=== PATIENT | male | born 1955 | race Caucasian/White ===

== ENCOUNTER → 2017-06-15 | Day surgery (SDC) | payer BC ==
[2017-06-03 13:23] VITALS: BMI 24.0
[~2017-06-15] VITALS: Ht 172.7 cm; Wt 72.7 kg
[~2017-06-15] MED LIST: FLUT50SP45 NAE; LIDOCAINE HCL 2% 2 ML VIAL (20MG/ML) ONE; PROPOFOL IV EMULSION 10 MG/ML 20 ML VIAL IV ONE
[2017-06-15 11:14] VITALS: Ht 172.7 cm; Wt 72.7 kg
--- NOTE | 2017-06-15 11:40 | Endo History and Physical ---
History & Physical Date of Service: Jun 15, 2017. Chief Complaint: SCREENING FOR COLON CANCER AND DYSPHAGIA Referring Physician: DR RAMBO ALCALA History of Present Illness 61 yo CM who presents for EGD secondary to dysphagia and screening colonoscopy. Past Surgical History Hx Cardiac Surgery: No Hx Internal Defibrillator: No Hx Pacemaker: No Hx Abdominal Surgery: No Hx of Implantable Prosthesis: No Hx Post-Op Nausea and Vomiting: No Hx Cancer Surgery: No Hx Thoracic Surgery: No Hx Orthopedic: Yes (LEFT ANKLE FX REPAIR, RT/LEFT KNEE SURGERY, PARTIAL FINGER AMPUTATION) Hx Urinary Tract Surgery: Yes (CYSTOCOPY AND STONE REMOVAL, LITHOTRIPSY) Family History None Social History Smoking Status: Never Smoker Hx Substance Use: No Hx Alcohol Use: Yes (8-10 BEERS PER WEEK) Allergies Coded Allergies: Neomycin (Verified Allergy, Unknown, rash from topical ointment, 06/03/17) Current Medications Reported Home Medications Medications Dose Route/Sig Max Daily Dose Days Date Category Allergy Nasal [place] 24 Ho (Fluticasone Propionate (Nasal)) 50 Mcg/Act Spr 1 [place] TODD DAILY PRN 06/03/17 Reported Vital Signs Weight (Kilograms): 72.73 Height (Feet): 5 Height (Inches): 8 Date Time Temp Pulse Resp B/P (MAP) Pulse Ox O2 Delivery O2 Flow Rate FiO2 06/15/17 11:19 37.2 67 18 170/95 (120) 95 Room Air Physical Exam General Appearance: WD/WN, no apparent distress Respiratory/Chest: Auscultation: breath sounds normal Cardiovascular: Heart Auscultation: RRR Abdomen: Bowel Sounds: normal Inspection & Palpation: soft, non-distended, no tenderness, guarding & rebound Assessment and Plan Assessment: 61 yo CM who presents for EGD secondary to dysphagia and screening colonoscopy. Plan: Proceed with EGD and colonoscopy.
--- NOTE | 2017-06-15 12:31 | Discharge Instructions ---
Endoscopy Patient Instructions Date / Procedure(s) Performed Jun 15, 2017. Colonoscopy, EGD Allergy Information Coded Allergies: Neomycin (Verified Allergy, Unknown, rash from topical ointment, 06/03/17) Discharge Date / Findings Jun 15, 2017. EGD: Esophageal brushings Colonoscopy: Diverticulosis, Internal hemorrhoids Medication Instructions OK to resume all medications today as prescribed Provider Instructions Activity Restrictions - No exercising or heavy lifting for 24 hours. - Do not drink alcohol the day of the procedure. - Do not drive a car or operate machinery until the day after the procedure. - Do not make any important decisions or sign important papers in 24 hours after the procedure. Following Day: - Return to full activity which may include returning to work/school. Diet Start your diet with liquids and light foods (jello, soup, juice, toast). Then eat your usual diet if not nauseated. Treatment For Common After Affects For mild abdominal pain, bloating, or excessive gas: - Rest - Eat lightly - Lie on right side Follow-Up Information Follow-up with DR RAMBO ALCALA as scheduled Anesthesia Information What You Should Know You have had a procedure that required some medicine to reduce anxiety and discomfort. This treatment is called moderate sedation. After receiving the treatment, you may be sleepy, but you will be able to breathe on your own. The effects of the treatment may last for several hours. Follow these instructions along with Activity/Diet recommendations noted above: * Do NOT do anything where dizziness or clumsiness would be dangerous. * Rest quietly at home today, then you can be up and about tomorrow. * Have a responsible person stay with you the rest of today. * You may have had an I.V. today. If so, you may take the dressing off later today. Recommendations Call your doctor if: * Trouble breathing * Continuous vomiting for more than 24 hours * Temperature above 101 degrees * Severe abdominal pain or bloating * Pain not relieved by pain medicine ordered * There is increased drainage or redness from any incision * A large amount of rectal bleeding greater than 2-3 tablespoons. (If you had a polyp/s removed or have hemorrhoids, a small amount of blood - from the rectum is to be expected.) * You have any unanswered questions or concerns. IN THE EVENT OF A SERIOUS EMERGENCY, GO TO THE NEAREST EMERGENCY ROOM Your discharge instructions were prepared by provider Ranjan Puckett. Patient Instructions Signature Page Damian Gee Patient (or Guardian) Signature/Date: I have read and understand the instructions given to me by my caregivers. Caregiver/RN/Doctor Signature/Date: The above-named patient and/or guardian has received patient instructions on this date. + Original Patient Signature Page (only) stays with chart. Please make copy for patient.
--- NOTE | 2017-06-15 12:41 | GI REPORT ---
Procedure Date: 06/15/2017 11:36 AM Procedure: Upper GI endoscopy Indications: Dysphagia Medicines: Monitored Anesthesia Care Complications: No immediate complications. Estimated Blood Loss: Estimated blood loss: none. Procedure: Pre-Anesthesia Assessment: - Prior to the procedure, a History and Physical was performed, and patient medications and allergies were reviewed. The patient's tolerance of previous anesthesia was also reviewed. The risks and benefits of the procedure and the sedation options and risks were discussed with the patient. All questions were answered, and informed consent was obtained. Prior Anticoagulants: The patient has taken no previous anticoagulant or antiplatelet agents. ASA Grade Assessment: II - A patient with mild systemic disease. After reviewing the risks and benefits, the patient was deemed in satisfactory condition to undergo the procedure. After obtaining informed consent, the endoscope was passed under direct vision. Throughout the procedure, the patient's blood pressure, pulse, and oxygen saturations were monitored continuously. The scope was introduced through the mouth, and advanced to the second part of duodenum. The upper GI endoscopy was accomplished without difficulty. The patient tolerated the procedure well. Findings: Patchy candidiasis was found in the middle third of the esophagus and in the lower third of the esophagus. Cells for cytology were obtained by brushing. The entire examined stomach was normal. The examined duodenum was normal. Impression: - Monilial esophagitis. Cells for cytology obtained. - Normal stomach. - Normal examined duodenum. Recommendation: - Resume previous diet. - Continue present medications. - Await pathology results from brushings. - Return to primary care physician as previously scheduled. Ranjan Puckett DO 06/15/2017 12:40:19 PM This report has been signed electronically. Note Initiated On: 06/15/2017 11:36 AM I attest to the content of the Intraoperative Record and orders documented therein, exceptions below
--- NOTE | 2017-06-15 12:42 | GI REPORT ---
Procedure Date: 06/15/2017 11:56 AM Procedure: Colonoscopy Indications: Screening for colorectal malignant neoplasm Medicines: Monitored Anesthesia Care Complications: No immediate complications. Estimated Blood Loss: Estimated blood loss: none. Procedure: Pre-Anesthesia Assessment: - Prior to the procedure, a History and Physical was performed, and patient medications and allergies were reviewed. The patient's tolerance of previous anesthesia was also reviewed. The risks and benefits of the procedure and the sedation options and risks were discussed with the patient. All questions were answered, and informed consent was obtained. Prior Anticoagulants: The patient has taken no previous anticoagulant or antiplatelet agents. ASA Grade Assessment: II - A patient with mild systemic disease. After reviewing the risks and benefits, the patient was deemed in satisfactory condition to undergo the procedure. After I obtained informed consent, the scope was passed under direct vision. Throughout the procedure, the patient's blood pressure, pulse, and oxygen saturations were monitored continuously. The On-site loaner was introduced through the anus and advanced to the terminal ileum. The colonoscopy was performed without difficulty. The patient tolerated the procedure well. The quality of the bowel preparation was good. The terminal ileum, ileocecal valve, appendiceal orifice, and rectum were photographed. Findings: The perianal and digital rectal examinations were normal. Multiple small-mouthed diverticula were found in the sigmoid colon. Non-bleeding internal hemorrhoids were found during retroflexion. The hemorrhoids were small. Impression: - Diverticulosis in the sigmoid colon. - Non-bleeding internal hemorrhoids. - No specimens collected. Recommendation: - Resume previous diet. - Continue present medications. - Repeat colonoscopy in 10 years for surveillance. - Return to primary care physician as previously scheduled. Ranjan Puckett, 06/15/2017 12:41:51 PM This report has been signed electronically. Note Initiated On: 06/15/2017 11:56 AM I attest to the content of the Intraoperative Record and orders documented therein, exceptions below
[2017-06-15 12:45] VITALS: BP 135/80; PULSE 56; O2SAT 96
--- NOTE | 2017-06-15 13:54 | Anesthesiology Progress Note ---
Anesthesia Post Op Note Date & Time Jun 15, 2017 at 13:54 Vital Signs Pain Intensity: 0 Vital Signs Past 12 Hours Date Time Temp Pulse Resp B/P (MAP) Pulse Ox O2 Delivery O2 Flow Rate FiO2 06/15/17 12:45 56 16 135/80 (98) 96 Room Air 06/15/17 12:30 55 16 138/84 (102) 95 Room Air 06/15/17 12:15 63 16 115/65 (82) 96 Room Air 06/15/17 11:19 37.2 67 18 170/95 (120) 95 Room Air Notes Mental Status: alert / awake / arousable, participated in evaluation Pt Amnestic to Procedure: Yes Nausea / Vomiting: adequately controlled Pain: adequately controlled Airway Patency, RR, SpO2: stable & adequate BP & HR: stable & adequate Hydration State: stable & adequate Anesthetic Complications: no major complications apparent
== END | disposition home or self-care (01) ==
LOC: C.GI 10:41
PROVIDERS: ATTEND Internal Medicine
DX: R13.10 Dysphagia, unspecified (principal); Z12.11 Encounter for screening for malignant neoplasm of colon; K57.30 Diverticulosis of large intestine without perforation or abscess without bleeding; K64.8 Other hemorrhoids; Z88.1 Allergy status to other antibiotic agents; I10 Essential (primary) hypertension; E78.5 Hyperlipidemia, unspecified; Z86.711 Personal history of pulmonary embolism; M19.90 Unspecified osteoarthritis, unspecified site; Z87.442 Personal history of urinary calculi

== ENCOUNTER → 2017-06-22 | Outpatient (CLI) | payer BC ==
[~2017-06-22] MED LIST changes: -LIDOCAINE HCL 2% 2 ML VIAL (20MG/ML) ONE; -PROPOFOL IV EMULSION 10 MG/ML 20 ML VIAL IV ONE
[2017-06-22 10:22] LABS: HEMATOCRIT 43.9 % (42-52); MEAN CELL VOLUME 96.1 fL (80-100); MEAN CORPUSCULAR HEMOGLOBIN 32.8 pg (25-34); MEAN CORPUSCULAR HGB CONC 34.2 g/dl (32-36); MEAN PLATELET VOLUME 12.1 fL (7.4-10.4); PLATELET COUNT 220 K/uL (130-400); RED CELL DISTRIBUTION WIDTH CV 12.5 % (11.5-14.5); RED CELL DISTRIBUTION WIDTH SD 43.7 fL (36.4-46.3); WHITE BLOOD COUNT 5.18 K/uL (4.8-10.8)
--- NOTE | 2017-06-22 10:23 | DIAGNOSTIC IMAGING REPORT ---
[facility]UB CLINICAL HISTORY: ABD PAIN pain. COMPARISON STUDY: No previous studies for comparison. FINDINGS: The soft tissues, psoas shadows, renal outlines and intestinal gas pattern appear normal. There is no evidence for bowel obstruction. No abnormal abdominal calcifications are seen. IMPRESSION: Normal study. The above report was generated using voice recognition software. It may contain grammatical, syntax or spelling errors. Electronically signed by: Khoi More M.D. 06/22/2017 10:22 AM Dictated Date/Time: 06/22/2017 10:21 AM
[2017-06-22 10:35] LABS: HEMOGLOBIN A1C 5.3 % (4.5-5.6)
[2017-06-22 12:54] LABS: ALBUMIN 3.5 gm/dl (3.4-5.0); ALT/SGPT 22 U/L (12-78); AST/SGOT 23 U/L (15-37); BLOOD UREA NITROGEN 17 mg/dl (7-18); CALCIUM 8.6 mg/dl (8.5-10.1); CARBON DIOXIDE 24 mmol/L (21-32); CREATININE 0.84 mg/dl (0.60-1.40); GLUCOSE 91 mg/dl (70-99); POTASSIUM 4.2 mmol/L (3.5-5.1); SODIUM 138 mmol/L (136-145)
[2017-06-22 12:58] LABS: ALKALINE PHOSPHATASE 50 U/L (45-117); CHOLESTEROL 176 mg/dl (0-200); LDL CHOLESTEROL CALCULATED 81 mg/dl; TOTAL PROTEIN 6.9 gm/dl (6.4-8.2)
== END | disposition home or self-care (01) ==
LOC: C.RAD 09:14
PROVIDERS: ATTEND Family Medicine
DX: E66.3 Overweight (principal); R10.9 Unspecified abdominal pain; B37.81 Candidal esophagitis

== ENCOUNTER 2023-12-06 20:22 | Observation (INO) ==
[2023-12-06] MEDS: SODIUM CHLORIDE 0.9% 1,000 ML IV ONE ×2 (20:39→21:24)
[2023-12-06 20:51] LABS: iSTAT Creatinine 1.5 mg/dl (0.6-1.3); iSTAT Ionized Calcium 1.24 mmol/l (1.12-1.32); iSTAT Potassium 4.5 mmol/L (3.3-5.0)
--- NOTE | 2023-12-06 20:52 | Emergency Department Note ---
Impression & Plan Acute alteration in mental status, Acute hypotension, Junctional bradycardia, HERSON (acute kidney injury) ED Provider Note NAME: JASWINDER GARNETT AGE: 68 SEX: M : 1955 ARRIVES VIA: Walk-In INFORMANT: Patient, the patient's significant other ED PROVIDER(S): Maximo Stelee DO CHIEF COMPLAINT: Weakness HPI: The patient is a 68-year-old male who presented to the emergency department for possible strokelike symptoms. The patient was at dinner with his significant other when he started feeling very warm and flushed. He started speaking but not making sense. She was concerned and brought him directly to the emergency department. There is no reported trauma. The patient is denying any abdominal pain but does complain of nausea. He is also been complaining of headaches over the course of last few weeks. This is different from him. He has been taking significant amounts of ibuprofen but he denies having any black or tarry stools. The patient denies having any vomiting. He denies having any chest pain. ROS: See above HPI for pertinent positives & negatives. A total of 10 systems reviewed and were otherwise negative. PAST MEDICAL HISTORY: See Below PAST SURGICAL HISTORY: See Below FAMILY HISTORY: See Below SOCIAL HISTORY: See Below HOME MEDICATIONS: See Below ALLERGIES: See Below VITALS: See Below PHYSICAL EXAMINATION: GENERAL: The is listless and slow to respond to questions. EYES: The conjunctivae are clear. The pupils are round and reactive. EARS, NOSE, MOUTH AND THROAT: The nose is without any evidence of any deformity. NECK: The neck is nontender and supple. RESPIRATORY: Normal respiratory effort is noted there is no evidence of wheezing rhonchi or rales CARDIOVASCULAR: Regular rate and rhythm noted there no murmurs rubs or gallops normal S1 normal S2. GASTROINTESTINAL: The abdomen is soft. The him and is distended with diffuse tenderness to palpation. There is no guarding rigidity. MUSCULOSKELETAL/EXTREMITIES: There is no evidence of gross deformity full range of motion is noted in the hips and shoulders. SKIN: Skin was cool and diaphoretic. There is no pedal edema. NEUROLOGIC: Patient is awake to verbal stimuli. He was oriented to person place and situation. Strength was symmetric but diminished. MEDICAL DECISION MAKING: The patient is a 68-year-old male who presented to the emergency department for an evaluation of altered mental status. The patient was at dinner with his significant other. He started acting inappropriately. She is a medical provider and was concerned he may be suffering from a stroke. The patient became very diaphoretic. He was having trouble ambulating. The patient arrived via triage. He was brought directly back to a resuscitation room. He was found to be hypotensive. The patient was also found to be bradycardic. His initial monitor appeared to be consistent with a junctional rhythm. The patient was immediately treated with IV fluids as well as IV antibiotics for possible sepsis. On reevaluation his heart rate had gone to a sinus rhythm. Blood pressure continue to augment after IV fluid hydration. I discussed the patient's laboratory and radiographic studies with him and his significant other. He did not appear to have any acute area of hemorrhage. Rectal exam revealed heme-negative stool. The patient was significantly improved on reevaluation and and I am wondering if this could be secondary to a cardiac dysrhythmia especially given the bradycardia noted on initial presentation. [facility] agreed to evaluate the patient in the emergency department for further management and disposition. Triage Nursing notes reviewed. Prior medical records reviewed Vital Signs: reviewed and remarkable for initial hypotension. Differential diagnosis: Vasovagal event, dehydration, infection, hypoglycemia, electrolyte abnormalities, cardiac sources, intracerebral event, pulmonary embolism, seizure, toxicologic, neurologic, as well as other pathologies. ER treatment provided: See below Diagnostics interpreted by me: ECG: EKG was obtained in the emergency department. My interpretation is bradycardia at 43 bpm. Mostly this was sinus but there was runs of junctional bradycardia. There is no acute ST segment abnormalities noted. There were no PVCs noted. This was compared to a tracing from May 01, 2023. The previous tracing did show sinus rhythm within normal rate. EKG was obtained in the emergency department. My interpretation is normal sinus rhythm at 63 bpm. There is no ectopy. There is no acute ST segment abnormalities noted. This compares similar to the EKG that was from May 01, 2023. Cardiac Monitoring: An order was placed for continuous cardiac monitoring. The monitor shows a rate of 65 bpm with sinus rhythm. Laboratory studies: As stated above and show below. Imaging studies: See below. Radiographic imaging was reviewed by myself Consultation(s): I discussed this case with Dr. Hernandez who is on-call for the [place] hospitalist group. ED COURSE: Procedures: none Critical Care: I have personally spent greater than 35 minutes of critical care time in the direct management of this patient. This includes bedside care, interpretation of diagnostic studies, and testing, discussion with consultants, patient, and family members, and other required patient management activities. This 35 minutes is in excess of all separately billable procedures. Past Med/Surg History Problem List (Updated 12/07/23 @ 01:27 by Maximo Steele DO) HERSON (acute kidney injury) (Acute) Junctional bradycardia (Acute) Acute hypotension (Acute) Acute alteration in mental status (Acute) Erectile dysfunction due to psychophysiologic disorder Hyperlipidemia ADHD GERD (gastroesophageal reflux disease) HTN (hypertension) (Acute) Medical History No pertinent family history Surgical History No pertinent past surgical history Family History Father Myocardial infarction Diabetes Hypertension Brother Prostate cancer Denies family history of Ovarian cancer Breast cancer Colorectal cancer Social History Smoking Status: Never smoker Second Hand Exposure: Yes; Hx Alcohol Use: No Hx Substance Use: No Preferred Language: Czech Visual Impairment: Limited Hearing Ability: Normal Beliefs That Will Affect Care: None marital status: Current Living Situation: Family current occupational status: retired Feels Safe at Home: Yes Childhood Exposure to Second-Hand Smoke: Yes Dental Care, Regularly: Yes Physical Activity Frequency: Daily Seatbelt Use: always Sunscreen Use: No Allergies Allergies Allergy/AdvReac Type Severity Reaction Status Date / Time neomycin Allergy Unknown rash from Verified 12/06/23 23:53 topical ointment Penicillins Allergy Rash Verified 12/06/23 23:53 Home Meds Home Medications Medication Instructions Recorded Confirmed cholecalciferol (vitamin D3) 25 25 mcg PO DAILY 12/06/23 12/06/23 mcg (1,000 unit) tablet (Vitamin D3) coQ10 (ubiquinol) 100 mg capsule 0 mg PO DAILY 12/06/23 12/06/23 dextroamphetamine-amphetamine ER 20 mg PO QAM 12/06/23 12/06/23 20 mg 24hr capsule,extend release irbesartan 300 mg tablet 300 mg PO DAILY 12/06/23 12/06/23 pantoprazole 40 mg tablet,delayed 40 mg PO DAILY 12/06/23 12/06/23 release rosuvastatin 10 mg tablet 10 mg PO HS 12/06/23 12/06/23 sildenafil 50 mg tablet 50 mg PO DAILY PRN .erectile 12/06/23 12/06/23 disfunction Results & Data (ED) Vital Signs Vital Signs - 24 hr 12/06/23 20:24 12/06/23 20:30 12/06/23 20:39 Temperature 36.7 C Temperature Source Temporal Artery Scan Pulse Rate 61 Pulse Rate [Apical] 49 L Pulse Rate from SpO2 Sensor Respiratory Rate 19 Respiratory Effort / Characteristics Respiratory Depth Respiratory Pattern Blood Pressure Blood Pressure [Right Arm] 83/51 L 79/56 L Blood Pressure Mean Blood Pressure Mean [Right Arm] 61 63 Blood Pressure Position [Right Arm] Pulse Oximetry 94 Oxygen Delivery Method Room Air Sepsis Recent Fever Within 48 Hours No Sepsis New/Unexplained Change in Mental Status N/A Sepsis Action Taken by Nursing No Action Required 12/06/23 20:40 12/06/23 20:41 12/06/23 20:45 Temperature Temperature Source Pulse Rate 50 L Pulse Rate [Apical] 59 L Pulse Rate from SpO2 Sensor Respiratory Rate Respiratory Effort / Characteristics Respiratory Depth Respiratory Pattern Blood Pressure Blood Pressure [Right Arm] 123/74 Blood Pressure Mean Blood Pressure Mean [Right Arm] 90 Blood Pressure Position [Right Arm] Pulse Oximetry 92 Oxygen Delivery Method Room Air Sepsis Recent Fever Within 48 Hours Sepsis New/Unexplained Change in Mental Status Sepsis Action Taken by Nursing 12/06/23 21:09 12/06/23 21:09 12/06/23 21:10 Temperature Temperature Source Pulse Rate 57 L Pulse Rate [Apical] Pulse Rate from SpO2 Sensor 59 L Respiratory Rate 20 Respiratory Effort / Characteristics Respiratory Depth Respiratory Pattern Blood Pressure 119/68 119/68 121/67 Blood Pressure [Right Arm] Blood Pressure Mean 86 85 88 Blood Pressure Mean [Right Arm] Blood Pressure Position [Right Arm] Pulse Oximetry 95 Oxygen Delivery Method Sepsis Recent Fever Within 48 Hours Sepsis New/Unexplained Change in Mental Status Sepsis Action Taken by Nursing 12/06/23 21:15 12/06/23 21:30 12/06/23 21:45 Temperature Temperature Source Pulse Rate 61 Pulse Rate [Apical] 62 62 Pulse Rate from SpO2 Sensor Respiratory Rate 24 20 Respiratory Effort / Characteristics Respiratory Depth Respiratory Pattern Blood Pressure 127/77 Blood Pressure [Right Arm] 125/72 116/67 Blood Pressure Mean 87 Blood Pressure Mean [Right Arm] 89 83 Blood Pressure Position [Right Arm] Semi-fowlers Pulse Oximetry 95 94 Oxygen Delivery Method Room Air Sepsis Recent Fever Within 48 Hours Sepsis New/Unexplained Change in Mental Status Sepsis Action Taken by Nursing 12/06/23 22:00 12/06/23 22:15 12/06/23 22:30 Temperature Temperature Source Pulse Rate Pulse Rate [Apical] 59 L 67 60 Pulse Rate from SpO2 Sensor Respiratory Rate 17 14 16 Respiratory Effort / Characteristics Non-Labored Spontaneous Respiratory Depth Normal Respiratory Pattern Regular Blood Pressure Blood Pressure [Right Arm] 108/62 107/71 108/73 Blood Pressure Mean Blood Pressure Mean [Right Arm] 77 83 84 Blood Pressure Position [Right Arm] Semi-fowlers Semi-fowlers Pulse Oximetry 94 97 94 Oxygen Delivery Method Room Air Room Air Room Air Sepsis Recent Fever Within 48 Hours Sepsis New/Unexplained Change in Mental Status Sepsis Action Taken by Nursing 12/06/23 22:45 12/06/23 23:43 Temperature Temperature Source Pulse Rate Pulse Rate [Apical] 67 60 Pulse Rate from SpO2 Sensor Respiratory Rate 19 19 Respiratory Effort / Characteristics Respiratory Depth Respiratory Pattern Blood Pressure Blood Pressure [Right Arm] 108/61 122/74 Blood Pressure Mean Blood Pressure Mean [Right Arm] 76 90 Blood Pressure Position [Right Arm] Semi-fowlers Pulse Oximetry 93 95 Oxygen Delivery Method Room Air Room Air Sepsis Recent Fever Within 48 Hours Sepsis New/Unexplained Change in Mental Status Sepsis Action Taken by [facility] Medications Current Medication List: was personally reviewed by me Laboratory Data Attestation: I reviewed the patient's lab results. 12/06/23 20:34 12/06/23 20:34 Lab Results 12/06/23 12/06/23 12/06/23 Range/Units 20:28 20:34 20:38 WBC 7.60 (4.8-10.8) K/ul RBC 4.78 (4.70-6.10) M/uL Hgb 15.8 (14.0-18.0) g/dl POC Hgb 15.0 (14.0-18.0) g/dl Hct 45.6 (42.0-52.0) % POC Hct 44 (42-52) % MCV 95.4 (80.0-100.0) fL MCH 33.1 (25.0-34.0) pg MCHC 34.6 (32.0-36.0) g/dL RDW Std Deviation 42.5 (36.4-46.3) fL RDW Coeff of Jaren 12.1 (11.5-14.5) % Plt Count 280 (130-400) K/uL MPV 11.7 (9.4-12.4) fL Immature Gran % (Auto) 0.3 % Neut % (Auto) 51.6 % Lymph % (Auto) 32.8 % Moca % (Auto) 11.7 % Eos % (Auto) 2.8 % Baso % (Auto) 0.8 % Neut # (Auto) 3.93 (1.40-6.50) K/uL Lymph # (Auto) 2.49 (1.20-3.40) K/uL Moca # (Auto) 0.89 H (0.11-0.59) K/uL Eos # (Auto) 0.21 (0.00-0.50) K/uL Baso # (Auto) 0.06 (0.00-0.20) K/uL Immature Gran # (Auto) 0.02 (0.01-0.20) K/uL PT 10.3 (9.0-12.0) Seconds INR 0.9 (0.9-1.1) APTT 22 (21-31) Seconds PTT Ratio 0.8 VBG pH (7.36-7.41) VBG pCO2 (38-50) mmHg VBG pO2 mmHg VBG HCO3 mmol/L VBG O2 Saturation % VBG Base Excess mEq/L POC Sodium 139 (135-144) mmol/L Sodium 139 (136-145) mmol/L POC Potassium 4.5 (3.3-5.0) mmol/L Potassium 4.6 (3.5-5.1) mmol/L POC Chloride 106 (101-112) mmol/L Chloride 105 (98-107) mmol/L Carbon Dioxide 24 (21-32) mmol/L POC Total CO2 22 L (24-31) mmol/L Anion Gap 10 (3-11) POC Anion Gap 17.0 (16-25) mmol/L POC BUN 23 H (7-18) mg/dl BUN 25 H (6-23) mg/dl Creatinine 1.41 H (0.6-1.4) mg/dl POC Creatinine 1.5 H (0.6-1.3) mg/dl Est Cr Clr Drug Dosing 55.2 ml/min Est GFR ( Amer) 59.3 ml/min Est GFR (Non-Af Amer) 51.2 ml/min BUN/Creatinine Ratio 17.7 (10-20) Glucose 94 (70-99(Fasting)) mg/dl POC Glucose 90 (70-99) mg/dl POC Glucose (other) 94 (70-99) mg/dl Lactate 2.4 H* (0.4-2.0) mmol/L Calcium 10.2 (8.6-10.3) mg/dl POC Ioniz Calcium [place] 1.24 (1.12-1.32) mmol/l Magnesium 2.2 (1.7-2.4) mg/dl Total Bilirubin 0.3 (0.2-1.0) mg/dl Direct Bilirubin TNP AST 28 (13-39) U/L ALT 18 (7-52) U/L Alkaline Phosphatase 62 (34-104) U/L Troponin I High Sens 11.4 (0-20) pg/ml Total Protein 7.6 (6.0-8.3) gm/dl Albumin 4.7 (3.4-5.0) gm/dl Procalcitonin 0.06 (0-0.5) ng/ml Random Cortisol mcg/dl Ethyl Alcohol mg/dL (<10.0) mg/dl Blood Type Antibody Screen 12/06/23 12/06/23 Range/Units 21:38 22:18 WBC (4.8-10.8) K/ul RBC (4.70-6.10) M/uL Hgb (14.0-18.0) g/dl POC Hgb (14.0-18.0) g/dl Hct (42.0-52.0) % POC Hct (42-52) % MCV (80.0-100.0) fL MCH (25.0-34.0) pg MCHC (32.0-36.0) g/dL RDW Std Deviation (36.4-46.3) fL RDW Coeff of Jaren (11.5-14.5) % Plt Count (130-400) K/uL MPV (9.4-12.4) fL Immature Gran % (Auto) % Neut % (Auto) % Lymph % (Auto) % Moca % (Auto) % Eos % (Auto) % Baso % (Auto) % Neut # (Auto) (1.40-6.50) K/uL Lymph # (Auto) (1.20-3.40) K/uL Moca # (Auto) (0.11-0.59) K/uL Eos # (Auto) (0.00-0.50) K/uL Baso # (Auto) (0.00-0.20) K/uL Immature Gran # (Auto) (0.01-0.20) K/uL PT (9.0-12.0) Seconds INR (0.9-1.1) APTT (21-31) Seconds PTT Ratio VBG pH 7.32 L (7.36-7.41) VBG pCO2 48 (38-50) mmHg VBG pO2 44 mmHg VBG HCO3 25 mmol/L VBG O2 Saturation 70.0 % VBG Base Excess -1.8 mEq/L POC Sodium (135-144) mmol/L Sodium (136-145) mmol/L POC Potassium (3.3-5.0) mmol/L Potassium (3.5-5.1) mmol/L POC Chloride (101-112) mmol/L Chloride (98-107) mmol/L Carbon Dioxide (21-32) mmol/L POC Total CO2 (24-31) mmol/L Anion Gap (3-11) POC Anion Gap (16-25) mmol/L POC BUN (7-18) mg/dl BUN (6-23) mg/dl Creatinine (0.6-1.4) mg/dl POC Creatinine (0.6-1.3) mg/dl Est Cr Clr Drug Dosing ml/min Est GFR ( Amer) ml/min Est GFR (Non-Af Amer) ml/min BUN/Creatinine Ratio (10-20) Glucose (70-99(Fasting)) mg/dl POC Glucose (70-99) mg/dl POC Glucose (other) (70-99) mg/dl Lactate 1.4 (0.4-2.0) mmol/L Calcium (8.6-10.3) mg/dl POC Ioniz Calcium Carolina (1.12-1.32) mmol/l Magnesium (1.7-2.4) mg/dl Total Bilirubin (0.2-1.0) mg/dl Direct Bilirubin AST (13-39) U/L ALT (7-52) U/L Alkaline Phosphatase (34-104) U/L Troponin I High Sens (0-20) pg/ml Total Protein (6.0-8.3) gm/dl Albumin (3.4-5.0) gm/dl Procalcitonin (0-0.5) ng/ml Random Cortisol 20.23 mcg/dl Ethyl Alcohol mg/dL < 10.0 (<10.0) mg/dl Blood Type A Positive Antibody Screen NEGATIVE Administered Medications Discontinued Medications Sodium Chloride (Nss) 1,000 mls @ 999 mls/hr IV .Q1H1M ONE Stop: 12/06/23 21:34 Last Infusion: 12/06/23 21:40 Dose: Infused Documented By: Admin: 12/06/23 20:39 Dose: 999 mls/hr Documented By: BRUNO Ceftriaxone Sodium (Rocephin) 2,000 mg in 50 mls @ 100 mls/hr IV NOW STA Stop: 12/06/23 21:03 Last Infusion: 12/06/23 22:05 Dose: Infused Documented By: Admin: 12/06/23 21:35 Dose: 100 mls/hr Documented By: BRUNO Pantoprazole Sodium 40 mg/ (Syringe) 10 mls @ 5 mls/min IV NOW ONE Stop: 12/06/23 20:36 Last Admin: 12/06/23 22:01 Dose: 5 mls/min Documented By: BRUNO Famotidine (Pepcid 20mg Iv Push) 20 mg in 5 mls @ 2.5 mls/min IV NOW STA Stop: 12/06/23 20:36 Last Admin: 12/06/23 21:27 Dose: 2.5 mls/min Documented By: BRUNO Sodium Chloride (Nss) 1,000 mls @ 999 mls/hr IV .Q1H1M ONE Stop: 12/06/23 21:40 Last Infusion: 12/06/23 22:20 Dose: Infused Documented By: Admin: 12/06/23 21:24 Dose: 999 mls/hr Documented By: BRUNO Thiamine HCl 200 mg/ Sodium (Chloride) 52 mls @ 210 mls/hr IV NOW STA Stop: 12/06/23 20:58 Last Infusion: 12/06/23 22:24 Dose: Infused Documented By: Admin: 12/06/23 22:03 Dose: 210 mls/hr Documented By: BRUNO Ioversol (Optiray 320 125ml) 115 ml IV ONCE ONE Stop: 12/06/23 21:04 Last Admin: 12/06/23 21:03 Dose: 115 ml Documented By: JOE Imaging Data Attestation: I personally reviewed and interpreted this imaging study as follows: My Impression: 1 view chest x-ray was obtained in the emergency department. My interpretation is no free air or definite infiltrate, final report below. CT of the brain was obtained in the emergency department. My interpretation is no intracranial hemorrhage or mass effect, final report below. CT of the chest was obtained in the emergency department. My interpretation is no free air or signs of infiltrate, final report below. CT of the abdomen and pelvis was obtained in the emergency department. My interpretation is no free air or signs of bowel obstruction, there was enlargement of the gastric shadow, final report below. Radiologist's Impression: Abdomen/Pelvis CT 12/06/23 20:43 Exam(s): CT ABDOMEN + PELVIS With Contrast IV Amt: 115 ml opti 320 EXAM: CT Abdomen and Pelvis With Intravenous Contrast CLINICAL HISTORY: low BP. TECHNIQUE: Axial computed tomography images of the abdomen and pelvis with intravenous contrast. CTDI is 27.86 mGy and DLP is 1387.11 mGy-cm. Automated exposure control was utilized for the study. A dose lowering technique was utilized adhering to the principles of ALARA. CONTRAST: Patient received 115 ml opti 320 of IV contrast COMPARISON: No relevant prior studies available. FINDINGS: Lung bases: For findings regarding the lung bases, please see the CTA report of the chest performed concurrently. No consolidation. ABDOMEN: Liver: Unremarkable. No mass. Gallbladder and bile ducts: Unremarkable. No calcified stones. No ductal dilation. Pancreas: Unremarkable. No mass. No ductal dilation. Spleen: Unremarkable. No splenomegaly. Adrenals: Unremarkable. No mass. Kidneys and ureters: Kidneys demonstrate normal enhancement. No hydronephrosis or nephrolithiasis. Cortical cysts are noted laterally and posteriorly involving the left mid to inferior pole with the largest cyst laterally measuring 3.1 x 3.8 cm. No definite internal solid components or complex features. No follow-up required. Stomach and bowel: Stomach is moderately to nearly completely distended with retained oral contents. No gastric mucosal thickening noted. No evidence for bowel obstruction. No definite asymmetric bowel mucosal abnormality. Retained fecal appearing material in nondilated distal small bowel loops noted in the pelvis. Mild stool burden. Diverticulosis noted involving the sigmoid colon. No obvious diverticulitis, accounting for limitations with mild respiratory artifact. PELVIS: Appendix: A normal caliber appendix is noted in the right lower quadrant. Bladder: Unremarkable. No mass. Reproductive: Unremarkable as visualized. ABDOMEN and PELVIS: Intraperitoneal space: Unremarkable. No free air. No significant fluid collection. Bones/joints: No acute fracture. No dislocation. Soft tissues: Unremarkable. Vasculature: Atherosclerotic calcification involving the aorta. No dissection or aneurysm. Atherosclerotic changes also noted involving the iliac arteries. Lymph nodes: Unremarkable. No enlarged lymph nodes. IMPRESSION: 1. No evidence for bowel obstruction. No definite asymmetric bowel mucosal abnormality. Retained fecal appearing material in nondilated distal small bowel loops noted in the pelvis is a nonspecific finding and is presumed normal variation. Mild enteritis with delayed transit through the small bowel is also a consideration. 2. Mild stool burden. Diverticulosis noted involving the sigmoid colon. No obvious diverticulitis, accounting for limitations with mild respiratory artifact. No free intraperitoneal fluid or pneumoperitoneum. Incidental normal caliber appendix. 3. Atherosclerotic calcification of the abdominal aorta. No dissection, significant aneurysm or acute retroperitoneal abnormality. 4. No acute osseous abnormality. Electronically signed by: Slim Dc MD 12/06/23 22:14 PM Chest CTA 12/06/23 20:43 Exam(s): CTA CHEST EXAM: CT Angiography Chest With Intravenous Contrast CLINICAL HISTORY: Evaluate for PE. TECHNIQUE: Axial computed tomographic angiography images of the chest with intravenous contrast. CTDI is 27.86 mGy and DLP is 1387.11 mGy-cm. Automated exposure control was utilized for the study. A dose lowering technique was utilized adhering to the principles of ALARA. MIP reconstructed images were created and reviewed. COMPARISON: CTA chest dated 10/16/2010 FINDINGS: Pulmonary arteries: Unremarkable. No pulmonary embolism. Aorta: The thoracic aorta is elongated and somewhat tortuous but is normal in caliber without evidence for aneurysm. No dissection. Lungs: No focal consolidation. No mass. Minimal dependent subsegmental atelectatic changes in the posterior lower lobes. Pleural space: Unremarkable. No significant effusion. No pneumothorax. Heart: The cardiac chambers are upper normal limits, stable from the previous examination. Mild prominence of the right ventricle is stable in appearance. Bones/joints: Multilevel degenerative changes involving the thoracic spine. Chronic anterior wedging noted involving T6-T8 levels. Multilevel degenerative changes with anterior hypertrophic osteophytes. No dislocation. Soft tissues: Unremarkable. Lymph nodes: Unremarkable. No enlarged lymph nodes. IMPRESSION: No pulmonary embolism. Electronically signed by: Slim Dc MD 12/06/23 22:[address] 12/06/23 20:43 Exam(s): CT HEAD Without Contrast EXAM: CT Head Without Intravenous Contrast CLINICAL HISTORY: low bp. TECHNIQUE: Axial computed tomography images of the head/brain without intravenous contrast. CTDI is 27.86 mGy and DLP is 1387.11 mGy-cm. Automated exposure control was utilized for the study. A dose lowering technique was utilized adhering to the principles of ALARA. COMPARISON: No relevant prior studies available. FINDINGS: Brain: No intracranial hemorrhage. No significant mass effect. No evidence for cortical infarct. Minimal periventricular deep white matter hypodense changes noted bilaterally. Ventricles: No midline shift or ventriculomegaly. Bones/joints: Unremarkable. No acute fracture. Soft tissues: Unremarkable. Sinuses: Unremarkable as visualized. No acute sinusitis. Mastoid air cells: Unremarkable as visualized. No mastoid effusion. IMPRESSION: No acute intracranial process identified. Electronically signed by: Slim Dc MD 12/06/23 22:39 PM Head CTA 12/06/23 20:43 Exam(s): CTA HEAD With Contrast IV Amt: 115 ml opti 320 EXAM: CT Angiography Head With Intravenous Contrast CLINICAL HISTORY: low BP. TECHNIQUE: Axial computed tomographic angiography images of the head with intravenous contrast. CTDI is 27.86 mGy and DLP is 1387.11 mGy-cm. Automated exposure control was utilized for the study. A dose lowering technique was utilized adhering to the principles of ALARA. MIP reconstructed images were created and reviewed. CONTRAST: Patient received 115 ml opti 320 of IV contrast COMPARISON: Noncontrast exam performed earlier FINDINGS: Right internal carotid artery: No acute findings. Intracranial segment is patent with no significant stenosis. No aneurysm. Right anterior cerebral artery: Unremarkable. No occlusion or significant stenosis. No aneurysm. Right middle cerebral artery: Unremarkable. No occlusion or significant stenosis. No aneurysm. Right posterior cerebral artery: Unremarkable. No occlusion or significant stenosis. No aneurysm. Right vertebral artery: Unremarkable as visualized. Left internal carotid artery: Moderate atherosclerotic calcification involving the mid to distal left cavernous internal carotid artery segment. No definite stenosis. The petrous and supraclinoid segments are patent. No aneurysm. Left anterior cerebral artery: Unremarkable. No occlusion or significant stenosis. No aneurysm. Left middle cerebral artery: Unremarkable. No occlusion or significant stenosis. No aneurysm. Left posterior cerebral artery: Unremarkable. No occlusion or significant stenosis. No aneurysm. Left vertebral artery: Unremarkable as visualized. Basilar artery: Unremarkable. No occlusion or significant stenosis. No aneurysm. Dural sinuses/cerebral veins: The dural sinuses are unremarkable. Brain: No abnormal parenchymal enhancement identified. IMPRESSION: Negative intracranial CTA examination. Electronically signed by: Slim Dc MD 12/06/23 22:48 PM Neck CTA 12/06/23 20:43 Exam(s): CTA NECK With Contrast IV Amt: 115 ml opti 320 EXAM: CT Angiography Neck With Intravenous Contrast CLINICAL HISTORY: low BP. TECHNIQUE: Routine carotid CT angiography protocol was performed with intravenous contrast. NASCET criteria using the distal ICAs for comparison were used for evaluation of stenoses. CTDI is 27.86 mGy and DLP is 1387.11 mGy-cm (single acquisition head and neck). Automated exposure control was utilized for the study. A dose lowering technique was utilized adhering to the principles of ALARA. MIP reconstructed images were created and reviewed. CONTRAST: Patient received 115 ml opti 320 of IV contrast (single dose for head and neck) COMPARISON: None. FINDINGS: VASCULATURE: Right common carotid artery: Mild intimal hyperplasia involving the right common carotid artery without significant narrowing. No dissection. Right internal carotid artery: Partially calcified atheromatous changes noted involving the proximal right internal carotid artery, extending to the carotid bifurcation. There is no significant narrowing by NASCET criteria. The distal right internal carotid artery is tortuous but is widely patent. No dissection. Right external carotid artery: Unremarkable. No occlusion. Right vertebral artery: Unremarkable. No occlusion or significant stenosis. No dissection. Left common carotid artery: Mild intimal hyperplasia involving the distal left common carotid artery without significant stenosis. No dissection. Left internal carotid artery: Partially calcified atherosclerotic disease involving the proximal left internal carotid artery, extending to the carotid bifurcation. No significant narrowing by NASCET criteria. The mid to distal left internal carotid artery is tortuous but is patent. No dissection. Left external carotid artery: Unremarkable. No occlusion. Left vertebral artery: Unremarkable. No occlusion or significant stenosis. No dissection. Brachiocephalic and subclavian arteries: There is a type II branching pattern of the proximal great vessels without significant ostial stenosis. Aorta: The aortic arch is tortuous but is patent without aneurysm or dissection. NECK: Bones/joints: Unremarkable. No acute fracture. Soft tissues: Unremarkable. Lung apices: Clear. CAROTID STENOSIS REFERENCE USING NASCET CRITERIA: % ICA stenosis = (1 - narrowest ICA diameter/diameter of distal cervical ICA) x 100. Mild - <50% stenosis. Moderate - 50-69% stenosis. Severe - 70-94% stenosis. Near occlusion - 95-99% stenosis. Occluded - 100% stenosis. IMPRESSION: 1. Atherosclerotic disease involving the carotid bifurcations without significant stenosis bilaterally. The common carotid and internal carotid arteries are otherwise patent. 2. The vertebral arteries are patent bilaterally without stenosis or occlusion. Electronically signed by: Slim Dc MD 12/06/23 23:02 PM Discharge Plan Visit Data Chief Complaint: TIA Symptoms Stated Complaint: NUMB FINGERS, SWEATS, DIZZY, HEADACHE, VISUAL DIST ED Provider: Maximo Steele Discharge Problem: Acute alteration in mental status, Acute hypotension, Junctional bradycardia, HERSON (acute kidney injury) Patient Disposition: Admitted As Inpatient Discharge Instructions Interventions: ED Discharge Assessment Last Done: 12/07/23 01:05
[2023-12-06] MEDS: OPTIRAY 320 125ml IV ONE (21:03)
[2023-12-06 21:20] LABS: Alanine Aminotransferase 18 U/L (7-52); Albumin Level 4.7 gm/dl (3.4-5.0); Alkaline Phosphatase 62 U/L (34-104); Anion Gap 10 (3-11); Aspartate Aminotransferase 28 U/L (13-39); BUN Creatinine Ratio 17.7 (10-20); Bilirubin,Total 0.3 mg/dl (0.2-1.0); Blood Urea Nitrogen 25 mg/dl (6-23); Calcium 10.2 mg/dl (8.6-10.3); Carbon Dioxide 24 mmol/L (21-32); Chloride 105 mmol/L (98-107); Creatinine Clr Calc Pharmacy 55.2 ml/min; Est GFR (African American) 59.3 ml/min; Est GFR (Non-African American) 51.2 ml/min; Glucose 94 mg/dl (70-99(Fasting)); Magnesium 2.2 mg/dl (1.7-2.4); Potassium 4.6 mmol/L (3.5-5.1); Sodium 139 mmol/L (136-145); Total Protein 7.6 gm/dl (6.0-8.3)
[2023-12-06 21:22] LABS: Basophils # (auto) 0.06 K/uL (0.00-0.20); Basophils % (auto) 0.8 %; Eosinophils # (auto) 0.21 K/uL (0.00-0.50); Eosinophils % (auto) 2.8 %; Hematocrit (blood only) 45.6 % (42.0-52.0); Hemoglobin 15.8 g/dl (14.0-18.0); Immature Granulocytes # (auto) 0.02 K/uL (0.01-0.20); Immature Granulocytes % (auto) 0.3 %; Lymphocytes # (auto) 2.49 K/uL (1.20-3.40); Lymphocytes % (auto) 32.8 %; Mean Corpuscular Hemoglobin 33.1 pg (25.0-34.0); Mean Corpuscular Hgb Conc 34.6 g/dL (32.0-36.0); Mean Corpuscular Volume 95.4 fL (80.0-100.0); Mean Platelet Volume 11.7 fL (9.4-12.4); Monocytes # (auto) 0.89 K/uL (0.11-0.59); Monocytes % (auto) 11.7 %; Neutrophils # (auto) 3.93 K/uL (1.40-6.50); Neutrophils % (auto) 51.6 %; Platelet Count 280 K/uL (130-400); RDW Coefficient of Variation 12.1 % (11.5-14.5); RDW Standard Deviation 42.5 fL (36.4-46.3); Red Blood Count 4.78 M/uL (4.70-6.10)
[2023-12-06] MEDS: FAMOTIDINE 20MG IV PUSH 20 MG/5 ML SYR IV STA (21:27)
[2023-12-06 21:28] LABS: INR 0.9 (0.9-1.1); Partial Thromboplastin Ratio 0.8; Partial Thromboplastin Time 22 Seconds (21-31); Prothrombin Time 10.3 Seconds (9.0-12.0)
[2023-12-06] MEDS: cefTRIAXone SODIUM 2,000 MG/50 ML BAG IV STA (21:35)
[2023-12-06 21:40] LABS: Troponin I High Sensitivity 11.4 pg/ml (0-20)
[2023-12-06 21:57] LABS: Base Excess VBG -1.8 mEq/L; HCO3 VBG 25 mmol/L; PCO2 VBG 48 mmHg (38-50); PO2 VBG 44 mmHg; pH VBG 7.32 (7.36-7.41)
[2023-12-06] MEDS: PANTOprazole 40 MG in SYRINGE 0 ML IV ONE (22:01)
[2023-12-06] MEDS: THIAMINE HCL 200 MG in SODIUM CHLORIDE 0.9% 50 ML IV STA (22:03)
--- NOTE | 2023-12-06 22:15 | CT Scan Report ---
Exam(s): CT ABDOMEN + PELVIS With Contrast IV Amt: 115 ml opti 320 EXAM: CT Abdomen and Pelvis With Intravenous Contrast CLINICAL HISTORY: low BP. TECHNIQUE: Axial computed tomography images of the abdomen and pelvis with intravenous contrast. CTDI is 27.86 mGy and DLP is 1387.11 mGy-cm. Automated exposure control was utilized for the study. A dose lowering technique was utilized adhering to the principles of ALARA. CONTRAST: Patient received 115 ml opti 320 of IV contrast COMPARISON: No relevant prior studies available. FINDINGS: Lung bases: For findings regarding the lung bases, please see the CTA report of the chest performed concurrently. No consolidation. ABDOMEN: Liver: Unremarkable. No mass. Gallbladder and bile ducts: Unremarkable. No calcified stones. No ductal dilation. Pancreas: Unremarkable. No mass. No ductal dilation. Spleen: Unremarkable. No splenomegaly. Adrenals: Unremarkable. No mass. Kidneys and ureters: Kidneys demonstrate normal enhancement. No hydronephrosis or nephrolithiasis. Cortical cysts are noted laterally and posteriorly involving the left mid to inferior pole with the largest cyst laterally measuring 3.1 x 3.8 cm. No definite internal solid components or complex features. No follow-up required. Stomach and bowel: Stomach is moderately to nearly completely distended with retained oral contents. No gastric mucosal thickening noted. No evidence for bowel obstruction. No definite asymmetric bowel mucosal abnormality. Retained fecal appearing material in nondilated distal small bowel loops noted in the pelvis. Mild stool burden. Diverticulosis noted involving the sigmoid colon. No obvious diverticulitis, accounting for limitations with mild respiratory artifact. PELVIS: Appendix: A normal caliber appendix is noted in the right lower quadrant. Bladder: Unremarkable. No mass. Reproductive: Unremarkable as visualized. ABDOMEN and PELVIS: Intraperitoneal space: Unremarkable. No free air. No significant fluid collection. Bones/joints: No acute fracture. No dislocation. Soft tissues: Unremarkable. Vasculature: Atherosclerotic calcification involving the aorta. No dissection or aneurysm. Atherosclerotic changes also noted involving the iliac arteries. Lymph nodes: Unremarkable. No enlarged lymph nodes. IMPRESSION: 1. No evidence for bowel obstruction. No definite asymmetric bowel mucosal abnormality. Retained fecal appearing material in nondilated distal small bowel loops noted in the pelvis is a nonspecific finding and is presumed normal variation. Mild enteritis with delayed transit through the small bowel is also a consideration. 2. Mild stool burden. Diverticulosis noted involving the sigmoid colon. No obvious diverticulitis, accounting for limitations with mild respiratory artifact. No free intraperitoneal fluid or pneumoperitoneum. Incidental normal caliber appendix. 3. Atherosclerotic calcification of the abdominal aorta. No dissection, significant aneurysm or acute retroperitoneal abnormality. 4. No acute osseous abnormality. Electronically signed by: Slim Dc MD 12/06/23 22:14 PM
--- NOTE | 2023-12-06 22:18 | CT Scan Report ---
Exam(s): CTA CHEST EXAM: CT Angiography Chest With Intravenous Contrast CLINICAL HISTORY: Evaluate for PE. TECHNIQUE: Axial computed tomographic angiography images of the chest with intravenous contrast. CTDI is 27.86 mGy and DLP is 1387.11 mGy-cm. Automated exposure control was utilized for the study. A dose lowering technique was utilized adhering to the principles of ALARA. MIP reconstructed images were created and reviewed. COMPARISON: CTA chest dated 10/16/2010 FINDINGS: Pulmonary arteries: Unremarkable. No pulmonary embolism. Aorta: The thoracic aorta is elongated and somewhat tortuous but is normal in caliber without evidence for aneurysm. No dissection. Lungs: No focal consolidation. No mass. Minimal dependent subsegmental atelectatic changes in the posterior lower lobes. Pleural space: Unremarkable. No significant effusion. No pneumothorax. Heart: The cardiac chambers are upper normal limits, stable from the previous examination. Mild prominence of the right ventricle is stable in appearance. Bones/joints: Multilevel degenerative changes involving the thoracic spine. Chronic anterior wedging noted involving T6-T8 levels. Multilevel degenerative changes with anterior hypertrophic osteophytes. No dislocation. Soft tissues: Unremarkable. Lymph nodes: Unremarkable. No enlarged lymph nodes. IMPRESSION: No pulmonary embolism. Electronically signed by: Slim Dc MD 12/06/23 22:17 PM
--- NOTE | 2023-12-06 22:39 | CT Scan Report ---
Exam(s): CT HEAD Without Contrast EXAM: CT Head Without Intravenous Contrast CLINICAL HISTORY: low bp. TECHNIQUE: Axial computed tomography images of the head/brain without intravenous contrast. CTDI is 27.86 mGy and DLP is 1387.11 mGy-cm. Automated exposure control was utilized for the study. A dose lowering technique was utilized adhering to the principles of ALARA. COMPARISON: No relevant prior studies available. FINDINGS: Brain: No intracranial hemorrhage. No significant mass effect. No evidence for cortical infarct. Minimal periventricular deep white matter hypodense changes noted bilaterally. Ventricles: No midline shift or ventriculomegaly. Bones/joints: Unremarkable. No acute fracture. Soft tissues: Unremarkable. Sinuses: Unremarkable as visualized. No acute sinusitis. Mastoid air cells: Unremarkable as visualized. No mastoid effusion. IMPRESSION: No acute intracranial process identified. Electronically signed by: Slim Dc MD 12/06/23 22:39 PM
--- NOTE | 2023-12-06 22:49 | CT Scan Report ---
Exam(s): CTA HEAD With Contrast IV Amt: 115 ml opti 320 EXAM: CT Angiography Head With Intravenous Contrast CLINICAL HISTORY: low BP. TECHNIQUE: Axial computed tomographic angiography images of the head with intravenous contrast. CTDI is 27.86 mGy and DLP is 1387.11 mGy-cm. Automated exposure control was utilized for the study. A dose lowering technique was utilized adhering to the principles of ALARA. MIP reconstructed images were created and reviewed. CONTRAST: Patient received 115 ml opti 320 of IV contrast COMPARISON: Noncontrast exam performed earlier FINDINGS: Right internal carotid artery: No acute findings. Intracranial segment is patent with no significant stenosis. No aneurysm. Right anterior cerebral artery: Unremarkable. No occlusion or significant stenosis. No aneurysm. Right middle cerebral artery: Unremarkable. No occlusion or significant stenosis. No aneurysm. Right posterior cerebral artery: Unremarkable. No occlusion or significant stenosis. No aneurysm. Right vertebral artery: Unremarkable as visualized. Left internal carotid artery: Moderate atherosclerotic calcification involving the mid to distal left cavernous internal carotid artery segment. No definite stenosis. The petrous and supraclinoid segments are patent. No aneurysm. Left anterior cerebral artery: Unremarkable. No occlusion or significant stenosis. No aneurysm. Left middle cerebral artery: Unremarkable. No occlusion or significant stenosis. No aneurysm. Left posterior cerebral artery: Unremarkable. No occlusion or significant stenosis. No aneurysm. Left vertebral artery: Unremarkable as visualized. Basilar artery: Unremarkable. No occlusion or significant stenosis. No aneurysm. Dural sinuses/cerebral veins: The dural sinuses are unremarkable. Brain: No abnormal parenchymal enhancement identified. IMPRESSION: Negative intracranial CTA examination. Electronically signed by: Slim Dc MD 12/06/23 22:48 PM
--- NOTE | 2023-12-06 23:03 | CT Scan Report ---
Exam(s): CTA NECK With Contrast IV Amt: 115 ml opti 320 EXAM: CT Angiography Neck With Intravenous Contrast CLINICAL HISTORY: low BP. TECHNIQUE: Routine carotid CT angiography protocol was performed with intravenous contrast. NASCET criteria using the distal ICAs for comparison were used for evaluation of stenoses. CTDI is 27.86 mGy and DLP is 1387.11 mGy-cm (single acquisition head and neck). Automated exposure control was utilized for the study. A dose lowering technique was utilized adhering to the principles of ALARA. MIP reconstructed images were created and reviewed. CONTRAST: Patient received 115 ml opti 320 of IV contrast (single dose for head and neck) COMPARISON: None. FINDINGS: VASCULATURE: Right common carotid artery: Mild intimal hyperplasia involving the right common carotid artery without significant narrowing. No dissection. Right internal carotid artery: Partially calcified atheromatous changes noted involving the proximal right internal carotid artery, extending to the carotid bifurcation. There is no significant narrowing by NASCET criteria. The distal right internal carotid artery is tortuous but is widely patent. No dissection. Right external carotid artery: Unremarkable. No occlusion. Right vertebral artery: Unremarkable. No occlusion or significant stenosis. No dissection. Left common carotid artery: Mild intimal hyperplasia involving the distal left common carotid artery without significant stenosis. No dissection. Left internal carotid artery: Partially calcified atherosclerotic disease involving the proximal left internal carotid artery, extending to the carotid bifurcation. No significant narrowing by NASCET criteria. The mid to distal left internal carotid artery is tortuous but is patent. No dissection. Left external carotid artery: Unremarkable. No occlusion. Left vertebral artery: Unremarkable. No occlusion or significant stenosis. No dissection. Brachiocephalic and subclavian arteries: There is a type II branching pattern of the proximal great vessels without significant ostial stenosis. Aorta: The aortic arch is tortuous but is patent without aneurysm or dissection. NECK: Bones/joints: Unremarkable. No acute fracture. Soft tissues: Unremarkable. Lung apices: Clear. CAROTID STENOSIS REFERENCE USING NASCET CRITERIA: % ICA stenosis = (1 - narrowest ICA diameter/diameter of distal cervical ICA) x 100. Mild - <50% stenosis. Moderate - 50-69% stenosis. Severe - 70-94% stenosis. Near occlusion - 95-99% stenosis. Occluded - 100% stenosis. IMPRESSION: 1. Atherosclerotic disease involving the carotid bifurcations without significant stenosis bilaterally. The common carotid and internal carotid arteries are otherwise patent. 2. The vertebral arteries are patent bilaterally without stenosis or occlusion. Electronically signed by: Slim Dc MD 12/06/23 23:02 PM
--- NOTE | 2023-12-07 00:13 | History & Physical Report ---
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 Patient with episode of dizziness, hypotension and bradycardia. Symptomatic with dizziness and near syncope, visual changes Had mild elevation of lactate initially at 2.4 which normalized to 1.4 following IVF. BP and HR improved after IVF -Admit to medical with telemetry -Trend troponin -Consider Cardiology consultation -May benefit from outpatient event monitoring (2) Acute hypotension: Plan: Resolved following IVF Continue to monitor Plan Hyperlipidemia - chronic. stabe -Continue Crestor GERD - chronic. stable -Continue Protonix Hypertension - chronic. stable -Continue Losartan - will hold if Cr worsens ADHD - chronic. stable -Continue Dextroamphetamine F/E/N - Saline lock. Electrolytes WNL. AHA diet as tolerated Ppx - low risk for DVT Code - Full Dispo - Admit to medical with telemetry History of Present Illness Chief Complaint: dizziness Primary Care Provider: Rai Hadley Damian Gee is a 68yo male with history of GERD and HTN presenting with episode of diaphoresis and dizziness. Patient had been in his usual state of health. He was out to dinner this evening with his when he started feeling ill. He had fairly sudden onset of profuse diaphoresis, dizziness and lightheadedness. He was speaking but not making sense. He reports that he had some visual disturbance as well - things appeared to be blurry. He felt very weak and lethargic. He reports that his was having a difficult time palpating a pulse so she brought him to the ER. Hypotensive on arrival with BP of 79/56. Bradycardic with HR in the 30-40's initially - questionable junctional rhythm on monitor and initial EKG. Patient reports symptoms have been improving since receiving IVF. He denies fever, chills, chest pain, palpitations, cough, SOB, abdominal pain, nausea, vomiting or diarrhea. ER Course: NSS x 2L Pepcid Ceftriaxone Protonix Thiamine Allergies Allergy/AdvReac Type Severity Reaction Status Date / Time neomycin Allergy Unknown rash from Verified 12/06/23 23:53 topical ointment Penicillins Allergy Rash Verified 12/06/23 23:53 Home Medications Medication Instructions Recorded Confirmed Type cholecalciferol (vitamin D3) 25 25 mcg PO DAILY 12/06/23 12/06/23 History mcg (1,000 unit) tablet (Vitamin D3) coQ10 (ubiquinol) 100 mg capsule 0 mg PO DAILY 12/06/23 12/06/23 History dextroamphetamine-amphetamine ER 20 mg PO QAM 12/06/23 12/06/23 History 20 mg 24hr capsule,extend release irbesartan 300 mg tablet 300 mg PO DAILY 12/06/23 12/06/23 History pantoprazole 40 mg tablet,delayed 40 mg PO DAILY 12/06/23 12/06/23 History release rosuvastatin 10 mg tablet 10 mg PO HS 12/06/23 12/06/23 History sildenafil 50 mg tablet 50 mg PO DAILY PRN .erectile 12/06/23 12/06/23 History disfunction Past Med/Surg History Problem List HERSON (acute kidney injury) (Acute) Junctional bradycardia (Acute) Acute hypotension (Acute) Acute alteration in mental status (Acute) Erectile dysfunction due to psychophysiologic disorder Hyperlipidemia ADHD GERD (gastroesophageal reflux disease) HTN (hypertension) (Acute) Medical History No pertinent family history Surgical History No pertinent past surgical history Family History Father Myocardial infarction Diabetes Hypertension Brother Prostate cancer Denies family history of Ovarian cancer Breast cancer Colorectal cancer Social History Smoking Status: Never smoker Second Hand Exposure: Yes; Hx Alcohol Use: No Hx Substance Use: No Preferred Language: Ghanaian Visual Impairment: Limited Hearing Ability: Normal Beliefs That Will Affect Care: None marital status: Current Living Situation: Family current occupational status: retired Feels Safe at Home: Yes Childhood Exposure to Second-Hand Smoke: Yes Dental Care, Regularly: Yes Physical Activity Frequency: Daily Seatbelt Use: always Sunscreen Use: No Review of Systems Review of Systems: All systems reviewed & are unremarkable except as noted in HPI & below Physical Exam Physical Exam: General: patient resting comfortably, NAD, non-toxic in appearance, AA&O x 4 Skin: warm, dry, intact, no rashes or lesions HEENT: NC/AT, PERRL, EOMI, anicteric sclera, conjunctiva without injection, external ear normal to inspection and nontender, nares patent, moist mucus membranes, dentition intact, no oropharyngeal lesions, neck supple, trachea midline, no LAD, no thyromegaly, no JVD Heart: +S1/S2, regular, no m/r/g Lungs: equal air entry bilaterally, no rales/rhonchi/wheezes Abd: +BS, soft, NT/ND, no masses/organomegaly/ascites Ext: warm, 2+ pulses in UE/LE bilaterally, no clubbing/cyanosis or edema Neuro: nonfocal, patient AA&O x 4, speech intact, no facial droop, moving all extremities on command with equal strength 5/5 Results & Data Results & Data Vital Signs (Past 12 Hours) Vital Signs Temp Pulse Pulse Resp BP BP Pulse Ox 12/06/23 23:43 60 19 122/74 95 12/06/23 22:45 67 19 108/61 93 12/06/23 22:30 60 16 108/73 94 12/06/23 22:15 67 14 107/71 97 12/06/23 22:00 59 L 17 108/62 94 12/06/23 21:45 62 20 116/67 94 12/06/23 21:30 62 24 125/72 95 12/06/23 21:15 61 127/77 12/06/23 21:10 121/67 12/06/23 21:09 57 L 20 119/68 95 12/06/23 21:09 119/68 12/06/23 20:45 59 L 123/74 12/06/23 20:41 50 L 12/06/23 20:40 92 12/06/23 20:39 49 L 79/56 L 12/06/23 20:30 83/51 L 12/06/23 20:24 36.7 C 61 19 94 O2 Del Method 12/06/23 23:43 Room Air 12/06/23 22:45 Room Air 12/06/23 22:30 Room Air 12/06/23 22:15 Room Air 12/06/23 22:00 Room Air 12/06/23 21:45 12/06/23 21:30 Room Air 12/06/23 21:15 12/06/23 21:10 12/06/23 21:09 12/06/23 21:09 12/06/23 20:45 12/06/23 20:41 12/06/23 20:40 Room Air 12/06/23 20:39 12/06/23 20:30 12/06/23 20:24 Room Air Laboratory Results Laboratory Results WBC 7.60 K/ul (4.8-10.8) 12/06/23 20:34 RBC 4.78 M/uL (4.70-6.10) 12/06/23 20:34 Hgb 15.8 g/dl (14.0-18.0) 12/06/23 20:34 POC Hgb 15.0 g/dl (14.0-18.0) 12/06/23 20:38 Hct 45.6 % (42.0-52.0) 12/06/23 20:34 POC Hct 44 % (42-52) 12/06/23 20:38 MCV 95.4 fL (80.0-100.0) 12/06/23 20:34 MCH 33.1 pg (25.0-34.0) 12/06/23 20:34 MCHC 34.6 g/dL (32.0-36.0) 12/06/23 20:34 RDW Std Deviation 42.5 fL (36.4-46.3) 12/06/23 20:34 RDW Coeff of Jaren 12.1 % (11.5-14.5) 12/06/23 20:34 Plt Count 280 K/uL (130-400) 12/06/23 20:34 MPV 11.7 fL (9.4-12.4) 12/06/23 20:34 Immature Gran % (Auto) 0.3 % 12/06/23 20:34 Neut % (Auto) 51.6 % 12/06/23 20:34 Lymph % (Auto) 32.8 % 12/06/23 20:34 Price % (Auto) 11.7 % 12/06/23 20:34 Eos % (Auto) 2.8 % 12/06/23 20:34 Baso % (Auto) 0.8 % 12/06/23 20:34 Neut # (Auto) 3.93 K/uL (1.40-6.50) 12/06/23 20:34 Lymph # (Auto) 2.49 K/uL (1.20-3.40) 12/06/23 20:34 Price # (Auto) 0.89 K/uL (0.11-0.59) H 12/06/23 20:34 Eos # (Auto) 0.21 K/uL (0.00-0.50) 12/06/23 20:34 Baso # (Auto) 0.06 K/uL (0.00-0.20) 12/06/23 20:34 Immature Gran # (Auto) 0.02 K/uL (0.01-0.20) 12/06/23 20:34 PT 10.3 Seconds (9.0-12.0) 12/06/23 20:34 INR 0.9 (0.9-1.1) 12/06/23 20:34 APTT 22 Seconds (21-31) 12/06/23 20:34 PTT Ratio 0.8 12/06/23 20:34 VBG pH 7.32 (7.36-7.41) L 12/06/23 21:38 VBG pCO2 48 mmHg (38-50) 12/06/23 21:38 VBG pO2 44 mmHg 12/06/23 21:38 VBG HCO3 25 mmol/L 12/06/23 21:38 VBG O2 Saturation 70.0 % 12/06/23 21:38 VBG Base Excess -1.8 mEq/L 12/06/23 21:38 POC Sodium 139 mmol/L (135-144) 12/06/23 20:38 Sodium 139 mmol/L (136-145) 12/06/23 20:34 POC Potassium 4.5 mmol/L (3.3-5.0) 12/06/23 20:38 Potassium 4.6 mmol/L (3.5-5.1) 12/06/23 20:34 POC Chloride 106 mmol/L (101-112) 12/06/23 20:38 Chloride 105 mmol/L (98-107) 12/06/23 20:34 Carbon Dioxide 24 mmol/L (21-32) 12/06/23 20:34 POC Total CO2 22 mmol/L (24-31) L 12/06/23 20:38 Anion Gap 10 (3-11) 12/06/23 20:34 POC Anion Gap 17.0 mmol/L (16-25) 12/06/23 20:38 POC BUN 23 mg/dl (7-18) H 12/06/23 20:38 BUN 25 mg/dl (6-23) H 12/06/23 20:34 Creatinine 1.41 mg/dl (0.6-1.4) H 12/06/23 20:34 POC Creatinine 1.5 mg/dl (0.6-1.3) H 12/06/23 20:38 Est Cr Clr Drug Dosing 55.2 ml/min 12/06/23 20:34 Est GFR ( Amer) 59.3 ml/min 12/06/23 20:34 Est GFR (Non-Af Amer) 51.2 ml/min 12/06/23 20:34 BUN/Creatinine Ratio 17.7 (10-20) 12/06/23 20:34 Glucose 94 mg/dl (70-99(Fasting)) 12/06/23 20:34 POC Glucose 90 mg/dl (70-99) 12/06/23 20:28 POC Glucose (other) 94 mg/dl (70-99) 12/06/23 20:38 Lactate 1.4 mmol/L (0.4-2.0) 12/06/23 22:18 Calcium 10.2 mg/dl (8.6-10.3) 12/06/23 20:34 POC Ioniz Calcium [place] 1.24 mmol/l (1.12-1.32) 12/06/23 20:38 Magnesium 2.2 mg/dl (1.7-2.4) 12/06/23 20:34 Total Bilirubin 0.3 mg/dl (0.2-1.0) 12/06/23 20:34 Direct Bilirubin TNP 12/06/23 20:34 AST 28 U/L (13-39) 12/06/23 20:34 ALT 18 U/L (7-52) 12/06/23 20:34 Alkaline Phosphatase 62 U/L (34-104) 12/06/23 20:34 Troponin I High Sens 8.0 pg/ml (0-20) 12/07/23 04:33 Total Protein 7.6 gm/dl (6.0-8.3) 12/06/23 20:34 Albumin 4.7 gm/dl (3.4-5.0) 12/06/23 20:34 Procalcitonin 0.06 ng/ml (0-0.5) 12/06/23 20:34 Random Cortisol 20.23 mcg/dl 12/06/23 21:38 Ethyl Alcohol mg/dL < 10.0 mg/dl (<10.0) 12/06/23 21:38 Blood Type A Positive 12/06/23 21:38 Antibody Screen NEGATIVE 12/06/23 21:38 Impressions Abdomen/Pelvis CT 12/06/23 20:43 Exam(s): CT ABDOMEN + PELVIS With Contrast IV Amt: 115 ml opti 320 EXAM: CT Abdomen and Pelvis With Intravenous Contrast CLINICAL HISTORY: low BP. TECHNIQUE: Axial computed tomography images of the abdomen and pelvis with intravenous contrast. CTDI is 27.86 mGy and DLP is 1387.11 mGy-cm. Automated exposure control was utilized for the study. A dose lowering technique was utilized adhering to the principles of ALARA. CONTRAST: Patient received 115 ml opti 320 of IV contrast COMPARISON: No relevant prior studies available. FINDINGS: Lung bases: For findings regarding the lung bases, please see the CTA report of the chest performed concurrently. No consolidation. ABDOMEN: Liver: Unremarkable. No mass. Gallbladder and bile ducts: Unremarkable. No calcified stones. No ductal dilation. Pancreas: Unremarkable. No mass. No ductal dilation. Spleen: Unremarkable. No splenomegaly. Adrenals: Unremarkable. No mass. Kidneys and ureters: Kidneys demonstrate normal enhancement. No hydronephrosis or nephrolithiasis. Cortical cysts are noted laterally and posteriorly involving the left mid to inferior pole with the largest cyst laterally measuring 3.1 x 3.8 cm. No definite internal solid components or complex features. No follow-up required. Stomach and bowel: Stomach is moderately to nearly completely distended with retained oral contents. No gastric mucosal thickening noted. No evidence for bowel obstruction. No definite asymmetric bowel mucosal abnormality. Retained fecal appearing material in nondilated distal small bowel loops noted in the pelvis. Mild stool burden. Diverticulosis noted involving the sigmoid colon. No obvious diverticulitis, accounting for limitations with mild respiratory artifact. PELVIS: Appendix: A normal caliber appendix is noted in the right lower quadrant. Bladder: Unremarkable. No mass. Reproductive: Unremarkable as visualized. ABDOMEN and PELVIS: Intraperitoneal space: Unremarkable. No free air. No significant fluid collection. Bones/joints: No acute fracture. No dislocation. Soft tissues: Unremarkable. Vasculature: Atherosclerotic calcification involving the aorta. No dissection or aneurysm. Atherosclerotic changes also noted involving the iliac arteries. Lymph nodes: Unremarkable. No enlarged lymph nodes. IMPRESSION: 1. No evidence for bowel obstruction. No definite asymmetric bowel mucosal abnormality. Retained fecal appearing material in nondilated distal small bowel loops noted in the pelvis is a nonspecific finding and is presumed normal variation. Mild enteritis with delayed transit through the small bowel is also a consideration. 2. Mild stool burden. Diverticulosis noted involving the sigmoid colon. No obvious diverticulitis, accounting for limitations with mild respiratory artifact. No free intraperitoneal fluid or pneumoperitoneum. Incidental normal caliber appendix. 3. Atherosclerotic calcification of the abdominal aorta. No dissection, significant aneurysm or acute retroperitoneal abnormality. 4. No acute osseous abnormality. Electronically signed by: Slim Dc MD 12/06/23 22:14 PM Chest CTA 12/06/23 20:43 Exam(s): CTA CHEST EXAM: CT Angiography Chest With Intravenous Contrast CLINICAL HISTORY: Evaluate for PE. TECHNIQUE: Axial computed tomographic angiography images of the chest with intravenous contrast. CTDI is 27.86 mGy and DLP is 1387.11 mGy-cm. Automated exposure control was utilized for the study. A dose lowering technique was utilized adhering to the principles of ALARA. MIP reconstructed images were created and reviewed. COMPARISON: CTA chest dated 10/16/2010 FINDINGS: Pulmonary arteries: Unremarkable. No pulmonary embolism. Aorta: The thoracic aorta is elongated and somewhat tortuous but is normal in caliber without evidence for aneurysm. No dissection. Lungs: No focal consolidation. No mass. Minimal dependent subsegmental atelectatic changes in the posterior lower lobes. Pleural space: Unremarkable. No significant effusion. No pneumothorax. Heart: The cardiac chambers are upper normal limits, stable from the previous examination. Mild prominence of the right ventricle is stable in appearance. Bones/joints: Multilevel degenerative changes involving the thoracic spine. Chronic anterior wedging noted involving T6-T8 levels. Multilevel degenerative changes with anterior hypertrophic osteophytes. No dislocation. Soft tissues: Unremarkable. Lymph nodes: Unremarkable. No enlarged lymph nodes. IMPRESSION: No pulmonary embolism. Electronically signed by: Slim Dc MD 12/06/23 22:[address] 12/06/23 20:43 Exam(s): CT HEAD Without Contrast EXAM: CT Head Without Intravenous Contrast CLINICAL HISTORY: low bp. TECHNIQUE: Axial computed tomography images of the head/brain without intravenous contrast. CTDI is 27.86 mGy and DLP is 1387.11 mGy-cm. Automated exposure control was utilized for the study. A dose lowering technique was utilized adhering to the principles of ALARA. COMPARISON: No relevant prior studies available. FINDINGS: Brain: No intracranial hemorrhage. No significant mass effect. No evidence for cortical infarct. Minimal periventricular deep white matter hypodense changes noted bilaterally. Ventricles: No midline shift or ventriculomegaly. Bones/joints: Unremarkable. No acute fracture. Soft tissues: Unremarkable. Sinuses: Unremarkable as visualized. No acute sinusitis. Mastoid air cells: Unremarkable as visualized. No mastoid effusion. IMPRESSION: No acute intracranial process identified. Electronically signed by: Slim Dc MD 12/06/23 22:39 PM Head CTA 12/06/23 20:43 Exam(s): CTA HEAD With Contrast IV Amt: 115 ml opti 320 EXAM: CT Angiography Head With Intravenous Contrast CLINICAL HISTORY: low BP. TECHNIQUE: Axial computed tomographic angiography images of the head with intravenous contrast. CTDI is 27.86 mGy and DLP is 1387.11 mGy-cm. Automated exposure control was utilized for the study. A dose lowering technique was utilized adhering to the principles of ALARA. MIP reconstructed images were created and reviewed. CONTRAST: Patient received 115 ml opti 320 of IV contrast COMPARISON: Noncontrast exam performed earlier FINDINGS: Right internal carotid artery: No acute findings. Intracranial segment is patent with no significant stenosis. No aneurysm. Right anterior cerebral artery: Unremarkable. No occlusion or significant stenosis. No aneurysm. Right middle cerebral artery: Unremarkable. No occlusion or significant stenosis. No aneurysm. Right posterior cerebral artery: Unremarkable. No occlusion or significant stenosis. No aneurysm. Right vertebral artery: Unremarkable as visualized. Left internal carotid artery: Moderate atherosclerotic calcification involving the mid to distal left cavernous internal carotid artery segment. No definite stenosis. The petrous and supraclinoid segments are patent. No aneurysm. Left anterior cerebral artery: Unremarkable. No occlusion or significant stenosis. No aneurysm. Left middle cerebral artery: Unremarkable. No occlusion or significant stenosis. No aneurysm. Left posterior cerebral artery: Unremarkable. No occlusion or significant stenosis. No aneurysm. Left vertebral artery: Unremarkable as visualized. Basilar artery: Unremarkable. No occlusion or significant stenosis. No aneurysm. Dural sinuses/cerebral veins: The dural sinuses are unremarkable. Brain: No abnormal parenchymal enhancement identified. IMPRESSION: Negative intracranial CTA examination. Electronically signed by: Slim Dc MD 12/06/23 22:48 PM Neck CTA 12/06/23 20:43 Exam(s): CTA NECK With Contrast IV Amt: 115 ml opti 320 EXAM: CT Angiography Neck With Intravenous Contrast CLINICAL HISTORY: low BP. TECHNIQUE: Routine carotid CT angiography protocol was performed with intravenous contrast. NASCET criteria using the distal ICAs for comparison were used for evaluation of stenoses. CTDI is 27.86 mGy and DLP is 1387.11 mGy-cm (single acquisition head and neck). Automated exposure control was utilized for the study. A dose lowering technique was utilized adhering to the principles of ALARA. MIP reconstructed images were created and reviewed. CONTRAST: Patient received 115 ml opti 320 of IV contrast (single dose for head and neck) COMPARISON: None. FINDINGS: VASCULATURE: Right common carotid artery: Mild intimal hyperplasia involving the right common carotid artery without significant narrowing. No dissection. Right internal carotid artery: Partially calcified atheromatous changes noted involving the proximal right internal carotid artery, extending to the carotid bifurcation. There is no significant narrowing by NASCET criteria. The distal right internal carotid artery is tortuous but is widely patent. No dissection. Right external carotid artery: Unremarkable. No occlusion. Right vertebral artery: Unremarkable. No occlusion or significant stenosis. No dissection. Left common carotid artery: Mild intimal hyperplasia involving the distal left common carotid artery without significant stenosis. No dissection. Left internal carotid artery: Partially calcified atherosclerotic disease involving the proximal left internal carotid artery, extending to the carotid bifurcation. No significant narrowing by NASCET criteria. The mid to distal left internal carotid artery is tortuous but is patent. No dissection. Left external carotid artery: Unremarkable. No occlusion. Left vertebral artery: Unremarkable. No occlusion or significant stenosis. No dissection. Brachiocephalic and subclavian arteries: There is a type II branching pattern of the proximal great vessels without significant ostial stenosis. Aorta: The aortic arch is tortuous but is patent without aneurysm or dissection. NECK: Bones/joints: Unremarkable. No acute fracture. Soft tissues: Unremarkable. Lung apices: Clear. CAROTID STENOSIS REFERENCE USING NASCET CRITERIA: % ICA stenosis = (1 - narrowest ICA diameter/diameter of distal cervical ICA) x 100. Mild - <50% stenosis. Moderate - 50-69% stenosis. Severe - 70-94% stenosis. Near occlusion - 95-99% stenosis. Occluded - 100% stenosis. IMPRESSION: 1. Atherosclerotic disease involving the carotid bifurcations without significant stenosis bilaterally. The common carotid and internal carotid arteries are otherwise patent. 2. The vertebral arteries are patent bilaterally without stenosis or occlusion. Electronically signed by: Slim Dc MD 12/06/23 23:02 PM ECG Additional Comments: Initial EKG with bradycardia, HR=43, sinus beats with ?junctional beats Code Status & VTE Plan VTE Prophylaxis Plan VTE Prophylaxis will be ordered: Yes PG Care Time/CCT Total # of Minutes Spent Total Time Spent with Patient: Total time spent is greater than 50% in coordination of care (as documented) at patient's floor/unit and/or counseling patient: Coding Level of Care Code 54082 INT INP/OBS CARE 2/55MIN Diagnoses Junctional bradycardia R00.1 Acute hypotension I95.9
[2023-12-07] MEDS ORDERED: POLYETHYLENE (MIRALAX) 17 GM PACK PO PRN (01:06)
[2023-12-07] MEDS ORDERED: ONDANSETRON INJ 2 MG/ML 2 ML VIAL IV PRN (01:06)
[2023-12-07] MEDS ORDERED: ACETAMINOPHEN 325 MG TAB PO PRN (01:06)
[2023-12-07] MEDS: ENOXAPARIN INJ 40 MG/0.4 ML SYR SQ SCH (06:11)
[2023-12-07 06:43] LABS: Appearance Urine Clear (Clear); Bilirubin Urine Negative (Negative); Blood Urine Negative (Negative); Color Urine Dark Yellow; Glucose Urine UA Negative (Negative); Ketones Urine Negative (Negative); Leukocyte Esterase Urine Negative (Negative); Nitrite Urine Negative (Negative); Protein Urine Negative (Negative); Specific Gravity Urine > 1.045 (1.000-1.030); Urobilinogen Urine Negative (Negative); pH Urine 5.5 (4.5-7.5)
--- NOTE | 2023-12-07 08:06 | XRay Report ---
SINGLE VIEW CHEST CLINICAL HISTORY: Sepsis FINDINGS: 2 AP, portable, upright chest radiographs are compared to study dated 03/10/2022. The exami nation is degraded by portable technique and apical lordotic positioning. The heart is enlarged. The pulmonary vasculature is noncongested. The lungs and pleural spaces are clear. No pneumothorax is see n. The skeletal structures are osteopenic. There are chronic/healed left-sided rib fractures. IMPRESSION: Cardiomegaly with no active disease in the chest. ACT 112: Negative or not required by law. Electronically signed by: Korey Tse M.D. 12/07/2023 8:04 AM
[2023-12-07] MEDS: DEXTROAMPHETAMINE/AMPHETAMINE ER 10 MG CAP PO SCH (08:13)
[2023-12-07] MEDS: LOSARTAN POTASSIUM 50 MG TAB PO SCH (08:13)
[2023-12-07] MEDS: PANTOprazole 40 MG TAB PO SCH (08:13)
[2023-12-07] MEDS: DOCUSATE SODIUM/SENNA 50/8.6MG TAB PO SCH (08:13)
--- NOTE | 2023-12-07 09:06 | Hospitalist Progress Note ---
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 Patient with episode of dizziness, hypotension and bradycardia. Symptomatic with dizziness and near syncope, visual changes had resolved but family provided information these have been preceding hospitalization for days to weeks Patient underwent treadmill echocardiography where he had marked changes and including a run of V. tach Cardiology consultation and referral for heart catheterization revealed a large first diagonal with ostial stenosis Started on aspirin continues on Crestor likely will be on guideline based medical therapy could include metoprolol and continue losartan Dual antiplatelet therapy will be at the discretion of cardiology for choice of additional agent to aspirin - Plan Hyperlipidemia - chronic. stabe -Continue Crestor GERD - chronic. stable -Continue Protonix Hypertension - chronic. stable -Continue Losartan - will hold if Cr worsens ADHD - chronic. stable -Continue Dextroamphetaminelikely recommend to discontinue this given coronary disease Code - Full Admission and Anticipated Discharge Date Admission Date: December 07, 2023 Subjective Patient was seen in the morning and on evaluation he said he had felt back to normal. His initial evaluation for low blood pressure and dizziness was inconclusive at the time of my initial eval including negative troponin testing and negative EKG Patient had significant CT examination including CT angiogram of the head CT of the head CT angiogram of the neck CT angiogram of the chest and abdomen pelvis CT. This did not show significant explanation or changes to corroborate his presenting symptomsthere were no signs of infection to warrant for sepsis, initial BUN and creatinine were mildly elevated, mild elevation of lactic acid which improved with hydration, he did not have significant acidemia regarding anion gap, VBG did show pH slightly decreased but bicarb and oxygen levels were normal. No leukocytosis no anemia TSH and cortisol levels were normal During the initial eval the patient said he felt back to normal and wanted to try to go home soon as possible if it was safe. At this point I am we made a decision to discharge him however his presented to the emergency department had questions providing additional history of recent persistent night sweats and some shortness of breath. At the time the family was considering if he should have a cardiac event monitor because of his bradycardia however given the newfound symptoms we pursued a stress echocardiogram which was markedly abnormal and patient was recommended cardiology evaluation eventual left heart cath and was recommended for admission. initial discharge orders were canceled Physical Exam Physical Exam: Patient had heart rate in the 60s He is awake alert and appropriate His cardiac exam sounds to be regular though no overt murmurs His lungs were clear without wheezes or crackles Abdomen was normal active bowel sounds without bruits Extremities are without edema Results & Data Results & Data Vital Signs (Past 12 Hours) Vital Signs Pulse Pulse Resp BP BP Pulse Ox O2 Del Method 12/07/23 06:57 49 L 12/07/23 03:00 52 L 16 131/81 96 12/07/23 01:57 52 L 19 97 Room Air 12/07/23 01:12 51 L 19 96 Room Air 12/07/23 01:08 53 L 19 109/61 98 Room Air 12/06/23 23:43 60 19 122/74 95 Room Air 12/06/23 22:45 67 19 108/61 93 Room Air 12/06/23 22:30 60 16 108/73 94 Room Air 12/06/23 22:15 67 14 107/71 97 Room Air 12/06/23 22:00 59 L 17 108/62 94 Room Air 12/06/23 21:45 62 20 116/67 94 12/06/23 21:30 62 24 125/72 95 Room Air 12/06/23 21:15 61 127/77 12/06/23 21:10 121/67 12/06/23 21:09 57 L 20 119/68 95 12/06/23 21:09 119/68 Laboratory Results Please see subjective portion for labs reviewed PG Care Time/CCT Total # of Minutes Spent Total Time Spent with Patient: Total time spent is greater than 50% in coordination of care (as documented) at patient's floor/unit and/or counseling patient: Coding Level of Care Code 90537 SUB INP/OBS CARE 3/50MIN Diagnoses Junctional bradycardia R00.1
--- OUTSIDE RECORDS SUMMARY | 2023-12-07 10:13 | External Medical Summary | Continuity of Care Document ---
Author Name Unknown Organization [facility] [address] [place] [address] [phone] Care Team Providers Care Intake Counselor Name Role Phone Kiah Braden Adelaide Primary Care Physician [phone] Encounter [facility] [id number] Date(s): 09/09/23 - 09/09/23 [facility] [address] [place] [phone] Encounter Diagnosis Body mass index [BMI] 29.0-29.9, adult(Discharge Diagnosis) - 09/09/23 LFT elevation(Discharge Diagnosis) - 09/09/23 HTN (hypertension)(Discharge Diagnosis) - 09/09/23 HLD (hyperlipidemia)(Discharge Diagnosis) - 09/09/23 GERD (gastroesophageal reflux disease)(Discharge Diagnosis) - 09/09/23 ED (erectile dysfunction)(Discharge Diagnosis) - 09/09/23 Discharge Disposition: Home or Self Care Attending Physician: MD Hadley Dongsheng Allergies, Adverse Reactions, Alerts No Known Medication Allergies Assessment and Plan Extracted from: Title:Office Visit Note Author:MD Hadley Dongsh eng Date:09/09/23 1.ED (erectile dysfunction ) STATUS: Chronic better DATA:labs reviewed GOAL: Reduce symptoms PLAN:continue viagra prn. 2.HTN (hypertension) STATUS: Chronic, h/o white coat HTN, stable DATA:reviewed labs GOAL: BP<140/90 PLAN:lisinopril - tickle throat - stopped. Irbesartan - continue. home BP advised. DASH and exercise. 3.HLD (hyperlipidemia) STATUS: Chronic stable: x Chronic uncontrolled: Acute uncomplicated: Acute illness with systemic symptoms: Undiagnosed new problems with uncertain prognosis: Chronic illnesses with exacerbation, progression, or side effects of treatment: 1 acute complicated injury: DATA: Review of prior external note(s) from each unique source: Review of the result(s) of each unique test: x Ordering of each unique test: Assessment requiring independent historian(s): GOAL: prevent ascvd PLAN:switchedzocor 40 to crestor 10mg - continue.Start CoQ10. 4.GERD (gastroesophageal reflux disease) STATUS: Chronic stable: Chronic uncontrolled: x Acute uncomplicated: Acute illness with systemic symptoms: Undiagnosed new problems with uncertain prognosis: Chronic illnesses with exacerbation, progression, or side effects of treatment: 1 acute complicated injury: DATA: Review of prior external note(s) from each unique source: Review of the result(s) of each unique test: Ordering of each unique test: x Assessment requiring independent historian(s): GOAL: Resolution PLAN: had EGD with Dr. Puckett. advised to f/u with GI. Has been on chronicPPI treatment. [id number] did nothelp much.switching backtopantoprazole. Diet modification sheet given - "I might not be compliant" . Stop alcohol.ordered B12, vit D, mag. 5.LFT elevation STATUS: Chronic stable: Chronic uncontrolled: Acute uncomplicated: Acute illness with systemic symptoms: Undiagnosed new problems with uncertain prognosis: x Chronic illnesses with exacerbation, progression, or side effects of treatment: 1 acute complicated injury: DATA: Review of prior external note(s) from each unique source: Review of the result(s) of each unique test: LFT Ordering of each unique test: x Assessment requiring independent historian(s): GOAL:Resolution PLAN: stop alcohol and NSAIDs. recheck ordered LFT call prn.f/u 3 mos Immunizations Given and Recorded Vaccine Date Status Refusal Reason tetanus/diphtheria/pertuss, acel (Tdap) 1 01/06/22 Recorded SARS-CoV-2 (COVID-19) mRNA-1273 vaccine 2 08/27/20 Recorded SARS-CoV-2 (COVID-19) mRNA-1273 vaccine 3 07/30/20 Recorded 1Result Comment: 2023-02-21: Historical information-source unspecified 2Result Comment: 2023-02-21: Historical information-source unspecified 3Result Comment: 2023-02-21: Historical information-source unspecified Medications Adderall 20 mg oral tablet Start: 03/04/23 9:06:00 AM EST, Refills: 0 Start Date: 03/04/23 Status: Ordered Arexvy preservative-free intramuscular injection Start: 03/04/23 9:34:00 AM EST, 0.5 mL, IM, ONCE, Disp# 0.5 mL, Note to Pharmacy: RSV vaccine, Pharmacy: [id number] Start Date: 03/04/23 Status: Ordered Coenzyme Q10 200 mg oral capsule Start: 05/30/23 10:28:00 AM EST, See Instructions, Disp# 30 cap, 1 tab PO Daily, other Start Date: 05/30/23 Status: Ordered Crestor 10 mg oral tablet Start: 05/30/23 10:25:00 AM EST, 1 tab, PO, qhs, Disp# 90 tab, Refills: 3, Pharmacy: [facility] Start Date: 05/30/23 Stop Date: 05/24/24 Status: Ordered irbesartan 300 mg oral tablet Start: 05/30/23 10:37:00 AM EST, 1 tab, PO, Daily, Disp# 30 tab, Refills: 5, Pharmacy: [facility] Start Date: 05/30/23 Stop Date: 11/26/23 Status: Ordered pantoprazole 40 mg oral delayed release tablet Start: 09/09/23 9:35:00 AM EDT, 1 tab, PO, Daily, Disp# 90 tab, Pharmacy: [facility] Start Date: 09/09/23 Stop Date: 12/08/23 Status: Ordered sildenafil 50 mg oral tablet Start: 09/09/23 9:39:00 AM EDT, 1 tab, PO, Daily, Disp# 30 tab, Refills: 2, 1 hour before sexual activity may try half a pill, PRN: as needed for erectile dysfunction, Pharmacy: [facility] Start Date: 09/09/23 Status: Ordered Vitamin D3 2000 intl units (50 mcg) oral tablet Start: 03/04/23 9:27:00 AM EST, 1 tab, PO, Daily, Disp# 30 tab, other Start Date: 03/04/23 Status: Ordered Mental Status 09/09/23 Barriers to Learning one year None evide nt Mandatory Health Literacy Documentation Yes Health Literacy Communication Barriers N ever Primary Language Kyrgyz Problem List Condition Confirmation Course Effective Dates Status Health St atus Informant ADHD Confirmed Active Back pain Confirmed Active ED (erectile dysfunction) Confirmed Active GERD (gastroesophageal reflux disease) Confirmed Active Hx of pulmonary embolus Confirmed Active HLD (hyperlipidemia) Confirmed Active HTN (hypertension) Confirmed Active IFG (impaired fasting glucose) Confirmed Active Insomnia Confirmed Active Knee pain Confirmed Active Low back pain Confirmed Active Neck pain Confirmed Active Tinnitus Confirmed Active Diagnosis Diagnosis Type Effective Dates Health Status Cl inical Service Informant HTN (hypertension) Discharge Diagnosis 09/09/23 Non-Specified HLD (hyperlipidemia) Discharge Diagnosis 09/09/23 Non-Specified GERD (gastroesophagea l reflux disease) Discharge Diagnosis 09/09/23 Non-Specified ED (erectile dysfunction) Discharge Diagnosis 09/09/23 Non-Specified Body mass index [BMI] 29.0-29.9, adult Discharge Diagnosis 09/09/23 Non-Specified LFT elevation Discharge Diagnosis 09/09/23 Non-Specified Procedures Procedure Date Related Diagnosis Body Site Status Finger Completed Kidney stone Completed Knee Completed Vital Signs Most recent to oldest [Reference Range]: 1 Height 172.5 cm (09/09/23 9:23 AM) Patient Weight 89 kg (09/09/23 9:23 AM) Body Mass Index 29.91 kg/m2 (09/09/23 9:23 AM) Heart Rate 53 bpm (09/09/23 9:23 AM) Respiratory Rate 12 br/min (09/09/23 9:23 AM) Blood Pressure 138/88mmHg (09/09/23 9:23 AM) Cuff Pulse Pressure 50 mmHg (09/09/23 9:23 AM) Social History Social History Type Response Smoking Status Never smoked cigaret francois Sex Male FCM Outpt Note * MD Jomar, Rai: PERFORM Event Display: FCM Outpt Note Authored Date: Chief Complaint 3 nmonth F/U History of Present Illness HTN: on med. home BP - not checking. no dizzy HLD: on statin. muscle ache feels better. ADHD: on med 3-4x/wk. stable. GERD: for years. famotidine is less effective thanpantoprazole alcohol: 2-3 a day 4-5 days a wk. taking Aleve intermittently for neck pain. Review of Systems No fever/chills. No headache. Norespiratory symptoms. No chest pain/shortness of breath. No nausea/vomiting. No abdominal pain. No change with bowels. No urinary symptoms. Other systems reviewed and are neg. Physical Exam Vitals & Measurements HR:53(Monitored) RR:12 BP:138/88 SpO2:96% HT:172.5cm WT:89.000kg(Dosing) WT:89kg BMI:29.91 PHQ2 Data(Data Documented on:09/09/2023 09:23) Emotional health assessment NEGATIVE General: No acute distress. Nontoxic. Neck:Supple, Non-tender, No thyromegaly, No jugular venous distention, No lymphadenopathy Respiratory:Lungs are clear to auscultation, Respirations non-labored, Breath sounds equal MIRNA. Cardiovascular:Normal rate, Regular rhythm, No murmur, Rubs, gallops. Gastrointestinal:Soft, Non-tender, Non-distended, Normal bowel sounds. Musculoskeletal:no pitting edema Neurologic:Alert, Oriented, No focal deficits. Psychiatric:Cooperative, Appropriate mood & affect. Assessment/Plan 1.ED (erectile dysfunction) STATUS: Chronic better DATA:labs reviewed GOAL: Reduce symptoms PLAN:continue viagra prn. 2.HTN (hypertension) STATUS: Chronic, h/o white coat HTN, stable DATA:reviewed labs GOAL: BP<140/90 PLAN:lisinopril - tickle throat - stopped. Irbesartan - continue. home BP advised. DASH and exercise. 3.HLD (hyperlipidemia) STATUS: Chronic stable: x Chronic uncontrolled: Acute uncomplicated: Acute illness with systemic symptoms: Undiagnosed new problems with uncertain prognosis: Chronic illnesses with exacerbation, progression, or side effects of treatment: 1 acute complicated injury: DATA: Review of prior external note(s) from each unique source: Review of the result(s) of each unique test: x Ordering of each unique test: Assessment requiring independent historian(s): GOAL: prevent ascvd PLAN:switchedzocor 40 to crestor 10mg - continue.Start CoQ10. 4.GERD (gastroesophageal reflux disease) STATUS: Chronic stable: Chronic uncontrolled: x Acute uncomplicated: Acute illness with systemic symptoms: Undiagnosed new problems with uncertain prognosis: Chronic illnesses with exacerbation, progression, or side effects of treatment: 1 acute complicated injury: DATA: Review of prior external note(s) from each unique source: Review of the result(s) of each unique test: Ordering of each unique test: x Assessment requiring independent historian(s): GOAL: Resolution PLAN: had EGD with Dr. Puckett. advised to f/u with GI. Has been on chronicPPI treatment. [id number] did nothelp much.switching backtopantoprazole. Diet modification sheet given - "Imight not be compliant". Stop alcohol.ordered B12, vit D, mag. 5.LFT elevation STATUS: Chronic stable: Chronic uncontrolled: Acute uncomplicated: Acute illness with systemic symptoms: Undiagnosed new problems with uncertain prognosis: x Chronic illnesses with exacerbation, progression, or side effects of treatment: 1 acute complicated injury: DATA: Review of prior external note(s) from each unique source: Review of the result(s) of each unique test: LFT Ordering of each unique test: x Assessment requiring independent historian(s): GOAL:Resolution PLAN: stop alcohol and NSAIDs. recheck ordered LFT call prn.f/u 3 mos Problem List/Past Medical History Ongoing ADHD Back pain ED (erectile dysfunction) GERD (gastroesophageal reflux disease) HLD (hyperlipidemia) HTN (hypertension) Hx of pulmonary embolus IFG (impaired fasting glucose) Insomnia Knee pain Low back pain Neck pain Tinnitus Procedure/Surgical History Kidney stoneFingerKnee Medications amphetamine-dextroamphetamine(Adderall 20 mg oral tablet) cholecalciferol(Vitamin D3 2000 intl units (50 mcg) oral tablet), 2000 Int_Unit= 1 tab, PO, Daily irbesartan(irbesartan 300 mg oral tablet), 300 mg= 1 tab, PO, Daily, 5 refills pantoprazole(pantoprazole 40 mg oral delayed release tablet), 40 mg= 1 tab, PO, Daily rosuvastatin(Crestor 10 mg oral tablet), 10 mg= 1 tab, PO, qhs, 3 refills RSV vaccine preF3, recombinant(Arexvy preservative-free intramuscular injection), 60 mcg= 0.5 mL, IM, ONCE sildenafil(sildenafil 50 mg oral tablet), 50 mg= 1 tab, PO, Daily, PRN, 2 refills ubiquinone(Coenzyme Q10 200 mg oral capsule), See Instructions Allergies No Known Medication Allergies Social History Smoking Status Never smoked cigarettes Alcohol - Low Risk Substance Abuse - Low Risk Tobacco - Denies Tobacco Use Family History Heart attack: Father. Heart disease: Father. Health Status Family Member(s) Mother: History is negative Immunizations Vaccine Date Status tetanus/diphtheria/pertuss, acel (Tdap) 01/06/2022 Recorded Comments : 2023-02-21: Historical information-source unspecified SARS-CoV-2 (COVID-19) mRNA-1273 vaccine 08/27/2020 Recorded Comments : 2023-02-21: Historical information-source unspecified SARS-CoV-2 (COVID-19) mRNA-1273 vaccine 07/30/2020 Recorded Comments : 2023-02-21: Historical information-source unspecified Recommendations Health Maintenance Pending(in the next year) OverDue Adult Influenza Vaccine due10/08/22and every 1year Due Adult COVID-19 Vaccination due09/09/23Unknown Frequency Adult Social Determinants of Health Screening due09/09/23Unknown Frequency Colorectal Cancer Screening due09/09/23Unknown Frequency Hepatitis C Screening due09/09/23One-time only Pneumococcal Vaccine Older Adults due09/09/23One-time only Shingles Vaccine due09/09/23One-time only Satisfied(in the past 1 year) Satisfied Body Mass Index on09/09/23.Satisfied by Corneal, RESAWYER, Heri Lipid Screening on03/15/23.Satisfied by Contributor_system, [facility] Electronic Signature on File Electronically Reviewed/Signed by: Rai Hadley MD Author Signature Dt/Tm:09/09/2023 09:45 AM Department of Family Medicine [facility] Patient Care team information Care Team Personnel Name: DO Braden Michelle N Position: Referring Member Role: Primary Care Provider Address: Address: [address] [place] [address], [place] [address] [place] Care Team Related Persons Name: ANU ESPINO Address: home [address] [place] [phone]
--- OUTSIDE RECORDS SUMMARY | 2023-12-07 10:13 | External Medical Summary | Continuity of Care Document ---
Author Name Unknown Organization [facility] [address] [place] [address] [phone] Care Team Providers Care Rehabilitation Case Coordinator Name Role Phone Kiah Braden Adelaide Primary Care Physician [phone] Encounter [facility] [id number] Date(s): 08/22/23 - 08/22/23 [facility] [address] [place] [address] [facility] [address] [place] [phone] Encounter Diagnosis Hyperlipidemia, unspecified(Final) - Body mass index [BMI] 29.0-29.9, adult(Final) - Dorsalgia, unspecified(Final) - Impaired fasting glucose(Final) - Discharge Disposition: Home or Self Care Attending Physician: MD Jomar, Rai Allergies, Adverse Reactions, Alerts No Known Medication Allergies Immunizations Given and Recorded Vaccine Date Status [...] mL, Note to Pharmacy: RSV vaccine, [id number] Start Date: 03/04/23 Status: Ordered Coenzyme Q10 200 mg oral capsule Start: 05/30/23 10:28:00 AM EST, See Instructions, Disp# 30 cap, 1 tab PO Daily, other Start Date: 05/30/23 Status: Ordered Crestor 10 mg oral tablet Start: 05/30/23 10:25:00 AM EST, 1 tab, PO, qhs, Disp# 90 tab, Refills: 3, Pharmacy: [id number] Start Date: 05/30/23 Stop Date: 05/24/24 Status: Ordered irbesartan 300 mg oral tablet Start: 05/30/23 10:37:00 AM EST, 1 tab, PO, Daily, Disp# 30 tab, Refills: 5, Pharmacy: [id number] Start Date: 05/30/23 Stop Date: 11/26/23 Status: Ordered Pepcid 40 mg oral tablet Start: 05/30/23 10:18:00 AM EST, 1 tab, PO, Daily, Disp# 30 tab, Refills: 3, Pharmacy: [id number] Start Date: 05/30/23 Stop Date: 09/27/23 Status: Ordered sildenafil 50 mg oral tablet Start: 05/30/23 10:14:00 AM EST, 1 tab, PO, Daily, Disp# 20 tab, Refills: 2, 1 hour before sexual activity may try half a pill, PRN: as needed for erectile dysfunction, Pharmacy: [id number] Start Date: 05/30/23 Status: Ordered Vitamin D3 2000 intl units (50 mcg) oral tablet Start: 03/04/23 9:27:00 AM EST, 1 tab, PO, Daily, Disp# 30 tab, other Start Date: 03/04/23 Status: Ordered Problem List Condition Confirmation Course Effective Dates [...] Neck pain Confirmed Active Tinnitus Confirmed Active Procedures Procedure Date Related Diagnosis Body Site Status Finger Completed Kidney stone Completed Knee Completed Results Laboratory List Name Date Creatine Kinase, Total (CK) 08/22/23 Hemoglobin A1C (HEMOGLOBIN, A1C) 08/22/23 Hepatic Function Panel (HEPATIC FUNCT PA YUMI) 08/22/23 Most recent to oldest [Reference Range]: 1 Estimated Average Glucose 105 mg/dL (08/22/23 9:48 AM) Alb [3.5-5.0 g/dL] 4.0 g/dL (08/22/23 9:48 AM) Alk Phos [38-126 unit/L] 55 unit/L (08/22/23 9:48 AM) ALT [<50 unit/L] 30 unit/L (08/22/23 9:48 AM) AST [15-46 unit/L] 74 unit/L *HI* (08/22/23 9:48 AM) CPK [39-308 unit/L] 87 unit/L (08/22/23 9:48 AM) D Bili [0.0-0.6 mg/dL] 0.2 mg/dL (08/22/23 9:48 AM) HbA1c [<5.7 %] 5.3 % 1 (08/22/23 9:48 AM) T Bili [0.2-1.3 mg/dL] 1.0 mg/dL (08/22/23 9:48 AM) Prot [6.3-8.2 g/dL] 7.2 g/dL 2 (08/22/23 9:48 AM) 1Result Comment: ADA Recommended [place] Reference Range: Normal: <5.7% Prediabetes: 5.7-6.4% Diabetes: >6.4% 2Result Comment: Testing Performed By: Dept of Pathology [facility] Rudy Quan, [facility] [place] [place] [address] Social History Social History Type Response Smoking Status Never smoked cigaret francois Sex Male Patient Care team information Care Team Personnel Name: DO Braden Michelle N Position: Referring Member Role: Primary Care Provider Address: Address: [address] [place] [address], [place] [address] [place] Care Team Related Persons Name: ANU ESPINO Address: home [address] [facility], [place] [phone]
--- OUTSIDE RECORDS SUMMARY | 2023-12-07 10:13 | External Medical Summary | Continuity of Care Document ---
Author Name Unknown Organization [facility] [address] [place] [phone] Care Team Providers Care Physician/Internist Name Role Phone Sampson Kiah Adelaide Primary Care Physician [phone] Encounter [facility] [id number] Date(s): 11/29/23 - 11/29/23 [facility] [address] [place] [address] [place] [phone] Encounter Diagnosis Other specified abnormal findings of blood chemistry(Final) - Gastro-esophageal reflux disease without esophagitis(Final) - Discharge Disposition: Home or Self Care Attending Physician: MD Jomar, Rai Referring Physician: MD Hadley Dongsheng Allergies, Adverse Reactions, [...] mL, Note to Pharmacy: RSV vaccine, Pharmacy: [id number] Start Date: 03/04/23 Status: Ordered Coenzyme Q10 200 mg oral capsule Start: 05/30/23 10:28:00 AM EST, See Instructions, Disp# 30 cap, 1 tab PO Daily, other Start Date: 05/30/23 Status: Ordered Crestor 10 mg oral tablet Start: 05/30/23 10:25:00 AM EST, 1 tab, PO, qhs, Disp# 90 tab, Refills: 3, Pharmacy: [id number] Start Date: 05/30/23 Stop Date: 05/24/24 Status: Ordered irbesartan 300 mg oral tablet Start: 05/30/23 10:37:00 AM EST, 1 tab, PO, Daily, Disp# 30 tab, Refills: 5, Pharmacy: [facility] Start Date: 05/30/23 Stop Date: 11/26/23 Status: Ordered pantoprazole 40 mg oral delayed release tablet Start: 09/09/23 9:35:00 AM EDT, 1 tab, PO, Daily, Disp# 90 tab, Pharmacy: [facility] Start Date: 09/09/23 Stop Date: 12/08/23 Status: Ordered sildenafil 50 mg oral tablet Start: 09/09/23 9:39:00 AM EDT, 1 tab, PO, Daily, Disp# 30 tab, Refills: 2, 1 hour before sexual activity may try half a pill, PRN: as needed for erectile dysfunction, Pharmacy: [id number] Start Date: 09/09/23 Status: Ordered Vitamin D3 [...] Finger Completed Kidney stone Completed Knee Completed Social History Social History Type Response Smoking Status Never smoked cigaret francois Sex Male Sex Representation Male (finding) Patient Care team information Care Team Personnel Name: DO Braden Michelle N Position: Referring Member Role: Primary Care Provider Address: [address] [place] [address], [place] [address] [place] Care Team Related Persons Name: ANU ESPINO
[2023-12-07 10:14] LABS: Thyroid Stimulating Hormone 1.067 uIu/ml (0.300-4.500)
--- NOTE | 2023-12-07 15:12 | Cardiology Consultation ---
Date of Consultation December 07, 2023 Assessment & Plan (1) Abnormal stress echo: (2) Ventricular tachycardia: (3) Junctional bradycardia: (4) Acute hypotension: (5) Hyperlipidemia: (6) HTN (hypertension): (7) Dyspnea on exertion: Plan ASSESSMENT/PLAN: 1. Abnormal stress echo: Recommend cardiac catheterization given decreased exercise tolerance and presenting symptoms. Risk and benefits were discussed with he and his in detail. They were made aware that CT surgery is not available at this facility. He was agreeable to proceed. He has been n.p.o. since this morning. Aspirin 324 mg x 1 ordered. Procedure was discussed in detail. 2. Ventricular tachycardia: Occurred with exercise. Possibly due to ischemia. Plan as above. No beta-christiane given junctional bradycardia on presentation. 3. Junctional bradycardia: Possibly vagal given diaphoresis on presentation. Recommend monitor on discharge. 4. Acute hypotension: Possibly vagal as above. Responded well to IV fluids. Blood pressure reasonable now. 5. Dyslipidemia: Continue statin therapy. Given atherosclerosis noted on CT imaging, recommend high intensity statin therapy. 6. Hypertension: History of hypertension and treated at home. Blood pressure here has been well-controlled since initially found to be hypotensive which corrected with IV fluids. 7. Dyspnea on exertion: No etiology noted on CT imaging of the chest. He appears euvolemic. Concerning for ischemic heart disease as above. Cardiac catheterization recommended. 8. Disposition: Plan of care discussed with Dr. Collins of the primary hospitalist service. Patient and his were made aware that cardiac ca theterization may occur today or tomorrow depending on lab availability. They expressed understanding. Highly complex medical issues. Thank you for allowing me to participate in the care of your patient. Please call for any other questions or concerns. Sincerely, Oswaldo Anand M.D. History of Present Illness Reason for Consultation: abnormal stress echo Requesting Physician: Jam Collins MD Attending Physician: Jam Collins MD History of Present Illness Mr. Gee is a 68-year-old gentleman with history significant for hypertension, dyslipidemia, and ADHD. He was admitted on 12/07/2023 with sudden diaphoresis, visual changes, and dizziness. His is a PA and helped provide much of the history. She states that while they were sitting down to eat, the symptoms began and she was unable to palpate a pulse. They were unable to register her blood pressure while in triage in the ER and when able, he was hypotensive and in junctional bradyc ardia. He improved with IV fluids. He initially stated that he has not been experiencing any chest pain or shortness of breath. After further questioning, he admits that he walks 2 to 6 miles most days of the week and more recently has noted that his breathing is not as good and his exercise tolerance has declined but he denies any chest discomfort. His notes that at times when he is having symptoms of diaphoresis that he will grab his chest. He has been experiencing intermittent dizziness and diaphoresis with exertion for the past several weeks per his . He had recent dental implants and has been taking 600 mg of ibuprofen every 4-6 hours for the past few weeks. Blood pressure at home is typically systolic 130s and diastolic mid 80s. He denies melena, hematochezia, or hematuria. His stool was apparently heme-negative in the ER. He denies edema, syncope, palpitations. Stress test was ordered by primary hospitalist service and was terminated due to nonsustained ventricular tachycardia. He was also hypertensive and short of breath while exercising. Exercise stress echo staff reports that he was visibly quite dyspneic. He denies any chest pain. LAD wall motion abnormalities were noted on preliminary review of stress echo imaging. Images were reviewed with him. Review of systems: As above. Review of systems otherwise negative/unremarkable. Family history: Father at 67 with [place]. 4 older brothers without known CAD. Social history: Denies tobacco smoking. Consumes approximately 2 alcoholic beverages approximately 5 days/week. No biologic children. . His , Estella Ng, is a PA with psychiatry. They own several businesses, including [employer]. He owns [employer]. He was a former teacher. His was at the bedside. Allergies Allergy/AdvReac Type Severity Reaction Status Date / Time neomycin Allergy Unknown rash from Verified 12/06/23 23:53 topical ointment Penicillins Allergy Rash Verified 12/06/23 23:53 Home Medications Medication Instructions Recorded Confirmed Type cholecalciferol (vitamin D3) 25 25 mcg PO DAILY 12/06/23 12/06/23 History mcg (1,000 unit) tablet (Vitamin D3) coQ10 (ubiquinol) 100 mg capsule 0 mg PO DAILY 12/06/23 12/06/23 History dextroamphetamine-amphetamine ER 20 mg PO QAM 12/06/23 12/06/23 History 20 mg 24hr capsule,extend release irbesartan 300 mg tablet 300 mg PO DAILY 12/06/23 12/06/23 History pantoprazole 40 mg tablet,delayed 40 mg PO DAILY 12/06/23 12/06/23 History release rosuvastatin 10 mg tablet 10 mg PO HS 12/06/23 12/06/23 History sildenafil 50 mg tablet 50 mg PO DAILY PRN .erectile 12/06/23 12/06/23 History disfunction Patient History Medical History (Updated 12/07/23 @ 15:08 by Mahendra Anand MD) Hyperlipidemia ADHD GERD (gastroesophageal reflux disease) HTN (hypertension) Surgical History No pertinent past surgical history Family History Father Myocardial infarction Diabetes Hypertension Brother Prostate cancer Denies family history of Ovarian cancer Breast cancer Colorectal cancer Social History Smoking Status: Never smoker Second Hand Exposure: Yes; Hx Alcohol Use: No Hx Substance Use: No Preferred Language: [place] Visual Impairment: Limited Hearing Ability: Normal Beliefs That Will Affect Care: None marital status: Current Living Situation: Family current occupational status: retired Feels Safe at Home: Yes Childhood Exposure to Second-Hand Smoke: Yes Dental Care, Regularly: Yes Physical Activity Frequency: Daily Seatbelt Use: always Sunscreen Use: No Physical Exam Physical Exam: Gen.: No acute distress. Alert and oriented. HEENT: Anicteric sclera. Neck: No JVD. No bruits. Normal carotid upstrokes bilaterally. Cardiac: Regular. Normal S1-S2. No murmurs, rubs, or gallops. Pulmonary: Clear to auscultation bilaterally without wheezes, rales, or rhonchi. Abdomen: Soft, nontender, nondistended, with normoactive bowel sounds. No bruits noted. Extremities: 2+ radial pulses bilaterally. 2+ posterior tibialis pulses bilaterally. No edema or cyanosis. Results & Data Vital Signs (Past 12 Hours) Vital Signs Temp Pulse Pulse Resp BP BP Pulse Ox 12/07/23 10:55 36.7 C 52 L 16 109/61 93 12/07/23 09:09 54 L 16 12/07/23 08:30 52 L 16 12/07/23 08:00 48 L 15 130/79 93 12/07/23 07:42 51 L 18 94 12/07/23 07:09 48 L 17 94 12/07/23 06:57 49 L O2 Del Method 12/07/23 10:55 12/07/23 09:09 12/07/23 08:30 12/07/23 08:00 Room Air 12/07/23 07:42 12/07/23 07:09 12/07/23 06:57 Laboratory Results Laboratory Results - last 24 hr 12/06/23 12/06/23 12/06/23 20:28 20:34 20:38 WBC 7.60 RBC 4.78 Hgb 15.8 POC Hgb 15.0 Hct 45.6 POC Hct 44 MCV 95.4 MCH 33.1 MCHC 34.6 RDW Std Deviation 42.5 RDW Coeff of Jaren 12.1 Plt Count 280 MPV 11.7 Immature Gran % (Auto) 0.3 Neut % (Auto) 51.6 Lymph % (Auto) 32.8 [place] % (Auto) 11.7 Eos % (Auto) 2.8 Baso % (Auto) 0.8 Neut # (Auto) 3.93 Lymph # (Auto) 2.49 [place] # (Auto) 0.89 H Eos # (Auto) 0.21 Baso # (Auto) 0.06 Immature Gran # (Auto) 0.02 PT 10.3 INR 0.9 APTT 22 PTT Ratio 0.8 VBG pH VBG pCO2 VBG pO2 VBG HCO3 VBG O2 Saturation VBG Base Excess POC Sodium 139 Sodium 139 POC Potassium 4.5 Potassium 4.6 POC Chloride 106 Chloride 105 Carbon Dioxide 24 POC Total CO2 22 L Anion Gap 10 POC Anion Gap 17.0 POC BUN 23 H BUN 25 H Creatinine 1.41 H POC Creatinine 1.5 H Est Cr Clr Drug Dosing 55.2 Est GFR ( Amer) 59.3 Est GFR (Non-Af Amer) 51.2 BUN/Creatinine Ratio 17.7 Glucose 94 POC Glucose 90 POC Glucose (other) 94 Lactate 2.4 H* Calcium 10.2 POC Ioniz Calcium [place] 1.24 Magnesium 2.2 Total Bilirubin 0.3 Direct Bilirubin TNP AST 28 ALT 18 Alkaline Phosphatase 62 Troponin I High Sens 11.4 Total Protein 7.6 Albumin 4.7 Procalcitonin 0.06 TSH Random Cortisol Urine Color Urine Appearance Urine pH Ur Specific [place] Urine Protein Urine Glucose (UA) Urine Ketones Urine Blood Urine Nitrite Urine Bilirubin Urine Urobilinogen Ur Leukocyte Esterase Ethyl Alcohol mg/dL Lyme Disease Screen Pending Blood Type Antibody Screen 12/06/23 12/06/23 12/07/23 21:38 22:18 04:33 WBC RBC Hgb POC Hgb Hct POC Hct MCV MCH MCHC RDW Std Deviation RDW Coeff of Jaren Plt Count MPV Immature Gran % (Auto) Neut % (Auto) Lymph % (Auto) [place] % (Auto) Eos % (Auto) Baso % (Auto) Neut # (Auto) Lymph # (Auto) [place] # (Auto) Eos # (Auto) Baso # (Auto) Immature Gran # (Auto) PT INR APTT PTT Ratio VBG pH 7.32 L VBG pCO2 48 VBG pO2 44 VBG HCO3 25 VBG O2 Saturation 70.0 VBG Base Excess -1.8 POC Sodium Sodium POC Potassium Potassium POC Chloride Chloride Carbon Dioxide POC Total CO2 Anion Gap POC Anion Gap POC BUN BUN Creatinine POC Creatinine Est Cr Clr Drug Dosing Est GFR ( Amer) Est GFR (Non-Af Amer) BUN/Creatinine Ratio Glucose POC Glucose POC Glucose (other) Lactate 1.4 Calcium POC Ioniz Calcium [place] Magnesium Total Bilirubin Direct Bilirubin AST ALT Alkaline Phosphatase Troponin I High Sens 8.0 Total Protein Albumin Procalcitonin TSH 1.067 Random Cortisol 20.23 Urine Color Urine Appearance Urine pH Ur Specific [place] Urine Protein Urine Glucose (UA) Urine Ketones Urine Blood Urine Nitrite Urine Bilirubin Urine Urobilinogen Ur Leukocyte Esterase Ethyl Alcohol mg/dL < 10.0 Lyme Disease Screen Blood Type A Positive Antibody Screen NEGATIVE 12/07/23 06:15 WBC RBC Hgb POC Hgb Hct POC Hct MCV MCH MCHC RDW Std Deviation RDW Coeff of Jaren Plt Count MPV Immature Gran % (Auto) Neut % (Auto) Lymph % (Auto) [place] % (Auto) Eos % (Auto) Baso % (Auto) Neut # (Auto) Lymph # (Auto) [place] # (Auto) Eos # (Auto) Baso # (Auto) Immature Gran # (Auto) PT INR APTT PTT Ratio VBG pH VBG pCO2 VBG pO2 VBG HCO3 VBG O2 Saturation VBG Base Excess POC Sodium Sodium POC Potassium Potassium POC Chloride Chloride Carbon Dioxide POC Total CO2 Anion Gap POC Anion Gap POC BUN BUN Creatinine POC Creatinine Est Cr Clr Drug Dosing Est GFR ( Amer) Est GFR (Non-Af Amer) BUN/Creatinine Ratio Glucose POC Glucose POC Glucose (other) Lactate Calcium POC Ioniz Calcium [place] Magnesium Total Bilirubin Direct Bilirubin AST ALT Alkaline Phosphatase Troponin I High Sens Total Protein Albumin Procalcitonin TSH Random Cortisol Urine Color Dark Yellow Urine Appearance Clear Urine pH 5.5 Ur Specific [place] > 1.045 H Urine Protein Negative Urine Glucose (UA) Negative Urine Ketones Negative Urine Blood Negative Urine Nitrite Negative Urine Bilirubin Negative Urine Urobilinogen Negative Ur Leukocyte Esterase Negative Ethyl Alcohol mg/dL Lyme Disease Screen Blood Type Antibody Screen Diagnostic Findings Stress echo images personally reviewed. Formal review to follow. ECGs personally reviewed: ECG 820 11/01/2032: Sinus bradycardia with junctional bradycardia 43 bpm. ECG 12/06/20232114: Sinus 63 bpm. Nonspecific T wave abnormality. Neck CTA 12/06/2023: Atherosclerotic disease involving the carotid bifurcations without significant stenosis. Head CTA 12/06/2023: Negative per radiology. CTA chest 12/06/2023: No PE. CT abdomen/pelvis 12/06/2023: Atherosclerosis of the abdominal aorta. No dissection. Labs reviewed and notable for normal TSH, negative high-sensitivity troponin, mildly abnormal renal function on 12/06/2023, normal potassium, normal transaminase levels, blood counts. Medications Administered Current Inpatient Medications Acetaminophen (Acetaminophen 325 Mg Tab) 650 mg PO Q4H PRN PRN Reason: Pain or Fever Stop: 01/06/24 01:05 Amphetamine/Dextroamphetamine (Dextroamphetamine/Amphetamine Er 10 Mg Cap) 20 mg PO QAM LAURA Stop: 12/21/23 08:59 Last Admin: 12/07/23 08:13 Dose: Not Given Enoxaparin Sodium (Enoxaparin Inj 40 Mg/0.4 Ml Syr) 40 mg SQ Q24H LAURA Stop: 01/06/24 05:59 Last Admin: 12/07/23 06:11 Dose: 40 mg Losartan Potassium (Losartan Potassium 50 Mg Tab) 100 mg PO DAILY LAURA Stop: 01/06/24 08:59 Last Admin: 12/07/23 08:13 Dose: 100 mg Ondansetron HCl (Ondansetron Inj 2 Mg/Ml 2 Ml Vial) 4 mg IV Q6H PRN PRN Reason: Nausea And Vomiting Stop: 01/06/24 01:05 Pantoprazole Sodium (Pantoprazole 40 Mg Tab) 40 mg PO DAILY LAURA Stop: 01/06/24 08:59 Last Admin: 12/07/23 08:13 Dose: 40 mg Polyethylene Glycol (Polyethylene (Miralax) 17 Gm Pack) 17 gm PO DAILY PRN PRN Reason: Constipation Stop: 01/06/24 01:05 Rosuvastatin Calcium (Rosuvastatin Calcium 10 Mg Tab) 10 mg PO HS [facility] Stop: 01/06/24 20:59 Senna/Docusate Sodium (Docusate Sodium/Senna 50/8.6mg Tab) 1 tab PO QAM LAURA Stop: 01/06/24 08:59 Last Admin: 12/07/23 08:13 Dose: 1 tab PG Care Time/CCT Total # of Minutes Spent Total Time Spent with Patient: Total time spent is greater than 50% in coordination of care (as documented) at patient's floor/unit and/or counseling patient: Coding Level of Care Code 31191 INT INP/OBS CARE 3/75MIN Diagnoses Abnormal stress echo R94.39 Ventricular tachycardia I47.20 Junctional bradycardia R00.1 Acute hypotension I95.9 Hyperlipidemia E78.5 HTN (hypertension) I10 Dyspnea on exertion R06.09
[2023-12-07] MEDS: ASPIRIN 81 MG CHEW ONE (15:15)
[2023-12-07] MEDS: ASPIRIN 325 MG ECTAB PO SCH (15:57)
[2023-12-07] MEDS: ASPIRIN 81 MG ECTAB PO SCH (16:00)
--- NOTE | 2023-12-07 16:17 | Pre Anesthesia Assessment ---
Date of Service December 07, 2023 Pre Sedation Assessment Vital Signs Temp Pulse Pulse Resp BP BP Pulse Ox 12/07/23 15:27 55 L 12/07/23 10:55 36.7 C 52 L 16 109/61 93 12/07/23 09:09 54 L 16 12/07/23 08:30 52 L 16 12/07/23 08:00 48 L 15 130/79 93 12/07/23 07:42 51 L 18 94 12/07/23 07:09 48 L 17 94 12/07/23 06:57 49 L 12/07/23 03:00 52 L 16 131/81 96 12/07/23 01:57 52 L 19 97 12/07/23 01:12 51 L 19 96 12/07/23 01:08 53 L 19 109/61 98 12/06/23 23:43 60 19 122/74 95 12/06/23 22:45 67 19 108/61 93 12/06/23 22:30 60 16 108/73 94 12/06/23 22:15 67 14 107/71 97 12/06/23 22:00 59 L 17 108/62 94 12/06/23 21:45 62 20 116/67 94 12/06/23 21:30 62 24 125/72 95 12/06/23 21:15 61 127/77 12/06/23 21:10 121/67 12/06/23 21:09 57 L 20 119/68 95 12/06/23 21:09 119/68 12/06/23 20:45 59 L 123/74 12/06/23 20:41 50 L 12/06/23 20:40 92 12/06/23 20:39 49 L 79/56 L 12/06/23 20:30 83/51 L 12/06/23 20:24 36.7 C 61 19 94 O2 Del Method 12/07/23 15:27 12/07/23 10:55 12/07/23 09:09 12/07/23 08:30 12/07/23 08:00 Room Air 12/07/23 07:42 12/07/23 07:09 12/07/23 06:57 12/07/23 03:00 12/07/23 01:57 Room Air 12/07/23 01:12 Room Air 12/07/23 01:08 Room Air 12/06/23 23:43 Room Air 12/06/23 22:45 Room Air 12/06/23 22:30 Room Air 12/06/23 22:15 Room Air 12/06/23 22:00 Room Air 12/06/23 21:45 12/06/23 21:30 Room Air 12/06/23 21:15 12/06/23 21:10 12/06/23 21:09 12/06/23 21:09 12/06/23 20:45 12/06/23 20:41 12/06/23 20:40 Room Air 12/06/23 20:39 12/06/23 20:30 12/06/23 20:24 Room Air Cardiovascular + bradycardic Respiratory normal respiratory effort, lungs clear to auscultation Pre-Sedation Airway Assessment Smoking Status: Never smoker Mallampati Class: II ASA: ASA3 NPO Status Date of Last Intake of Fluids: 12/07/23 Time of Last Intake of Fluids: 09:00 Date of Last Intake of Solid Food: 12/07/23 Time of Last Intake of Solid Foods: 09:00 Procedure Planning Contraindications for Sedation: none Current Medications Reviewed: Yes Notes The planned sedation has been discussed with the patient. Informed Consent was obtained. I have identified the patient, determined the appropriateness of sedation and have assessed the patient immediately prior to the procedure. All medicine(s) and interventions are by my order.
--- NOTE | 2023-12-07 16:33 | XCELERA ---
[id number]
[2023-12-07 16:47] LABS: BUN Creatinine Ratio 20.9 (10-20); Creatinine Clr Calc Pharmacy 93.2 ml/min; Est GFR (Non-African American) 89.7 ml/min; Potassium 4.2 mmol/L (3.5-5.1)
[2023-12-07] MEDS: niCARdipine HCL INJ 2.5 MG/ML 10 ML AMP ONE (16:54)
[2023-12-07] MEDS: NITROGLYCERIN/D5W 100MCG/ML 20ML SYR ONE (16:54)
[2023-12-07] MEDS: MIDAZOLAM HCL 1 MG/ML 2ML VIAL ONE ×3 (16:57→18:15)
--- NOTE | 2023-12-07 17:34 | Cardiac Catheterization ---
[facility] Data: Ornamental [employer] Cardiac Status Clinical evaluation leading to the procedure CAD Presenation: Positive Stress Test and Unstable angina Anginal Classification: CCS IV Heart Failure: No Cardiogenic Shock within 24 Hours: No Cardiac Arrest within 24 Hours: No Imaging Studies Past 6 Months: Yes Stress Studies Past 6 Months: Yes Standard Exercise Test: Yes - Negative and Yes - Positive Stress Echocardiogram: Yes - Positive and Risk/Extent of Ischemia (Intermediate) Coronary Anatomy Dominant: Right Diagnostic Physicians Name: Mahendra Anand MD Status: Elective Closure Device Percutaneous Entry Location: Radial Recommendations: PCI without planned CABG Cardiac Cath Procedure Full Procedure Date December 07, 2023 Pre-Procedure Diagnosis Pre-Procedure Diagnosis: Positive Stress Test and Arrhythmia AUC Score AUC Score: 7 Post-Procedure Diagnosis Post-Procedure Diagnosis: Severe CAD and Normal Intracardiac Pressures Procedure(s) Performed Procedure(s) Performed: Coronary Angiography and Left Heart Cath Automotive Painter Mahendra Anand MD Matcher Offbearer(s) Deibler Estimated Blood Loss Estimated Blood Loss: < 20 ml Medication(s) Medication(s): Fentanyl, Heparin, Lidocaine 1%, Nicardipine and Versed Summary of Findings Procedures: 1. Coronary angiography 2. Left heart catheterization 3. Moderate sedation Indication: Mr. Gee is a 68-year-old gentleman who presented with diaphoresis, hypotension, and junctional bradycardia. He has been experiencing decreased exercise tolerance and dyspnea on exertion as well as diaphoresis with exertion but denies chest pain. Stress echo demonstrated hypokinesis of the lateral wall and apex following exercise and exercise was terminated due to ventricular tachycardia. He also had a hypertensive response and poor exercise tolerance. Coronary angiography: 1. Left main: Large caliber but short. No significant CAD. 2. Left anterior descending: Large-caliber vessel. Mid LAD approximately 40% at bifurcation of D1. Late mid LAD 20-30%. JAQUELINE-3 flow. Very large caliber D1 with ostial 90%. JAQUELINE-3 flow. 3. Circumflex: Large-caliber vessel proximally that extends distally in the AV groove as a small caliber vessel. Ostial/proximal circumflex 20-30% smooth narrowing. Medium caliber OM1 with proximal luminal irregularities. Very large caliber OM 2 vessel. 4. Right coronary artery: RCA is large and dominant. Luminal irregularities throughout the proximal, mid, and distal portions of the RCA. PDA and PL without significant CAD. Left heart catheterization: 1. Left ventriculography was not performed. 2. No aortic stenosis. Peak to peak gradient across the aortic valve < 5 mmHg. 3. LVEDP 10 mmHg. Moderate sedation: 1. Sedation start time: 4:42 PM 2. Sedation end time: 5:04 PM Right radial artery angiography: 1. Approximately 70% stenosis in the right radial artery, which was able to be crossed with Glidewire and 6 Turkmen diagnostic catheters, without resistance. Impression: 1. Severe CAD involving large ostial D1. 2. Otherwise nonobstructive CAD. 3. No aortic stenosis. 4. Normal left-sided filling pressure. Plan: 1. Images were reviewed with Dr. Newton of interventional cardiology. Given his presenting symptoms and exercise-induced ventricular tachycardia, decision was made to proceed with PCI attempt of ostial diagonal. 2. Risk factor modification. Hemodynamics Rest Ao:: 167/89 Final Ao: 163/81 LV: 170//10 Recommendations Recommendations: PCI without planned CABG Specimens Specimens: None Radiation Exposure (mGy) 788 mGy. Fluoro time 3.4 min. Contrast (mls) 65 ml Procedural Complication(s) None Disposition remained in lab nurse for PCI attempt I attest to the content of the Intraoperative Record and any orders documented therein. Any exceptions are noted below. [facility] Card Cath Procedure Codes Cardiac Catheterization Procedure 1: Cardiovascular Cath Procedures: 86933 Coronaries and LHC (+/-LV) Moderate Sedation Procedure 1: Sedation/Anesthesia: 68308 Mod Sedation by the same physician;Init15 Min Child Age 5 & Up Procedure 2: Sedation/Anesthesia: 02617 Mod Sedation by the same physician; Ea [id number] Minutes PG Care Time/CCT Total # of Minutes Spent Total Time Spent with Patient: Total time spent is greater than 50% in coordination of care (as documented) at patient's floor/unit and/or counseling patient:
[2023-12-07] MEDS: fentaNYL citrate PF 100 MCG/2 ML VIAL ONE ×2 (17:57→18:15)
[2023-12-07] MEDS: HEPARIN (PORCINE) 1000 UNIT/ML 10 ML (CATH LAB USE ONLY) ONE ×2 (17:57→17:58)
[2023-12-07] MEDS: TICAGRELOR 90 MG TAB ONE (18:15)
[2023-12-07] MEDS: OPTIRAY 350 ONE (18:16)
--- NOTE | 2023-12-07 18:33 | Post Anesthesia Assessment ---
Date of Service December 07, 2023 Post Sedation Assessment Vital Signs Temp Pulse Pulse Resp BP BP Pulse Ox 12/07/23 16:16 64 16 96 12/07/23 15:27 55 L 12/07/23 10:55 98.1 F 52 L 16 109/61 93 12/07/23 09:09 54 L 16 12/07/23 08:30 52 L 16 12/07/23 08:00 48 L 15 130/79 93 12/07/23 07:42 51 L 18 94 12/07/23 07:09 48 L 17 94 12/07/23 06:57 49 L 12/07/23 03:00 52 L 16 131/81 96 12/07/23 01:57 52 L 19 97 12/07/23 01:12 51 L 19 96 12/07/23 01:08 53 L 19 109/61 98 12/06/23 23:43 60 19 122/74 95 12/06/23 22:45 67 19 108/61 93 12/06/23 22:30 60 16 108/73 94 12/06/23 22:15 67 14 107/71 97 12/06/23 22:00 59 L 17 108/62 94 12/06/23 21:45 62 20 116/67 94 12/06/23 21:30 62 24 125/72 95 12/06/23 21:15 61 127/77 12/06/23 21:10 121/67 12/06/23 21:09 57 L 20 119/68 95 12/06/23 21:09 119/68 12/06/23 20:45 59 L 123/74 12/06/23 20:41 50 L 12/06/23 20:40 92 12/06/23 20:39 49 L 79/56 L 12/06/23 20:30 83/51 L 12/06/23 20:24 98.1 F 61 19 94 O2 Del Method 12/07/23 16:16 Room Air 12/07/23 15:27 12/07/23 10:55 12/07/23 09:09 12/07/23 08:30 12/07/23 08:00 Room Air 12/07/23 07:42 12/07/23 07:09 12/07/23 06:57 12/07/23 03:00 12/07/23 01:57 Room Air 12/07/23 01:12 Room Air 12/07/23 01:08 Room Air 12/06/23 23:43 Room Air 12/06/23 22:45 Room Air 12/06/23 22:30 Room Air 12/06/23 22:15 Room Air 12/06/23 22:00 Room Air 12/06/23 21:45 12/06/23 21:30 Room Air 12/06/23 21:15 12/06/23 21:10 12/06/23 21:09 12/06/23 21:09 12/06/23 20:45 12/06/23 20:41 12/06/23 20:40 Room Air 12/06/23 20:39 12/06/23 20:30 12/06/23 20:24 Room Air Recovery Score Activity: Moves 4 extremities Respiration: Deep Breath/Cough Circulation: +/-20% PreAnes Value Consciousness: Fully Awake Oxygen Saturation: O2 needed for >90% Discharge Sedation Level of Care: Fast Track Phase II Post Sedation Plan On clinical assessment, the patient appears to have tolerated the sedation without complications. Patient is recovering as anticipated. Patient will continue to be monitored by nursing and may be discharged when sedation discharge criteria are met per below protocol. Upon Completions of procedure up to 15 minutes continue every 5 minute vital signs and the P.A.R. score; then discharge to a Phase I or Fast Track to Phase II per the following guidelines: * Discharge Patient to appropriate Phase II area if PAR is 8 or greater or return to pre- procedure baseline. The post - procedure orders will be as directed. * If PAR score is less than 8 or not return to pre-procedure baseline then patient will follow Phase I monitoring till PAR is reached for Phase II. The Phase I may be done in procedure room or may call to secure a Phase I area. * If naloxone or flumazenil are used for reversal, hold in Phase I for continued monitoring from when last reversal dose was given for a minimum of 60 minutes or longer pending the nurse and/or physician discretion of patient condition before discharge to Phase II. Please call the Sedation Physician to re-evaluate and complete post-note for discharge to Phase II area. Do NOT discharge from procedure sedation or Phase 1 until post- sedation evaluation note is complete by procedure /sedation MD Sedation Discharge Instructions to be given to the patient at discharge to home.
[2023-12-07 18:37] LABS: iSTAT Creatinine 0.9 mg/dl (0.6-1.3); iSTAT Hemoglobin 13.3 g/dl (14.0-18.0); iSTAT Ionized Calcium 1.26 mmol/l (1.12-1.32); iSTAT Potassium 3.9 mmol/L (3.3-5.0)
--- NOTE | 2023-12-07 18:54 | Cardiac Catheterization ---
[facility] Data: Mail Superintendent Cardiac Status Clinical evaluation leading to the procedure CAD Presenation: Positive Stress Test Diagnostic Physicians Name: Asaf Newton MD Closure Device Recommendations: PCI without planned CABG Cardiac Cath Procedure Full Procedure Date December 07, 2023 Pre-Procedure Diagnosis Pre-Procedure Diagnosis: Positive Stress Test and Arrhythmia AUC Score AUC Score: 7 Post-Procedure Diagnosis Post-Procedure Diagnosis: Severe CAD and Successful PCI Procedure(s) Performed Procedure(s) Performed: Coronary Angiography, Drug Eluting Stent and IVUS [employer] Inspector Asaf Newton MD Early Head Start Director(s) [place] Estimated Blood Loss Estimated Blood Loss: < 20 ml Medication(s) Medication(s): Fentanyl, Heparin, Lidocaine 1%, Nicardipine, Nitroglycerin and Versed Medication(s): Ticagrelor Summary of Findings Indication: Abnormal stress test Access: 6 Fr right radial artery Catheters: EBU 3.5 guide Findings: For full details of patient's coronary angiography please see cath report dictated by Dr. Anand. Briefly, patient found to have severe, 90% ostial diagonal disease, intermediate mid LAD disease. Decision to proceed with PCI. -- PCI -- Antithrombotic therapy: Heparin, ticagrelor Procedure: Left main cannulated with EBU 3.5 guide Pre-procedure flow JAQUELINE 3 [place] blue wire placed into distal LAD Senior Database Administrator 50 wire passed across lesion into distal diagonal Kwok IVUS catheter placed in the distal LAD. Pullback revealed concentric calcified plaque in the midsegment up to 50% at bifurcation with diagonal. Proximal LAD/left main without significant disease. Ostial diagonal lesion predilated with 2.5 compliant balloon Dilated diagonal lesion stented with 3.0 x 12 mm Xience drug-eluting stent with proximal edge extending just into LAD With stent placement LAD distal to diagonal narrowed likely secondary to plaque shift Stent postdilated with 4.0 NC balloon Mid LAD across diagonal takeoff dilated with 2.5 balloon LAD stented with 3.5 x 18 mm Xience drug-eluting stent Diagonal rewired with a airplane pilot 50 wire LAD postdilated with 4.5 NC balloon Stent struts into diagonal dilated with 2.0 balloon IC vasodilators administered for spasm Post procedure JAQUELINE 3 flow, stents well expanded with minimal residual stenosis and no apparent cardiac complications. Arterial Closure: TR band Summary: 1. Successful PCI of LAD/D1 bifurcation with 2 drug-eluting stents (LAD3.5 x 18 mm Xience postdilated with 4.5 NC; D1 3.0 x 12 mm Xience postdilated with 3.5 NC; T-stenting). Recommendations: To PCU for continued monitoring Loaded with ticagrelor 180 mg in Mail Superintendent Continue dual-antiplatelet therapy for at least 6 months Continue statin, and ASCVD risk factor modification Consult cardiac Rehab Hemodynamics Rest Ao:: 163/81/111 Final Ao: 110/71/88 LV: -- Recommendations Recommendations: PCI without planned CABG Specimens Specimens: None Radiation Exposure (mGy) 4132 Contrast (mls) 175 Anesthesia Moderate 6759-4180 Procedural Complication(s) None Disposition remained in nursery laborer for PCI attempt I attest to the content of the Intraoperative Record and any orders documented therein. Any exceptions are noted below. [facility] Card Cath Procedure Codes Therapeutic Services & Ancillary Procedure 1: Cardiovascular Tx and Anc Procedures: 19938 IV Ultrasound (Coronary or Graft) Moderate Sedation Procedure 1: Sedation/Anesthesia: 47565 Mod Sedation by the same physician; Ea [id number] Minutes Stenting Procedure 1: Cardiovascular Stent Procedures: 97492 Perc transcatheter placement of intracoronary stent(s), with ang PG Care Time/CCT Total # of Minutes Spent Total Time Spent with Patient: Total time spent is greater than 50% in coordination of care (as documented) at patient's floor/unit and/or counseling patient:
[2023-12-07] MEDS: SODIUM CHLORIDE 0.9% 1,000 ML IV SCH (19:00)
[2023-12-07] MEDS: ROSUVASTATIN CALCIUM 10 MG TAB PO SCH (20:24)
[2023-12-08 00:14] VITALS: TEMP 97.5
[2023-12-08 03:08] VITALS: O2SAT 96
--- NOTE | 2023-12-08 06:02 | Electrocardiogram Report ---
Test Reason : Blood Pressure : */* mmHG Vent. Rate : 43 BPM Atrial Rate : 43 BPM P-R Int : 144 ms QRS Dur : 90 ms QT Int : 452 ms P-R-T Axes : 68 55 48 degrees QTcB Int : 381 ms Marked sinus bradycardia with junctional bradycardia Nonspecific T wave abnormality Abnormal ECG When compared with ECG of 01-May-2023 16:51, Junctional bradycardia is now Present Confirmed by Mahendra Anand ([id number]) on 12/08/2023 6:01:31 AM Referred By: REFERRED SELF Confirmed By: Mahendra Anand
--- NOTE | 2023-12-08 06:02 | Electrocardiogram Report ---
Test Reason : Blood Pressure : */* mmHG Vent. Rate : 63 BPM Atrial Rate : 63 BPM P-R Int : 180 ms QRS Dur : 94 ms QT Int : 410 ms P-R-T Axes : 62 46 45 degrees QTcB Int : 419 ms Normal sinus rhythm Nonspecific T wave abnormality Abnormal ECG When compared with ECG of 06-Dec-2023 20:33, Junctional bradycardia is no longer Present Confirmed by Mahendra Anand ([id number]) on 12/08/2023 6:01:55 AM Referred By: REFERRED SELF Confirmed By: Mahendra Anand
[2023-12-08 07:47] VITALS: RESP 20
[2023-12-08 07:48] LABS: BUN Creatinine Ratio 17.9 (10-20); Calcium 8.5 mg/dl (8.6-10.3); Creatinine Clr Calc Pharmacy 95.4 ml/min; Est GFR (Non-African American) 90.6 ml/min; Potassium 4.1 mmol/L (3.5-5.1)
[2023-12-08] MEDS: TICAGRELOR 90 MG TAB PO SCH (08:59)
[2023-12-08] MEDS: hydrALAZINE 10 MG TAB PO STA (09:26)
--- NOTE | 2023-12-08 10:08 | Cardiology Progress Note ---
Date of Service December 08, 2023 Assessment & Plan (1) CAD (coronary artery disease): (2) S/P coronary artery stent placement: (3) Abnormal stress echo: (4) Ventricular tachycardia: (5) Junctional bradycardia: (6) Acute hypotension: (7) Hyperlipidemia: (8) HTN (hypertension): (9) Dyspnea on exertion: Plan ASSESSMENT/PLAN: 1. CAD s/p LAD and D1 PCI: No angina or other symptoms since PCI. No further arrhythmia issues. Continue aspirin 81 mg daily indefinitely. Continue Brilinta for at least 6 months. Importance of antiplatelet therapy discussed with him in detail. Suggested cardiac rehab but he would like to give it further thought. Recommend high intensity statin therapy. 911 for angina that does not resolve within 5 minutes of nitroglycerin. 2. Ventricular tachycardia: Occurred with exercise. Possibly due to ischemia. Plan as above. No beta-christiane given junctional bradycardia on presentation. Outpatient monitor to evaluate for further arrhythmia following PCI. 3. Junctional bradycardia: Possibly vagal given diaphoresis on presentation ve rsus from ischemia. Recommend monitor on discharge. 4. Acute hypotension: Possibly vagal as above. Responded well to IV fluids. Mostly hypertensive since cardiac catheterization. Can resume home ARB. 5. Dyslipidemia: Increase rosuvastatin for high intensity statin therapy. 6. Hypertension: Blood pressure now mostly elevated after initial hypotension. Can resume home therapy. 7. Dyspnea on exertion: Euvolemic. No symptoms since PCI. 8. Disposition: Can discharge home from a cardiology perspective. Will arrange follow-up in the outpatient office in approximately 1 week. Plan of care communicated with Dr. Collins of the hospitalist service. Admission and Anticipated Discharge Date Admission Date: December 07, 2023 Subjective Patient seen this morning. No chest pain, shortness of breath, diaphoretic episodes, syncope, near syncope, palpitations, edema, or bleeding. He has not yet ambulated in the hallway but was encouraged to do so. He was unaccompanied. Physical Exam Physical Exam: Gen.: No acute distress. Alert and oriented. HEENT: Anicteric sclera. Neck: No JVD. Cardiac: Regular. Normal S1-S2. No murmurs, rubs, or gallops. Pulmonary: Clear to auscultation bilaterally without wheezes, rales, or rhonchi. Abdomen: Soft, nontender, nondistended, with normoactive bowel sounds. No bruits noted. Extremities: 2+ radial pulses bilaterally. Right radial cath site was clean, dry, and intact without erythema or discharge. 2+ posterior tibialis pulses bilaterally. No edema or cyanosis. Results & Data Vital Signs (Past 12 Hours) Vital Signs Temp Pulse Resp BP Pulse Ox O2 Del Method 12/08/23 07:46 36.4 C L 48 L 20 155/78 H 96 Room Air 12/08/23 05:11 124/76 12/08/23 03:08 36.4 C L 63 18 173/76 H 96 Room Air 12/07/23 23:03 36.4 C L 55 L 18 173/72 H 95 Room Air Laboratory Results Laboratory Results - last 24 hr 12/06/23 12/07/23 12/07/23 20:34 04:33 16:06 POC Hgb POC Hct Activ Coag Time Kaolin POC Sodium Sodium 138 POC Potassium Potassium 4.2 POC Chloride Chloride 107 Carbon Dioxide 26 POC Total CO2 Anion Gap 5 POC Anion Gap POC BUN BUN 18 Creatinine 0.86 D POC Creatinine Est Cr Clr Drug Dosing 93.2 Est GFR ( Amer) 104.0 Est GFR (Non-Af Amer) 89.7 BUN/Creatinine Ratio 20.9 H Glucose 94 POC Glucose (other) Calcium 9.0 POC Ioniz Calcium [place] TSH 1.067 Lyme Disease Screen Negative 12/07/23 12/07/23 12/07/23 16:49 17:27 17:48 POC Hgb 13.3 L POC Hct 39 L Activ Coag Time Kaolin 232 H 299 H POC Sodium 140 Sodium POC Potassium 3.9 Potassium POC Chloride 105 Chloride Carbon Dioxide POC Total CO2 22 L Anion Gap POC Anion Gap 17.0 POC BUN 16 BUN Creatinine POC Creatinine 0.9 Est Cr Clr Drug Dosing Est GFR ( Amer) Est GFR (Non-Af Amer) BUN/Creatinine Ratio Glucose POC Glucose (other) 93 Calcium POC Ioniz Calcium [place] 1.26 TSH Lyme Disease Screen 12/08/23 06:40 POC Hgb POC Hct Activ Coag Time Kaolin POC Sodium Sodium 140 POC Potassium Potassium 4.1 POC Chloride Chloride 109 H Carbon Dioxide 26 POC Total CO2 Anion Gap 5 POC Anion Gap POC BUN BUN 15 Creatinine 0.84 POC Creatinine Est Cr Clr Drug Dosing 95.4 Est GFR ( Amer) 105.0 Est GFR (Non-Af Amer) 90.6 BUN/Creatinine Ratio 17.9 Glucose 96 POC Glucose (other) Calcium 8.5 L POC Ioniz Calcium [place] TSH Lyme Disease Screen Diagnostic Findings Labs reviewed and notable for normal renal function, normal potassium. Cardiac cath reports reviewed. Telemetry personally reviewed: Sinus rhythm with sinus bradycardia. No arrhythmia. No junctional bradycardia. Medications Administered Current Inpatient Medications Acetaminophen (Acetaminophen 325 Mg Tab) 650 mg PO Q4H PRN PRN Reason: Pain or Fever Stop: 01/06/24 01:05 Aspirin (Aspirin 81 Mg Ectab) 81 mg PO QAM [facility] Stop: 01/06/24 15:30 Last Admin: 12/08/23 09:00 Dose: 81 mg Losartan Potassium (Losartan Potassium 50 Mg Tab) 100 mg PO DAILY [facility] Stop: 01/06/24 08:59 Last Admin: 12/08/23 09:01 Dose: 100 mg Ondansetron HCl (Ondansetron Inj 2 Mg/Ml 2 Ml Vial) 4 mg IV Q6H PRN PRN Reason: Nausea And Vomiting Stop: 01/06/24 01:05 Pantoprazole Sodium (Pantoprazole 40 Mg Tab) 40 mg PO DAILY [facility] Stop: 01/06/24 08:59 Last Admin: 12/08/23 09:00 Dose: 40 mg Polyethylene Glycol (Polyethylene (Miralax) 17 Gm Pack) 17 gm PO DAILY PRN PRN Reason: Constipation Stop: 01/06/24 01:05 Rosuvastatin Calcium (Rosuvastatin Calcium 10 Mg Tab) 10 mg PO HS [facility] Stop: 01/06/24 20:59 Last Admin: 12/07/23 20:24 Dose: 10 mg Senna/Docusate Sodium (Docusate Sodium/Senna 50/8.6mg Tab) 1 tab PO QAM [facility] Stop: 01/06/24 08:59 Last Admin: 12/08/23 09:00 Dose: 1 tab Ticagrelor (Ticagrelor 90 Mg Tab) 90 mg PO BID [facility] Stop: 01/07/24 08:59 Last Admin: 12/08/23 08:59 Dose: 90 mg PG Care Time/CCT Total # of Minutes Spent Total Time Spent with Patient: Total time spent is greater than 50% in coordination of care (as documented) at patient's floor/unit and/or counseling patient: Coding Level of Care Code 40830 SUB INP/OBS CARE 350MIN Diagnoses CAD (coronary artery disease) I25.10 S/P coronary artery stent placement Z95.5 Abnormal stress echo R94.39 Ventricular tachycardia I47.20 Junctional bradycardia R00.1 Acute hypotension I95.9 Hyperlipidemia E78.5 HTN (hypertension) I10 Dyspnea on exertion R06.09
[2023-12-08 11:16] VITALS: BP 158/98; PULSE 48
--- NOTE | 2023-12-08 17:39 | Discharge Summary ---
Discharge Summary Date of Service December 08, 2023 Principal Dx & Hospital Course #1 = Principal Diagnosis (1) S/P coronary artery stent placement: treadmill stress was abnormal and associated with VT Left heart catheterization revealed severe 90% ostial stenosis and intermediate LAD disease, 2 LAURA applied with good results will be on aspirin, brillinta, increased statin dose to crestor 40 and not on a b christiane due to slow resting heart rate will have outpt cardiac monitoring, oversight with Dr Anand nitro prn (2) Junctional bradycardia: Possible junctional bradycardia. lyme negative, tsh normal Patient with episode of dizziness, hypotension and bradycardia. Symptomatic with dizziness and near syncope, visual changes had resolved but family provided information these have been preceding hospitalization for days to weeks Patient underwent treadmill echocardiography where he had marked changes and including a run of V. tach Cardiology consultation and referral for heart catheterization revealed a large first diagonal with ostial stenosis s/p stenting Plan Hyperlipidemia - chronic. stabe -Continue Crestor GERD - chronic. stable -Continue Protonix Hypertension - chronic. stable -Continue Losartan - will hold if Cr worsens ADHD - chronic. stable -Continue Dextroamphetaminelikely recommend to discontinue this given coronary disease Code - Full Notes For Next Care Provider will need risk factor modification cardiology to set up cardiac rehab Admission HPI Per Admitting Provider Damian Gee is a 68yo male with history of GERD and HTN presenting with episode of diaphoresis and dizziness. Patient had been in his usual state of health. He was out to dinner this evening with his when he started feeling ill. He had fairly sudden onset of profuse diaphoresis, dizziness and lightheadedness. He was speaking but not making sense. He reports that he had some visual disturbance as well - things appeared to be blurry. He felt very weak and lethargic. He reports that his was having a difficult time palpating a pulse so she brought him to the ER. Hypotensive on arrival with BP of 79/56. Bradycardic with HR in the 30-40's initially - questionable junctional rhythm on monitor and initial EKG. Patient reports symptoms have been improving since receiving IVF. He denies fever, chills, chest pain, palpitations, cough, SOB, abdominal pain, nausea, vomiting or diarrhea. ER Course: NSS x 2L Pepcid Ceftriaxone Protonix Thiamine Discharge Exam awake and alert heart is regular cath site is clean and intact Discharge Plan Discharge Items Patient Disposition: Home - Self-Care Reason For Visit: DIZZINESS, DIAPHORESIS Discharge Diagnosis: exertional dyspnea secondary to CAD stent placement in first diagonal of Left anterior descending artery Condition on Discharge: Good Activity: Per Instructions section Activity Comment: no intentional activity until seen in follow up by Cardiology Non-emergency contact: Primary Care Provider and Major Appliance Assembly Supervisor Call non-emergency contact if: your symptoms worsen Follow-up/Referrals: Asaf Castillo MD [Physician] - 12/08/23 2:30 pm (Appointment with Cardiology Nurse to place event monitor. ) Rai Hadley [Primary Care Provider] - 12/13/23 10:25 am (Hospital follow up scheduled December 12 at 10:25) Diet: Heart Healthy Addtl Attending Provider Instructions: ACTIVITY RECOMMENDATIONS: Excess manipulation of the wrist should be avoided for the next 24-48 hours. * No lifting over 2 pounds (approximately a 1/2 gallon of milk) with the utilized arm for 24 hours. * No strenuous activity such as bowling or tennis for 3 days. * Keep the site of the procedure covered with a bandage for 24 hours. *You may shower the day after the procedure. Do not take a tub bath or submerge the puncture site in water for the next 3 days. *Do not operate any motorized equipment for 3 days. SPECIAL CARE INSTRUCTIONS: The site may be slightly bruised and sore following your procedure. Should any of the following occur, contact the Dr. who performed your procedure. 1. Redness/inflammation, swelling, chills, or fever, or colored drainage at procedure site within 3-7 days after your procedure. 2. Coldness, discoloration, ongoing numbness, severe pain, or swelling. Expect mild tingling of hand and tenderness at the puncture site for up to three days. If this persists beyond three days, or other symptoms develop, notify the Dr. who performed your procedure. BLEEDING: If the procedure site on your wrist begins to bleed, do not panic 1. Place 1 or 2 fingers firmly just slightly above the insertion site to stop the bleeding. You may be able to feel your pulse as you hold pressure. 2. Lift your finger after 5 minutes to see if the bleeding has stopped. 3. Once the bleeding has stopped, gently wipe the wrist area clean with a bandage. * If the bleeding from your wrist does not stop after 10 minutes, or if there is a large amount of bleeding or spurting, call 911 (do not drive yourself to the hospital). SKIN IRRITATION: * You may experience some redness and/or swelling in the area where radiation was administered. If any skin irritation occurs, please contact your family physician. FOLLOW UP VISIT: 1. Follow up in Dr. Anand's office in the next 1-2 weeks. Keep any scheduled doctor appointments. Pending Studies at Discharge: Yes Studies:: lyme testing Stand-Alone Forms: My [facility] [employer], Smoking Cessation Medications and DC Order Prescriptions: New Brilinta 90 mg Tablet 90 mg PO BID Qty: 60 5RF aspirin 81 mg Tablet,Delayed Release (Dr/Ec) 81 mg PO QAM Qty: 90 3RF nitroglycerin [Nitrostat] 0.4 mg tablet, sublingual 0.4 mg sublingual Q5M PRN (Reason: chest pain) Qty: 1 2RF Rx Instructions: take if chest pressure or shortness of breath if you have relief notify your websphere message broker developer if not relieved report to ER Continued pantoprazole 40 mg tablet,delayed release (DR/EC) 40 mg PO DAILY irbesartan 300 mg tablet 300 mg PO DAILY cholecalciferol (vitamin D3) [Vitamin D3] 25 mcg (1,000 unit) Tablet 25 mcg PO DAILY coQ10 (ubiquinol) 100 mg Capsule 0 mg PO DAILY Changed rosuvastatin 10 mg Tablet 40 mg PO HS 30 Days Qty: 120 5RF Rx Instructions: please substitute 40 mg tablets but want pt to use home supply first Held sildenafil 50 mg tablet 50 mg PO DAILY PRN (Reason: .erectile disfunction) Hold Instructions: Provider's Order, until cleared for physical activity Discontinued dextroamphetamine-amphetamine 20 mg capsule,extended release 24hr 20 mg PO QAM Discharge Orders: Discharge Order (Routine); Ordered 12/08/23 Ordered By: Jam Collins Admission Data Admit Date/Time: 12/07/23 00:12 Attending Provider: Jam Collins Admit Provider: Saira Hernandez Primary Care Provider: Rai Hadley Other Providers: Saira Hernandez; Mahendra Anand Other Interventions: Discharge Summary Assessment (RN) Last Done: 12/08/23 11:15 Hospital Stay Data Consultations 12/06/23 23:33 ED Decision to Admit Stat 12/07/23 15:08 Consult Cardiology Routine Procedures Performed Operation Date: 12/07/23 15:30 Actual Procedures p Cineradiography w/Routine Exam - Mahendra Anand MD p Cath, Left with Cors and Vent - Mahendra Anand MD s Drug Eluting Stent SGl Vessel - Asaf Newton MD s IVUS Coronary Single Vessel - Asaf Newton MD s Drug Eluting Stent each ADDTL Vessel - Asaf Newton MD Diagnostic Imagining Performed 12/06/23 20:43 CT abd pelvis IV con only Stat CT angio chest PE protocol Stat CT angio head w con Stat CT angio neck with con Stat CT head/brain wo con Stat 12/07/23 16:35 CL Cath Imgs for PACS use only Routine 12/07/23 18:37 CL IVUS Coronary Single Vessel Routine Pending Results Patient Have Any Pending Studies at Discharge: Yes Discharge Instructions Given to Patient (Per Discharging Provider) ACTIVITY RECOMMENDATIONS: Excess manipulation of the wrist should be avoided for the next 24-48 hours. * No lifting over 2 pounds (approximately a 1/2 gallon of milk) with the utilized arm for 24 hours. * No strenuous activity such as bowling or tennis for 3 days. * Keep the site of the procedure covered with a bandage for 24 hours. *You may shower the day after the procedure. Do not take a tub bath or submerge the puncture site in water for the next 3 days. *Do not operate any motorized equipment for 3 days. SPECIAL CARE INSTRUCTIONS: The site may be slightly bruised and sore following your procedure. Should any of the following occur, contact the Dr. who performed your procedure. 1. Redness/inflammation, swelling, chills, or fever, or colored drainage at procedure site within 3-7 days after your procedure. 2. Coldness, discoloration, ongoing numbness, severe pain, or swelling. Expect mild tingling of hand and tenderness at the puncture site for up to three days. If this persists beyond three days, or other symptoms develop, notify the DrNicola who performed your procedure. BLEEDING: If the procedure site on your wrist begins to bleed, do not panic 1. Place 1 or 2 fingers firmly just slightly above the insertion site to stop the bleeding. You may be able to feel your pulse as you hold pressure. 2. Lift your finger after 5 minutes to see if the bleeding has stopped. 3. Once the bleeding has stopped, gently wipe the wrist area clean with a bandage. * If the bleeding from your wrist does not stop after 10 minutes, or if there is a large amount of bleeding or spurting, call 911 (do not drive yourself to the hospital). SKIN IRRITATION: * You may experience some redness and/or swelling in the area where radiation was administered. If any skin irritation occurs, please contact your family physician. FOLLOW UP VISIT: 1. Follow up in Dr. Anand's office in the next 1-2 weeks. Keep any scheduled doctor appointments. Total Time Total Time Spent Total Time Spent (In Minutes): It required greater than 30 minutes to prepare this patient for discharge. Coding Level of Care Code 07138 INP/OBS DISCH >30 MIN Diagnoses S/P coronary artery stent placement Z95.5 Junctional bradycardia R00.1
[2023-12-08] MEDS ORDERED: ROSUVASTATIN CALCIUM 20 MG TAB PO SCH (21:00)
== END 2023-12-08 11:26 | disposition home or self-care (01) ==
LOC: EDINP 20:22 → ED 20:22 → SUATTDRO 12-07 00:12 → EDINP 12-07 01:05 → 2S 12-07 18:47

== ENCOUNTER 2023-12-09 17:08 | Observation (INO) ==
[2023-12-09 17:28] VITALS: TEMP 97.3
[2023-12-09 18:03] LABS: Basophils # (auto) 0.03 K/uL (0.00-0.20); Basophils % (auto) 0.6 %; Eosinophils # (auto) 0.13 K/uL (0.00-0.50); Eosinophils % (auto) 2.7 %; Hematocrit (blood only) 39.1 % (42.0-52.0); Hemoglobin 13.8 g/dl (14.0-18.0); Immature Granulocytes # (auto) 0.01 K/uL (0.01-0.20); Immature Granulocytes % (auto) 0.2 %; Lymphocytes # (auto) 1.06 K/uL (1.20-3.40); Lymphocytes % (auto) 21.9 %; Mean Corpuscular Hemoglobin 33.1 pg (25.0-34.0); Mean Corpuscular Hgb Conc 35.3 g/dL (32.0-36.0); Mean Corpuscular Volume 93.8 fL (80.0-100.0); Monocytes # (auto) 0.42 K/uL (0.11-0.59); Monocytes % (auto) 8.7 %; Neutrophils # (auto) 3.19 K/uL (1.40-6.50); Neutrophils % (auto) 65.9 %; Platelet Count 238 K/uL (130-400); RDW Coefficient of Variation 11.9 % (11.5-14.5); RDW Standard Deviation 41.2 fL (36.4-46.3); Red Blood Count 4.17 M/uL (4.70-6.10); White Blood Count 4.84 K/ul (4.8-10.8)
[2023-12-09 18:17] LABS: Albumin Globulin Ratio 1.6 (0.9-2); Albumin Level 4.2 gm/dl (3.4-5.0); BUN Creatinine Ratio 17.1 (10-20); Bilirubin,Total 0.4 mg/dl (0.2-1.0); Calcium 9.2 mg/dl (8.6-10.3); Creatinine Clr Calc Pharmacy 94.8 ml/min; Est GFR (African American) 106.1 ml/min; Est GFR (Non-African American) 91.5 ml/min; Globulin 2.7 gm/dl (2.5-4.0); Potassium 3.8 mmol/L (3.5-5.1); Total Protein 6.9 gm/dl (6.0-8.3)
[2023-12-09 18:34] LABS: INR 1.1 (0.9-1.1); Partial Thromboplastin Time 26 Seconds (21-31); Prothrombin Time 11.4 Seconds (9.0-12.0)
--- NOTE | 2023-12-09 18:58 | Emergency Department Note ---
Impression & Plan Non-ST elevation GA (NSTEMI), Dizziness ED Provider Note HISTORY OF PRESENT ILLNESS: Patient is a 68-year-old male presenting with an episode of dizziness. Patient reports that he felt dizzy like he was going to pass out earlier today at around 1400. Reports episode lasted for about 2 hours and he decided to come get evaluated. He states he had a pounding right-sided headache with the episode and he took his blood pressure at home and it was in the 200s systolically. He is on aspirin and Brilinta. He just had 2 stents placed 48 hours ago. He states he was doing well up until today. Denies any chest pain or shortness of breath with the episode. Denies any nausea or vomiting. He states that last night his heart rate monitor fell off and he is supposed to wear it for 24 hours. He has not taken anything for his headache at this time. On my assessment, he is still complaining of vague headache on the right side of his head. Denies any recent falls or head injury. Denies any changes in vision, numbness or tingling or weakness in extremities. He denies any nausea or vomiting. ROS: as above PHYSICAL EXAM: Constitutional: Patient appears in no acute distress. HENT: Head: Normocephalic and atraumatic. Eyes: EOMI, PERRL Mouth/Throat: Mucous membranes moist. Neck: Trachea midline. Neck supple. Cardiovascular: RRR, No murmurs, rubs or gallops. Intact distal pulses. Pulmonary/Chest: No respiratory distress. Breath sounds clear and equal bilaterally. No wheezes or rales. Abdominal: Abdomen soft, no tenderness, rebound or guarding. Musculoskeletal: No edema, tenderness or deformity noted. Skin: Warm and dry. No rash, erythema, pallor or cyanosis Psychiatric: Appropriate mood and affect for situation. Neurological: Alert and keenly responsive. CN II-XII grossly intact, moving all extremities equally and fully. MDM: - Vitals signs showed hypertension - History obtained via patient. History as above. - Chronic conditions affecting care: CAD (s/p PCI); ventricular tachycardia; HTN; HLD; GERD - Differential diagnoses include, but are not limited to: ACS; dysrhythmia; pneumonia; pulmonary embolism; electrolyte abnormality - Order placed for continuous cardiac monitoring. At this time, monitor showed rate of 55 bpm with normal sinus rhythm, per my interpretation. - External medical records reviewed. Discharge summary dated 12/08/2023 was reviewed. Patient had a treadmill stress test which was abnormal and showed associated ventricular tachycardia. He had a left heart catheterization which showed severe 90% ostial stenosis and intermediate LAD disease and had 2 drug- eluting stents placed. He is on aspirin and Brilinta. - EKG interpreted by myself showed normal sinus rhythm. Rate 68 bpm. QT 384. No acute ischemic changes. - Laboratory workup interpreted by myself showed normal WBC; normal PT/INR; stable electrolytes; elevated troponin (291.0) - CXR negative for pneumonia, per my interpretation - Repeat troponin slightly rising at 296.7 - Patient given 1g IV tylenol in ER for headache. - Discussed case with hospital medical biller on-call, Dr. Newton, at 20:20. He reports the patient does not need to be heparinized at this time but recommended continuing the aspirin and Brilinta. He thinks that the patient may be having some dizziness secondary to his underlying rhythm issue. He agrees with admission to telemetry and cardiology will evaluate in the morning. - Discussion was had with hospice case manager about patient's case and need for admission - Hospitalist, Dr. Agee, consulted for admission - [facility] for further evaluation and management. ASSESSMENT AND PLAN: Diagnosis: NSTEMI; dizziness Plan: Admit Past Med/Surg History Problem List (Updated 12/09/23 @ 20:59 by Lisa Khan MD) Dizziness (Acute) Non-ST elevation GA (NSTEMI) (Acute) S/P coronary artery stent placement CAD (coronary artery disease) Dyspnea on exertion Ventricular tachycardia Abnormal stress echo HERSON (acute kidney injury) (Acute) Junctional bradycardia (Acute) Acute hypotension (Acute) Acute alteration in mental status (Acute) Erectile dysfunction due to psychophysiologic disorder Medical History (Updated 12/09/23 @ 20:59 by Lisa Khan MD) Hyperlipidemia ADHD GERD (gastroesophageal reflux disease) HTN (hypertension) Surgical History (Updated 12/08/23 @ 10:03 by Mahendra Anand MD) No pertinent past surgical history Family History Father Myocardial infarction Diabetes Hypertension Brother Prostate cancer Denies family history of Ovarian cancer Breast cancer Colorectal cancer Social History Smoking Status: Never smoker Second Hand Exposure: Yes; Hx Alcohol Use: No Hx Substance Use: Yes Prescribed Medications: Marijuana Preferred Language: [place] Visual Impairment: Limited Hearing Ability: Normal Beliefs That Will Affect Care: None marital status: Current Living Situation: Family current occupational status: retired Feels Safe at Home: Yes Childhood Exposure to Second-Hand Smoke: Yes Dental Care, Regularly: Yes Physical Activity Frequency: Daily Seatbelt Use: always Sunscreen Use: No Allergies Allergies Allergy/AdvReac Type Severity Reaction Status Date / Time neomycin Allergy Unknown rash from Verified 12/06/23 23:53 topical ointment Penicillins Allergy Rash Verified 12/06/23 23:53 Home Meds Home Medications Medication Instructions Recorded Confirmed cholecalciferol (vitamin D3) 25 25 mcg PO DAILY 12/06/23 12/09/23 mcg (1,000 unit) tablet (Vitamin D3) coQ10 (ubiquinol) 100 mg capsule 0 mg PO DAILY 12/06/23 12/09/23 irbesartan 300 mg tablet 300 mg PO DAILY 12/06/23 12/09/23 pantoprazole 40 mg tablet,delayed 40 mg PO DAILY 12/06/23 12/09/23 release sildenafil 50 mg tablet 50 mg PO DAILY PRN .erectile 12/06/23 12/09/23 disfunction Previous Rx's Medication Instructions Recorded aspirin 81 mg tablet,delayed 81 mg PO QAM #90 tabs 12/08/23 release nitroglycerin 0.4 mg sublingual 0.4 mg sublingual Q5M PRN chest 12/08/23 tablet (Nitrostat) pain #1 btl rosuvastatin 10 mg tablet 40 mg (4 x 10 mg) PO HS 30 days 12/08/23 #120 tabs ticagrelor 90 mg tablet (Brilinta) 90 mg PO BID #60 tabs 12/08/23 Results & Data (ED) Vital Signs Vital Signs - 24 hr 12/09/23 17:23 12/09/23 19:35 12/09/23 19:51 Temperature 36.3 C L Temperature Source Temporal Artery Scan Pulse Rate 66 60 58 L Pulse Rate from SpO2 Sensor 57 L Respiratory Rate 20 20 Blood Pressure 177/87 H Blood Pressure Mean 117 Pulse Oximetry 95 96 Oxygen Delivery Method Room Air Sepsis Recent Fever Within 48 Hours No Sepsis New/Unexplained Change in Mental Status N/A Sepsis Action Taken by Nursing No Action Required 12/09/23 20:00 12/09/23 20:00 12/09/23 20:18 Temperature Temperature Source Pulse Rate 56 L Pulse Rate from SpO2 Sensor 55 L Respiratory Rate 13 Blood Pressure 168/105 H 168/105 H Blood Pressure Mean 117 117 Pulse Oximetry 95 Oxygen Delivery Method Room Air Sepsis Recent Fever Within 48 Hours Sepsis New/Unexplained Change in Mental Status Sepsis Action Taken by Nursing 12/09/23 20:30 12/09/23 20:33 Temperature Temperature Source Pulse Rate 55 L Pulse Rate from SpO2 Sensor 58 L Respiratory Rate 16 Blood Pressure 157/97 H Blood Pressure Mean 121 Pulse Oximetry 97 Oxygen Delivery Method Room Air Sepsis Recent Fever Within 48 Hours Sepsis New/Unexplained Change in Mental Status Sepsis Action Taken by Nursing Laboratory Data 12/09/23 17:45 12/09/23 17:45 Lab Results 12/09/23 12/09/23 Range/Units 17:45 19:30 WBC 4.84 (4.8-10.8) K/ul RBC 4.17 L (4.70-6.10) M/uL Hgb 13.8 L (14.0-18.0) g/dl Hct 39.1 L (42.0-52.0) % MCV 93.8 (80.0-100.0) fL MCH 33.1 (25.0-34.0) pg MCHC 35.3 (32.0-36.0) g/dL RDW Std Deviation 41.2 (36.4-46.3) fL RDW Coeff of Jaren 11.9 (11.5-14.5) % Plt Count 238 (130-400) K/uL MPV 11.0 (9.4-12.4) fL Immature Gran % (Auto) 0.2 % Neut % (Auto) 65.9 % Lymph % (Auto) 21.9 % Davie % (Auto) 8.7 % Eos % (Auto) 2.7 % Baso % (Auto) 0.6 % Neut # (Auto) 3.19 (1.40-6.50) K/uL Lymph # (Auto) 1.06 L (1.20-3.40) K/uL Davie # (Auto) 0.42 (0.11-0.59) K/uL Eos # (Auto) 0.13 (0.00-0.50) K/uL Baso # (Auto) 0.03 (0.00-0.20) K/uL Immature Gran # (Auto) 0.01 (0.01-0.20) K/uL PT 11.4 (9.0-12.0) Seconds INR 1.1 (0.9-1.1) APTT 26 (21-31) Seconds PTT Ratio 1.0 Sodium 138 (136-145) mmol/L Potassium 3.8 (3.5-5.1) mmol/L Chloride 105 (98-107) mmol/L Carbon Dioxide 26 (21-32) mmol/L Anion Gap 7 (3-11) BUN 14 (6-23) mg/dl Creatinine 0.82 (0.6-1.4) mg/dl Est Cr Clr Drug Dosing 94.8 ml/min Est GFR ( Amer) 106.1 ml/min Est GFR (Non-Af Amer) 91.5 ml/min BUN/Creatinine Ratio 17.1 (10-20) Glucose 128 H (70-99(Fasting)) mg/dl Calcium 9.2 (8.6-10.3) mg/dl Total Bilirubin 0.4 (0.2-1.0) mg/dl AST 28 (13-39) U/L ALT 17 (7-52) U/L Alkaline Phosphatase 56 (34-104) U/L Troponin I High Sens 291.0 H* 296.7 H* (0-20) pg/ml Total Protein 6.9 (6.0-8.3) gm/dl Albumin 4.2 (3.4-5.0) gm/dl Globulin 2.7 (2.5-4.0) gm/dl Albumin/Globulin Ratio 1.6 (0.9-2) Administered Medications Discontinued Medications Acetaminophen (Ofirmev) 1,000 mg in 100 mls @ 400 mls/hr IV NOW STA Stop: 12/09/23 19:09 Last Infusion: 12/09/23 20:33 Dose: Infused Documented By: Admin: 12/09/23 19:28 Dose: 400 mls/hr Documented By: RYDER Imaging Data Radiologist's Impression: Chest X-Ray 12/09/23 17:27 SINGLE VIEW CHEST CLINICAL HISTORY: Atypical chest pain FINDINGS: A PA chest radiograph is compared to chest x-ray and chest CT dated 12/06/2023. The heart is enlarged. The pulmonary vasculature is noncongested. The lungs and pleural spaces are clear. No pneumothorax is seen. The bony thorax is grossly intact. IMPRESSION: Cardiomegaly with no active disease in the chest. ACT 112: Negative or not required by law. Electronically signed by: Korey Tes M.D. 12/09/2023 7:35 PM Discharge Plan Visit Data Chief Complaint: Cardiac Assessment Stated Complaint: CARDIAC ASSESSMENT ED Provider: Lisa hKan Discharge Problem: Non-ST elevation GA (NSTEMI), Dizziness Forms Stand Alone Forms: Diavibe Prescriptions Prescriptions: No Action sildenafil 50 mg tablet 50 mg PO DAILY PRN (Reason: .erectile disfunction) Hold Instructions: Provider's Order, until cleared for physical activity pantoprazole 40 mg tablet,delayed release (DR/EC) 40 mg PO DAILY irbesartan 300 mg tablet 300 mg PO DAILY cholecalciferol (vitamin D3) [Vitamin D3] 25 mcg (1,000 unit) Tablet 25 mcg PO DAILY coQ10 (ubiquinol) 100 mg Capsule 0 mg PO DAILY Brilinta 90 mg Tablet 90 mg PO BID Qty: 60 5RF aspirin 81 mg Tablet,Delayed Release (Dr/Ec) 81 mg PO QAM Qty: 90 3RF rosuvastatin 10 mg Tablet 40 mg PO HS 30 Days Qty: 120 5RF Rx Instructions: please substitute 40 mg tablets but want pt to use home supply first nitroglycerin [Nitrostat] 0.4 mg tablet, sublingual 0.4 mg sublingual Q5M PRN (Reason: chest pain) Qty: 1 2RF Rx Instructions: take if chest pressure or shortness of breath if you have relief notify your hospital medical biller if not relieved report to ER Referrals Referrals: Rai Hadley [Primary Care Provider] -
[2023-12-09] MEDS: ACETAMINOPHEN 1,000 MG/100 ML VIAL IV STA (19:28)
--- NOTE | 2023-12-09 19:37 | XRay Report ---
SINGLE VIEW CHEST CLINICAL HISTORY: Atypical chest pain FINDINGS: A PA chest radiograph is compared to chest x-ray and chest CT dated 12/06/2023. The heart is enlarged. The pulmonary vasculature is noncongested. The lungs and pleural spaces are clear. No pneu mothorax is seen. The bony thorax is grossly intact. IMPRESSION: Cardiomegaly with no active disease in the chest. ACT 112: Negative or not required by law. Electronically signed by: Korey Tse M.D. 12/09/2023 7:35 PM
--- NOTE | 2023-12-09 20:59 | History & Physical Report ---
Date of Service December 09, 2023 Assessment & Plan (1) Dizziness: (2) Headache: (3) Elevated troponin: (4) Presence of drug coated stent in LAD coronary artery: (5) Non-ST elevation CO (NSTEMI): (6) CAD (coronary artery disease): (7) Ventricular tachycardia: (8) HTN (hypertension): (9) Junctional bradycardia: (10) GERD (gastroesophageal reflux disease): (11) Hyperlipidemia: Plan Headache/episode of dizziness- Patient presents to the emergency department with these symptoms, which cardiology has felt in the past might be heart rhythm/rate related Will maximize medical therapy for coronary disease and recent stent placement as below Lorazepam 0.5 mg p.o. twice daily as needed to deal with any anxiety component Elevated troponin/CAD/hypertension/recent placement of LAD LAURA/history of V. tach- The patient will be admitted to telemetry for serial cardiac enzymes, serial EKG's, cardiac rhythm monitoring Initial troponin 291.0, which is the first troponin after the recent cardiac catheterization and stent placement, and follow-up 296.7 Continue aspirin 81 mg daily, Brilinta 90 mg p.o. twice daily, irbesartan 300 mg p.o. daily, and nitroglycerin sublingual as needed Interventional cardiology Dr. Newton is aware, and no recommendations were heparin at this time Hyperlipidemia- Continue rosuvastatin, which he took 40 mg the morning of 12/08 GERD- Continue pantoprazole History of Present Illness Chief Complaint: The patient presents to the emergency department with an episode of right sided throbbing headache, and dizziness, with a feeling that he might pass out, that occurred around 2:00 PM this afternoon. He reports the episode lasted about 2 hours, and after taking his blood pressure at home and finding that the systolic number was over 200, he decided to come to the ED for assessment. Primary Care Provider: Rai Hadley The patient is a 68-year-old male with a past medical history including CAD status post coronary angiography with drug-eluting stent and IVUS, Status post successful PCI of LAD/D1 bifurcation with 2 drug-eluting stents on 12/07/2023, ventricular tachycardia, acute kidney injury, junctional bradycardia, hypertension, GERD and hyperlipidemia. He presents to the emergency department with throbbing right-sided headache, dizziness, near syncope, and elevated systolic blood pressure as noted above. Allergies Allergy/AdvReac Type Severity Reaction Status Date / Time neomycin Allergy Unknown rash from Verified 12/06/23 23:53 topical ointment Penicillins Allergy Rash Verified 12/06/23 23:53 Home Medications Medication Instructions Recorded Confirmed Type cholecalciferol (vitamin D3) 25 25 mcg PO DAILY 12/06/23 12/09/23 History mcg (1,000 unit) tablet (Vitamin D3) coQ10 (ubiquinol) 100 mg capsule 0 mg PO DAILY 12/06/23 12/09/23 History irbesartan 300 mg tablet 300 mg PO DAILY 12/06/23 12/09/23 History pantoprazole 40 mg tablet,delayed 40 mg PO DAILY 12/06/23 12/09/23 History release sildenafil 50 mg tablet 50 mg PO DAILY PRN .erectile 12/06/23 12/09/23 History disfunction aspirin 81 mg tablet,delayed 81 mg PO QAM #90 tabs 12/08/23 12/09/23 Rx release nitroglycerin 0.4 mg sublingual 0.4 mg sublingual Q5M PRN chest 12/08/23 12/09/23 Rx tablet (Nitrostat) pain #1 btl rosuvastatin 10 mg tablet 40 mg (4 x 10 mg) PO HS 30 days 12/08/23 12/09/23 Rx #120 tabs ticagrelor 90 mg tablet (Brilinta) 90 mg PO BID #60 tabs 12/08/23 12/09/23 Rx Past Med/Surg History Problem List (Updated 12/10/23 @ 01:27 by Scott Agee MD) Headache Hyperlipidemia Elevated troponin Presence of drug coated stent in LAD coronary artery GERD (gastroesophageal reflux disease) HTN (hypertension) Dizziness (Acute) Non-ST elevation CO (NSTEMI) (Acute) S/P coronary artery stent placement CAD (coronary artery disease) Dyspnea on exertion Ventricular tachycardia Abnormal stress echo HERSON (acute kidney injury) (Acute) Junctional bradycardia (Acute) Acute hypotension (Acute) Acute alteration in mental status (Acute) Erectile dysfunction due to psychophysiologic disorder Medical History (Updated 12/10/23 @ 01:27 by Scott Agee MD) ADHD Surgical History (Updated 12/08/23 @ 10:03 by Mahendra Anand MD) No pertinent past surgical history Family History Father Myocardial infarction Diabetes Hypertension Brother Prostate cancer Denies family history of Ovarian cancer Breast cancer Colorectal cancer Social History Smoking Status: Never smoker Second Hand Exposure: Yes; Hx Alcohol Use: No Hx Substance Use: Yes Prescribed Medications: Marijuana Preferred Language: Danish Visual Impairment: Limited Hearing Ability: Normal Beliefs That Will Affect Care: None marital status: Current Living Situation: Family current occupational status: retired Feels Safe at Home: Yes Childhood Exposure to Second-Hand Smoke: Yes Dental Care, Regularly: Yes Physical Activity Frequency: Daily Seatbelt Use: always Sunscreen Use: No Review of Systems Review of Systems: The patient denies chest pain, palpitations, shortness of breath, dyspnea on exertion, cough, lower extremity swelling, sore throat, fevers, chills, sweats, weight change, fatigue, nausea, vomiting, diarrhea , constipation, abdominal pain, pelvic pain, blood in urine or stool, dysuria, urinary frequency or urgency, memory loss, loss of consciousness, rash, abnormal bruising or bleeding, imbalance, focal or generalized weakness, numbness or tingling in arms or legs, generalized arthralgias or myalgias, back or neck pain, or night sweats. The review of systems is otherwise negative other than for that already noted above, and at least 10 systems have been reviewed. Physical Exam Physical Exam: The patient is awake, alert and oriented 3, well developed and well nourished, normocephalic and atraumatic, lying in bed and in no acute distress. HEENT--PERRL, EOMI, mucous membranes and oropharynx normal Neck--supple. No JVD. No bruits. Thyroid normal, trachea midline, no adenopathy. Heart--normal S1 and S2. No murmurs, rubs or gallops. Lungs--clear bilaterally, no respiratory distress, no accessory muscle use. Abdomen--normal bowel sounds and soft. Nontender. Nondistended, no hernias or masses, no organomegaly. Extremities--no cyanosis or clubbing. No edema. There are good distal pulses b/l. Dermatologic--normal skin turgor, normal color, no abnormal lymph nodes, no rash. Neurologic--cranial nerves II through XII grossly intact. Rheumatologic--normal range of motion. Psychiatric--normal affect. Results & Data Results & Data Vital Signs (Past 12 Hours) Vital Signs Temp Pulse Resp BP Pulse Ox O2 Del Method 12/09/23 20:33 55 L 16 97 Room Air 12/09/23 20:30 157/97 H 12/09/23 20:18 56 L 13 95 Room Air 12/09/23 20:00 168/105 H 12/09/23 20:00 168/105 H 12/09/23 19:51 58 L 20 96 12/09/23 19:35 60 12/09/23 17:23 36.3 C L 66 20 177/87 H 95 Room Air Laboratory Results Laboratory Results WBC 4.84 K/ul (4.8-10.8) 12/09/23 17:45 RBC 4.17 M/uL (4.70-6.10) L 12/09/23 17:45 Hgb 13.8 g/dl (14.0-18.0) L 12/09/23 17:45 Hct 39.1 % (42.0-52.0) L 12/09/23 17:45 MCV 93.8 fL (80.0-100.0) 12/09/23 17:45 MCH 33.1 pg (25.0-34.0) 12/09/23 17:45 MCHC 35.3 g/dL (32.0-36.0) 12/09/23 17:45 RDW Std Deviation 41.2 fL (36.4-46.3) 12/09/23 17:45 RDW Coeff of Jaren 11.9 % (11.5-14.5) 12/09/23 17:45 Plt Count 238 K/uL (130-400) 12/09/23 17:45 MPV 11.0 fL (9.4-12.4) 12/09/23 17:45 Immature Gran % (Auto) 0.2 % 12/09/23 17:45 Neut % (Auto) 65.9 % 12/09/23 17:45 Lymph % (Auto) 21.9 % 12/09/23 17:45 Day % (Auto) 8.7 % 12/09/23 17:45 Eos % (Auto) 2.7 % 12/09/23 17:45 Baso % (Auto) 0.6 % 12/09/23 17:45 Neut # (Auto) 3.19 K/uL (1.40-6.50) 12/09/23 17:45 Lymph # (Auto) 1.06 K/uL (1.20-3.40) L 12/09/23 17:45 Day # (Auto) 0.42 K/uL (0.11-0.59) 12/09/23 17:45 Eos # (Auto) 0.13 K/uL (0.00-0.50) 12/09/23 17:45 Baso # (Auto) 0.03 K/uL (0.00-0.20) 12/09/23 17:45 Immature Gran # (Auto) 0.01 K/uL (0.01-0.20) 12/09/23 17:45 PT 11.4 Seconds (9.0-12.0) 12/09/23 17:45 INR 1.1 (0.9-1.1) 12/09/23 17:45 APTT 26 Seconds (21-31) 12/09/23 17:45 PTT Ratio 1.0 12/09/23 17:45 Sodium 138 mmol/L (136-145) 12/09/23 17:45 Potassium 3.8 mmol/L (3.5-5.1) 12/09/23 17:45 Chloride 105 mmol/L (98-107) 12/09/23 17:45 Carbon Dioxide 26 mmol/L (21-32) 12/09/23 17:45 Anion Gap 7 (3-11) 12/09/23 17:45 BUN 14 mg/dl (6-23) 12/09/23 17:45 Creatinine 0.82 mg/dl (0.6-1.4) 12/09/23 17:45 Est Cr Clr Drug Dosing 94.8 ml/min 12/09/23 17:45 Est GFR ( Amer) 106.1 ml/min 12/09/23 17:45 Est GFR (Non-Af Amer) 91.5 ml/min 12/09/23 17:45 BUN/Creatinine Ratio 17.1 (10-20) 12/09/23 17:45 Glucose 128 mg/dl (70-99(Fasting)) H 12/09/23 17:45 Calcium 9.2 mg/dl (8.6-10.3) 12/09/23 17:45 Total Bilirubin 0.4 mg/dl (0.2-1.0) 12/09/23 17:45 AST 28 U/L (13-39) 12/09/23 17:45 ALT 17 U/L (7-52) 12/09/23 17:45 Alkaline Phosphatase 56 U/L (34-104) 12/09/23 17:45 Troponin I High Sens 301.3 pg/ml (0-20) H* 12/09/23 22:57 Total Protein 6.9 gm/dl (6.0-8.3) 12/09/23 17:45 Albumin 4.2 gm/dl (3.4-5.0) 12/09/23 17:45 Globulin 2.7 gm/dl (2.5-4.0) 12/09/23 17:45 Albumin/Globulin Ratio 1.6 (0.9-2) 12/09/23 17:45 Impressions Chest X-Ray 12/09/23 17:27 SINGLE VIEW CHEST CLINICAL HISTORY: Atypical chest pain FINDINGS: A PA chest radiograph is compared to chest x-ray and chest CT dated 12/06/2023. The heart is enlarged. The pulmonary vasculature is noncongested. The lungs and pleural spaces are clear. No pneumothorax is seen. The bony thorax is grossly intact. IMPRESSION: Cardiomegaly with no active disease in the chest. ACT 112: Negative or not required by law. Electronically signed by: Korey Tse M.D. 12/09/2023 7:35 PM Code Status & VTE Plan Code Status full code PG Care Time/CCT Total # of Minutes Spent Total Time Spent with Patient: Total time spent is greater than 50% in coordination of care (as documented) at patient's floor/unit and/or counseling patient: Coding Level of Care Code 37167 INT INP/OBS CARE 3/75MIN Diagnoses Dizziness R42 Headache R51.9 Elevated troponin R79.89 Presence of drug coated stent in LAD coronary artery Z95.5 Non-ST elevation CO (NSTEMI) I21.4 CAD (coronary artery disease) I25.10 Ventricular tachycardia I47.20 HTN (hypertension) I10 Junctional bradycardia R00.1 GERD (gastroesophageal reflux disease) K21.9 Hyperlipidemia E78.5
[2023-12-09] MEDS: TICAGRELOR 90 MG TAB PO STA (21:26)
[2023-12-09] MEDS ORDERED: NITROGLYCERIN SL 0.4 MG/TAB TAB SL PRN (22:24)
[2023-12-09] MEDS: hydrALAZINE HCL 20 MG/ML VIAL IV STA (23:51)
[2023-12-09] MEDS: ACETAMINOPHEN 325 MG TAB PO PRN (23:51)
[2023-12-10] MEDS: LORazepam 0.5 MG TAB PO STA (01:45)
[2023-12-10 04:00] VITALS: O2SAT 96
[2023-12-10 06:16] LABS: Basophils # (auto) 0.04 K/uL (0.00-0.20); Basophils % (auto) 0.8 %; Eosinophils # (auto) 0.26 K/uL (0.00-0.50); Eosinophils % (auto) 5.2 %; Hemoglobin 14.1 g/dl (14.0-18.0); Immature Granulocytes # (auto) 0.02 K/uL (0.01-0.20); Immature Granulocytes % (auto) 0.4 %; Lymphocytes # (auto) 1.34 K/uL (1.20-3.40); Lymphocytes % (auto) 26.6 %; Mean Corpuscular Hemoglobin 32.9 pg (25.0-34.0); Mean Corpuscular Hgb Conc 35.3 g/dL (32.0-36.0); Mean Corpuscular Volume 93.2 fL (80.0-100.0); Mean Platelet Volume 11.3 fL (9.4-12.4); Monocytes # (auto) 0.56 K/uL (0.11-0.59); Monocytes % (auto) 11.1 %; Neutrophils # (auto) 2.82 K/uL (1.40-6.50); Neutrophils % (auto) 55.9 %; Platelet Count 231 K/uL (130-400); RDW Coefficient of Variation 11.9 % (11.5-14.5); Red Blood Count 4.29 M/uL (4.70-6.10); White Blood Count 5.04 K/ul (4.8-10.8)
[2023-12-10 06:25] LABS: BUN Creatinine Ratio 18.4 (10-20); Calcium 9.2 mg/dl (8.6-10.3); Creatinine Clr Calc Pharmacy 102.3 ml/min; Est GFR (African American) 109.4 ml/min; Est GFR (Non-African American) 94.4 ml/min; Phosphorus 3.2 mg/dl (2.5-4.9); Potassium 3.5 mmol/L (3.5-5.1)
[2023-12-10 06:39] LABS: Troponin I High Sensitivity 296.5 pg/ml (0-20)
--- NOTE | 2023-12-10 07:28 | Electrocardiogram Report ---
Test Reason : Blood Pressure : */* mmHG Vent. Rate : 68 BPM Atrial Rate : 68 BPM P-R Int : 142 ms QRS Dur : 84 ms QT Int : 384 ms P-R-T Axes : 0 -3 4 degrees QTcB Int : 408 ms Normal sinus rhythm Nonspecific T wave abnormality Abnormal ECG When compared with ECG of 06-Dec-2023 21:15, Nonspecific T wave abnormality, improved in Lateral leads Confirmed by Asaf Castillo ([id number]) on 12/10/2023 7:28:01 AM Referred By: Confirmed By: Asaf Castillo
[2023-12-10] MEDS ORDERED: LORazepam 0.5 MG TAB PO PRN (08:00)
[2023-12-10] MEDS: CHOLECALCIFEROL 25 MCG (1000 UNITS) TAB PO SCH (08:45)
[2023-12-10] MEDS: PANTOprazole 40 MG TAB PO SCH (08:45)
[2023-12-10] MEDS: TICAGRELOR 90 MG TAB PO SCH (08:46)
[2023-12-10] MEDS: ASPIRIN 81 MG ECTAB PO SCH (08:46)
[2023-12-10] MEDS: ROSUVASTATIN CALCIUM 20 MG TAB PO SCH (08:46)
[2023-12-10] MEDS: LOSARTAN POTASSIUM 50 MG TAB PO SCH (08:46)
[2023-12-10] MEDS ORDERED: NON-FORMULARY MEDICATION (Coq10 (Ubiquinol) 100 mg Capsule) PO SCH (09:00)
--- NOTE | 2023-12-10 09:21 | Cardiology Consultation ---
Date of Consultation December 10, 2023 Assessment & Plan (1) Dizziness: (2) CAD (coronary artery disease): (3) Elevated troponin: (4) HTN (hypertension): Plan 1. Dizziness: I think a more accurate term would be lightheadedness. Again, this did not involve the symptoms he had leading up to his last admission. No significant diaphoresis, gastrointestinal symptoms or presyncope. Seem to be more just a generalized sense of dizziness. It was not positional. Associated with a headache which she has had fairly frequently recently. There was some concern that he is having bradycardia as an etiology for his symptoms. Unfortunately, he was not wearing the monitor at the time he felt lightheaded yesterday. No concerning arrhythmias on his telemetry since admission. Normal sinus rhythm with only mild bradycardia. 2. Coronary artery disease: Status post PCI to D1 at the bifurcation from the LAD. 2 stents deployed. No evidence of complication. He did not present with symptoms suggesting acute stent thrombosis or any significant coronary disease. Despite the consult for chest pain, he never reported chest pain. Will continue him on dual antiplatelet therapy and high-dose rosuvastatin. 3. Elevated troponin: This is likely related to his recent intervention and stress testing. Do not believe this is indicative of an acute coronary syndrome. 4. Junctional bradycardia: Seen at the time of his last admission. This was on presentation and seem to be related to high vagal tone. The rest of his symptoms all seem to be consistent with high vagal tone. Review of the EKG suggests a competing junctional pacemaker. He has not had similar symptoms sinc e. Telemetry here has been sinus with some mild sinus bradycardia. He had good heart rate response to exercise and has intact conduction. Will continue monitoring with his outpatient device after discharge. 5. Hypertension: He continues to have elevated blood pressures. Review of his records suggest that over the years control has been suboptimal. He does have evidence of left ventricular hypertrophy on his echocardiogram as well. He would likely benefit from more intensive antihypertensive therapy. I will consider the addition of amlodipine or a diuretic. History of Present Illness Reason for Consultation: Chest pain, elevated troponin. Requesting Physician: Anuel Attending Physician: Chester Fisher DO History of Present Illness The patient is a 68-year-old gentleman recently admitted to our facility after suffering an episode of presyncope. This episode involved documented bradycardia with a competing junctional rhythm. His initial evaluation involved exercise echocardiography which was notably abnormal primarily due to episodes of ventricular tachycardia. Based on the abnormal test he underwent coronary angiography and was discovered to have an ostial stenosis involving a large diagonal branch. He underwent percutaneous intervention at the site. The remainder of his hospitalization was uncomplicated and he was discharged home. Patient states that for 2 days he was feeling well. However yesterday he began to experience symptoms of generalized lightheadedness and dizziness. This was distinct from his prior episode. He did not feel presyncopal. He had an associated right-sided headache. He checked his blood pressure at home and it was quite elevated. Based on his recent event, symptoms and elevated blood pressure he presented to the emergency room for an evaluation. He did not endorse symptoms of chest pain this morning. He did not endorse symptoms of chest pain leading up to his last admission or subsequent to his last admission. No current breathing difficulty. Again, he states that his presenting episode a few days ago was distinctly different from what he was feeling yesterday. He has not noticed any palpitations. He was prescribed a home monitor for but had some difficulty keeping it applied. He was not wearing the monitor during his recent symptoms yesterday. At the time of my interview he is feeling well. He is anxious for discharge. He no longer has a headache or dizziness. He has been ambulatory to the bathroom without symptoms. Again, no chest pain. No sense of palpitation. Allergies Allergy/AdvReac Type Severity Reaction Status Date / Time neomycin Allergy Unknown rash from Verified 12/06/23 23:53 topical ointment Penicillins Allergy Rash Verified 12/06/23 23:53 Home Medications Medication Instructions Recorded Confirmed Type cholecalciferol (vitamin D3) 25 25 mcg PO DAILY 12/06/23 12/09/23 History mcg (1,000 unit) tablet (Vitamin D3) coQ10 (ubiquinol) 100 mg capsule 0 mg PO DAILY 12/06/23 12/09/23 History irbesartan 300 mg tablet 300 mg PO DAILY 12/06/23 12/09/23 History pantoprazole 40 mg tablet,delayed 40 mg PO DAILY 12/06/23 12/09/23 History release sildenafil 50 mg tablet 50 mg PO DAILY PRN .erectile 12/06/23 12/09/23 History disfunction aspirin 81 mg tablet,delayed 81 mg PO QAM #90 tabs 12/08/23 12/09/23 Rx release nitroglycerin 0.4 mg sublingual 0.4 mg sublingual Q5M PRN chest 12/08/23 12/09/23 Rx tablet (Nitrostat) pain #1 btl rosuvastatin 10 mg tablet 40 mg (4 x 10 mg) PO HS 30 days 12/08/23 12/09/23 Rx #120 tabs ticagrelor 90 mg tablet (Brilinta) 90 mg PO BID #60 tabs 12/08/23 12/09/23 Rx Patient History Medical History (Updated 12/10/23 @ 01:27 by Scott Agee MD) ADHD Surgical History (Updated 12/08/23 @ 10:03 by Mahendra Anand MD) No pertinent past surgical history Family History Father Myocardial infarction Diabetes Hypertension Brother Prostate cancer Denies family history of Ovarian cancer Breast cancer Colorectal cancer Social History Smoking Status: Never smoker Second Hand Exposure: Yes; Do You Dip or Chew Tobacco: No; Hx Alcohol Use: No Hx Substance Use: No Preferred Language: Lithuanian Communication Ability: Effective Visual Impairment: Limited Hearing Ability: Normal Paralegals Required: No Beliefs That Will Affect Care: None marital status: Current Living Situation: Family current occupational status: retired Other Information That Helps Us Care for You: No Feels Safe at Home: Yes Safety Concerns: Feels Safe At This Time Childhood Exposure to Second-Hand Smoke: Yes Dental Care, Regularly: Yes Physical Activity Frequency: Daily Seatbelt Use: always Sunscreen Use: No Assistive Devices: None Review of Systems Review of Systems: Per HPI Physical Exam Physical Exam: The patient is alert and oriented. Mood and affect appeared normal. He answered all questions appropriately. HEENT: Pupils are equal and reactive to light and accommodation. Extraocular movements are intact. The sclerae are anicteric. Neuro: Cranial nerves intact Neck: Patient's neck is supple. He has palpable carotid pulses bilaterally without bruits on auscultation. There is no evidence of jugular venous distention. The thyroid is not enlarged. Lungs: Clear to auscultation bilaterally. He has good air movement without use of accessory muscles. No rales wheezes or rhonchi. Cardiac: Heart demonstrates a regular rate and rhythm. Normal S1 and S2. No murmurs on examination. Pulses: The patient has palpable radial pulses bilaterally that are equal in intensity. Good perfusion of the right hand. No ecchymosis at the access site in the right radial area Extremities: There was no evidence of hypoperfusion. There is no cyanosis or clubbing. There is no edema. Skin: I did not appreciate any rashes on examination today. Atrial fib rillation Results & Data Vital Signs (Past 12 Hours) Vital Signs Pulse Pulse Resp BP BP Pulse Ox Pulse Ox 12/10/23 08:45 68 20 169/98 H 96 12/10/23 07:02 53 L 12/10/23 03:59 57 L 18 146/78 H 96 12/10/23 03:00 96 12/10/23 02:46 49 L 18 148/77 H 12/10/23 01:15 59 L 22 166/85 H 98 12/09/23 23:51 60 20 181/90 H 12/09/23 23:20 55 L 12/09/23 23:00 55 L 18 181/99 H 96 12/09/23 21:30 157/94 H 12/09/23 21:30 157/94 H 12/09/23 21:30 157/94 H 12/09/23 21:30 58 L 23 157/94 H 94 O2 Del Method O2 Del Method 12/10/23 08:45 Room Air 12/10/23 07:02 12/10/23 03:59 Room Air 12/10/23 03:00 Room Air 12/10/23 02:46 12/10/23 01:15 Room Air 12/09/23 23:51 12/09/23 23:20 12/09/23 23:00 Room Air 12/09/23 21:30 12/09/23 21:30 12/09/23 21:30 12/09/23 21:30 Room Air Laboratory Results Abnormal Lab Results 12/09/23 12/09/23 12/09/23 17:45 19:30 22:57 WBC 4.84 RBC 4.17 L Hgb 13.8 L Hct 39.1 L MCV 93.8 MCH 33.1 MCHC 35.3 RDW Std Deviation 41.2 RDW Coeff of Jaren 11.9 Plt Count 238 MPV 11.0 Immature Gran % (Auto) 0.2 Neut % (Auto) 65.9 Lymph % (Auto) 21.9 Young % (Auto) 8.7 Eos % (Auto) 2.7 Baso % (Auto) 0.6 Neut # (Auto) 3.19 Lymph # (Auto) 1.06 L Young # (Auto) 0.42 Eos # (Auto) 0.13 Baso # (Auto) 0.03 Immature Gran # (Auto) 0.01 PT 11.4 INR 1.1 APTT 26 PTT Ratio 1.0 Sodium 138 Potassium 3.8 Chloride 105 Carbon Dioxide 26 Anion Gap 7 BUN 14 Creatinine 0.82 Est Cr Clr Drug Dosing 94.8 Est GFR ( Amer) 106.1 Est GFR (Non-Af Amer) 91.5 BUN/Creatinine Ratio 17.1 Glucose 128 H Calcium 9.2 Phosphorus Magnesium Total Bilirubin 0.4 AST 28 ALT 17 Alkaline Phosphatase 56 Troponin I High Sens 291.0 H* 296.7 H* 301.3 H* Total Protein 6.9 Albumin 4.2 Globulin 2.7 Albumin/Globulin Ratio 1.6 12/10/23 05:38 WBC 5.04 RBC 4.29 L Hgb 14.1 Hct 40.0 L MCV 93.2 MCH 32.9 MCHC 35.3 RDW Std Deviation 41.0 RDW Coeff of Jaren 11.9 Plt Count 231 MPV 11.3 Immature Gran % (Auto) 0.4 Neut % (Auto) 55.9 Lymph % (Auto) 26.6 Young % (Auto) 11.1 Eos % (Auto) 5.2 Baso % (Auto) 0.8 Neut # (Auto) 2.82 Lymph # (Auto) 1.34 Young # (Auto) 0.56 Eos # (Auto) 0.26 Baso # (Auto) 0.04 Immature Gran # (Auto) 0.02 PT INR APTT PTT Ratio Sodium 141 Potassium 3.5 Chloride 108 H Carbon Dioxide 26 Anion Gap 7 BUN 14 Creatinine 0.76 Est Cr Clr Drug Dosing 102.3 Est GFR ( Amer) 109.4 Est GFR (Non-Af Amer) 94.4 BUN/Creatinine Ratio 18.4 Glucose 104 H Calcium 9.2 Phosphorus 3.2 Magnesium 2.0 Total Bilirubin AST ALT Alkaline Phosphatase Troponin I High Sens 296.5 H* Total Protein Albumin 4.0 Globulin Albumin/Globulin Ratio Diagnostic Findings Cardiac catheterization dated 12/07/2023: Severe coronary disease involving 90% stenosis at the ostium of D1. Nonobstructive disease in the remaining vessels. Normal left ventricular filling pressure. No evidence of aortic stenosis. Exercise echocardiogram 12/07/2023: Exercise-induced ventricular tachycardia. Wall motion abnormality consistent with ischemia in the anterior distribution. Normal baseline LV systolic function with ejection fraction of 55 to 60%. Moderate LVH. No significant valvular heart disease. PG Care Time/CCT Total # of Minutes Spent Total Time Spent with Patient: Total time spent is greater than 50% in coordination of care (as documented) at patient's floor/unit and/or counseling patient: Coding Level of Care Code 37852 INT INP/OBS CARE 375MIN Diagnoses Dizziness R42 CAD (coronary artery disease) I25.10 Elevated troponin R79.89 HTN (hypertension) I10
--- NOTE | 2023-12-10 11:54 | Discharge Summary ---
Date of Service December 10, 2023 Admission HPI Per Admitting Provider The patient is a 68-year-old male with a past medical history including CAD status post coronary angiography with drug-eluting stent and IVUS, Status post successful PCI of LAD/D1 bifurcation with 2 drug-eluting stents on 12/07/2023, ventricular tachycardia, acute kidney injury, junctional bradycardia, hypertension, GERD and hyperlipidemia. He presents to the emergency department with throbbing right-sided headache, dizziness, near syncope, and elevated systolic blood pressure as noted above. Principal Diagnosis Dizziness/Lightheadedness Discharge Exam General: patient resting comfortably, NAD, non-toxic in appearance, answers questions appropriately. Skin: warm, dry, intact HEENT: NC/AT, anicteric sclera, conjunctiva without injection, moist mucus membranes. Heart: +S1/S2, regular, no m/r/g Lungs: equal air entry bilaterally, no rales/rhonchi/wheezes Abd: +BS, soft, NT/ND Ext: warm, no clubbing/cyanosis or edema Neuro: nonfocal,speech intact, no facial droop, moving all extremities. Discharge Data Allergies Allergy/AdvReac Type Severity Reaction Status Date / Time neomycin Allergy Unknown rash from Verified 12/06/23 23:53 topical ointment Penicillins Allergy Rash Verified 12/06/23 23:53 Consultations 12/09/23 20:30 ED Decision to Admit Stat 12/09/23 22:24 Consult Cardiology Routine Ordered Studies Laboratory Results WBC 5.04 K/ul (4.8-10.8) 12/10/23 05:38 RBC 4.29 M/uL (4.70-6.10) L 12/10/23 05:38 Hgb 14.1 g/dl (14.0-18.0) 12/10/23 05:38 Hct 40.0 % (42.0-52.0) L 12/10/23 05:38 MCV 93.2 fL (80.0-100.0) 12/10/23 05:38 MCH 32.9 pg (25.0-34.0) 12/10/23 05:38 MCHC 35.3 g/dL (32.0-36.0) 12/10/23 05:38 RDW Std Deviation 41.0 fL (36.4-46.3) 12/10/23 05:38 RDW Coeff of Jaren 11.9 % (11.5-14.5) 12/10/23 05:38 Plt Count 231 K/uL (130-400) 12/10/23 05:38 MPV 11.3 fL (9.4-12.4) 12/10/23 05:38 Immature Gran % (Auto) 0.4 % 12/10/23 05:38 Neut % (Auto) 55.9 % 12/10/23 05:38 Lymph % (Auto) 26.6 % 12/10/23 05:38 [place] % (Auto) 11.1 % 12/10/23 05:38 Eos % (Auto) 5.2 % 12/10/23 05:38 Baso % (Auto) 0.8 % 12/10/23 05:38 Neut # (Auto) 2.82 K/uL (1.40-6.50) 12/10/23 05:38 Lymph # (Auto) 1.34 K/uL (1.20-3.40) 12/10/23 05:38 [place] # (Auto) 0.56 K/uL (0.11-0.59) 12/10/23 05:38 Eos # (Auto) 0.26 K/uL (0.00-0.50) 12/10/23 05:38 Baso # (Auto) 0.04 K/uL (0.00-0.20) 12/10/23 05:38 Immature Gran # (Auto) 0.02 K/uL (0.01-0.20) 12/10/23 05:38 PT 11.4 Seconds (9.0-12.0) 12/09/23 17:45 INR 1.1 (0.9-1.1) 12/09/23 17:45 APTT 26 Seconds (21-31) 12/09/23 17:45 PTT Ratio 1.0 12/09/23 17:45 Sodium 141 mmol/L (136-145) 12/10/23 05:38 Potassium 3.5 mmol/L (3.5-5.1) 12/10/23 05:38 Chloride 108 mmol/L (98-107) H 12/10/23 05:38 Carbon Dioxide 26 mmol/L (21-32) 12/10/23 05:38 Anion Gap 7 (3-11) 12/10/23 05:38 BUN 14 mg/dl (6-23) 12/10/23 05:38 Creatinine 0.76 mg/dl (0.6-1.4) 12/10/23 05:38 Est Cr Clr Drug Dosing 102.3 ml/min 12/10/23 05:38 Est GFR ( Amer) 109.4 ml/min 12/10/23 05:38 Est GFR (Non-Af Amer) 94.4 ml/min 12/10/23 05:38 BUN/Creatinine Ratio 18.4 (10-20) 12/10/23 05:38 Glucose 104 mg/dl (70-99(Fasting)) H 12/10/23 05:38 Calcium 9.2 mg/dl (8.6-10.3) 12/10/23 05:38 Phosphorus 3.2 mg/dl (2.5-4.9) 12/10/23 05:38 Magnesium 2.0 mg/dl (1.7-2.4) 12/10/23 05:38 Total Bilirubin 0.4 mg/dl (0.2-1.0) 12/09/23 17:45 AST 28 U/L (13-39) 12/09/23 17:45 ALT 17 U/L (7-52) 12/09/23 17:45 Alkaline Phosphatase 56 U/L (34-104) 12/09/23 17:45 Troponin I High Sens 296.5 pg/ml (0-20) H* 12/10/23 05:38 Total Protein 6.9 gm/dl (6.0-8.3) 12/09/23 17:45 Albumin 4.0 gm/dl (3.4-5.0) 12/10/23 05:38 Globulin 2.7 gm/dl (2.5-4.0) 12/09/23 17:45 Albumin/Globulin Ratio 1.6 (0.9-2) 12/09/23 17:45 Impressions Chest X-Ray 12/09/23 17:27 SINGLE VIEW CHEST CLINICAL HISTORY: Atypical chest pain FINDINGS: A PA chest radiograph is compared to chest x-ray and chest CT dated 12/06/2023. The heart is enlarged. The pulmonary vasculature is noncongested. The lungs and pleural spaces are clear. No pneumothorax is seen. The bony thorax is grossly intact. IMPRESSION: Cardiomegaly with no active disease in the chest. ACT 112: Negative or not required by law. Electronically signed by: Korey Tse M.D. 12/09/2023 7:35 PM Hospital Course (1) Dizziness: (2) CAD (coronary artery disease): (3) Elevated troponin: (4) HTN (hypertension): Plan Dizziness - patient endorsed lightheadedness 12/08 evening - Symptoms were unlike his initial admission w/o diaphoresis, GI symptoms or presyncope - general dizziness. Not positional. Associated with a headache that has become more frequent - No concerning arrhythmias on his telemetry since admission. Normal sinus rhythm with only mild bradycardia. Coronary artery disease - Status post PCI to D1 at the bifurcation from the LAD. 2 stents deployed. No evidence of complication. - He did not present with symptoms suggesting acute stent thrombosis or any significant coronary disease. - Patient did not complain of any chest pain during stay - Will continue him on dual antiplatelet therapy and high-dose rosuvastatin - f/u with cardiology with Dr. Anand's office in the next 1-2 weeks. Elevated troponin - This is likely related to his recent intervention and stress testing. - Per cardiology likely not indicative of an acute coronary syndrome. Junctional bradycardia - Seen at the time of his last admission. This was on presentation and seem to be related to high vagal tone. - Many of patient's symptoms consistent with high vagal tone. Review of the EKG suggests a competing junctional pacemaker. - Telemetry here has been sinus with some mild sinus bradycardia - Patient has not reported similar symptoms since last admit 12/06 - Will continue monitoring with his outpatient device after discharge Hypertension - Patient continues to have elevated blood pressures. - Review of his records suggest that over the years control has been suboptimal - Patient with evidence of left ventricular hypertrophy on echocardiogram - Patient likely would benefit from more intensive antihypertensive therapy - Patient recently increased to Ibesartan 300 mg, can adjust as necessary on f/u Total Time Total Time Spent Total Time Spent (In Minutes): <30 Discharge Plan Discharge Items Patient Disposition: Home - Self-Care Reason For Visit: CHEST PAIN POST CORONARY STENT Discharge Diagnosis: Lightheaded/Dizzy s/p PCI and LAURA x2 to LAD/D1 Activity: Per Instructions section Non-emergency contact: Primary Care Provider and Branch Account Executive Call non-emergency contact if: your symptoms worsen, your pain is worsening and your pain is unusual for you Follow-up/Referrals: Rai Hadley [Primary Care Provider] - Diet: Heart Healthy Addtl Attending Provider Instructions: You were admitted to the hospital for dizziness and lightheadedness 12/08 s/p PCI and LAURA placement x2 on 12/06. You were started on dual antiplatelet therapy with Brilinta 90 mg PO BID and Aspirin 81 mg delayed release PO QAM. You were also given nitroglycerin 0.4 mg tablet sublingual if any chest pressure or shortness of breath. If these symptoms are relieved with the nitroglycerin notify your community chest officer. If symptoms are not relieved report to the ER. Rosuvastatin 40 mg PO at night was also started during your previous visit and should be continued once a day. A discharge summary will be sent to your primary care physician to ensure continuity of care. Please bring this discharge summary with you to your next office appointment so that your provider can review it at that time. Follow-up appointments: Follow up with Dr. Anand's office in the next 1-2 weeks Keep all your follow-up appointments as already scheduled. If you cannot make an appointment, notify your provider. Medications: Your medication list has been reviewed and reconciled upon discharge to ensure accuracy and continuity of care. An updated list of all your medications is included with your hospital discharge paperwork. Please review this list closely, and make note of any changes. We sent a new medication called Amlodipine to your pharmacy. Take Amlodipine 10mg, 1 tablet per day. Take your medications as instructed; do not skip a dose of your medicines. Make sure all of your doctors know every medicine you are taking (including [id number] medicines, vitamins, and supplements). Call your primary care provider before taking any new medicines (including over- the-counter medicines, vitamins, and supplements), because some of these may interact with your current medications, or may make your symptoms worse. Tell your primary care provider if you cannot afford your medications. CONTACT YOUR PRIMARY CARE PROVIDER if you experience any of the following: Worsening of symptoms Fever, chills, or fatigue Difficulty following your treatment plan, or difficulty taking medications CALL 911 OR GO TO THE EMERGENCY DEPARTMENT if you experience any of the following: Sudden, severe abdominal pain or nausea/vomiting Severe chest pain, or chest pain that radiates (moves) to your jaw or arm Sudden, severe shortness of breath or difficulty breathing Thank you for allowing us to participate in your care. Pending Studies at Discharge: No Stand-Alone Forms: My [facility], Smoking Cessation Medications and DC Order Prescriptions: New amlodipine 10 mg tablet 10 mg PO DAILY Qty: 30 0RF Continued sildenafil 50 mg tablet 50 mg PO DAILY PRN (Reason: .erectile disfunction) Hold Instructions: Provider's Order, until cleared for physical activity pantoprazole 40 mg tablet,delayed release (DR/EC) 40 mg PO DAILY irbesartan 300 mg tablet 300 mg PO DAILY cholecalciferol (vitamin D3) [Vitamin D3] 25 mcg (1,000 unit) Tablet 25 mcg PO DAILY coQ10 (ubiquinol) 100 mg Capsule 0 mg PO DAILY Brilinta 90 mg Tablet 90 mg PO BID Qty: 60 5RF aspirin 81 mg Tablet,Delayed Release (Dr/Ec) 81 mg PO QAM Qty: 90 3RF rosuvastatin 10 mg Tablet 40 mg PO HS 30 Days Qty: 120 5RF Rx Instructions: please substitute 40 mg tablets but want pt to use home supply first nitroglycerin [Nitrostat] 0.4 mg tablet, sublingual 0.4 mg sublingual Q5M PRN (Reason: chest pain) Qty: 1 2RF Rx Instructions: take if chest pressure or shortness of breath if you have relief notify your community chest officer if not relieved report to ER Discharge Orders: Discharge Order (Routine); Ordered 12/10/23 Ordered By: Ilya Rubio Admission Data Admit Date/Time: 12/09/23 21:02 Attending Provider: Chester Fisher Admit Provider: Scott Agee Primary Care Provider: Rai Hadley Other Providers: Scott Agee; Asaf Newton Other Interventions: Discharge Summary Assessment (RN) Last Done: 12/10/23 18:02 Supervising Physician Co-Signing Physician Notes I personally examined the patient and verified all crabtree points of history and ex am, discussed case, and agree with decision making with Dr Rubio feeling ok really wants to go home, headache gone. dizziness gone. no new complaints. d/w pt about BP control he expresses understanding. 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 HEENT normocephalic atraumatic mucous membranes moist. Breathing unlabored no accessory muscle use good effort. Skin without rashes pallor or icterus. Neuro without focal deficits. Hypertensive urgency/symptomatic hypertensiongiven headache and dizziness with pressure of about 200/100I do believe he was suffering from a symptomatic hypertensive episode. symptoms have resolved. Blood pressure still somewhat erratic but more predominantly towards a stage III range than a truly uncontrolled range. Patient really wants to get home. Extensive discussion, discussing risk-benefit of ongoing management in the hospital versus going homeand we agreed to initiate the amlodipine that we all thought was an appropriate next step and follow his pressures for a few hoursas long as we saw some degree of reasonable improvementsafe for home. Fortunately over the afternoon while his numbers were certainly not at goal they were safe enough to get him homeespecially given that his symptoms had long since resolved. Cardiology input appreciated. Safe/stable for homeinitiating amlodipine. Has PCP and cardiology follow-up next week. Resident Activity Tracking Resident Involvement: Resident Care Provided Care Provided: Adult Hospital Medicine
[2023-12-10] MEDS: amLODIPine BESYLATE 5 MG TAB PO STA (13:31)
[2023-12-10 17:33] VITALS: PULSE 82; RESP 18
[2023-12-10 18:12] VITALS: BP 170/110
--- NOTE | 2023-12-10 18:47 | Billing Data ---
Date of Service December 10, 2023 Coding Level of Care Code 37490 IN/OBS DISCH 30 MIN/LESS
--- NOTE | 2023-12-10 18:48 | Billing Data ---
Date of Service December 10, 2023 Coding Level of Care Code 96787 IN/OBS DISCH 30 MIN/LESS
== END 2023-12-10 18:02 | disposition home or self-care (01) ==
LOC: EDINP 17:08 → ED 17:08 → SUATTDRO 21:02 → EDINP 22:24